=== PATIENT | female | born 1935 | race Caucasian/White ===

== ENCOUNTER → 2023-09-15 10:00 | Outpatient (REF) | payer MEDICARE, SELFPAY ==
[2023-09-15 12:26] LABS: Hematocrit 34.5 % (37.0-47.0); Mean Corp Hgb Conc. 31.9 g/dL (33.0-37.0); Mean Corpuscular Hgb 27.6 pg (27.0-31.0); Mean Corpuscular Volume 86.7 fL (81.0-99.0); Mean Platelet Volume 9.8 fL (7.4-10.4); Platelet Count 357 10^3/uL (130-400); Red Blood Cell Count 3.98 10^6/uL (4.20-5.40); Red Cell Dist. Width 13.8 % (11.5-14.5); White Blood Cell Count 6.4 10^3/uL (4.8-10.8)
[2023-09-15 12:43] LABS: ALT (SGPT) 18 U/L (0-35); AST (SGOT) 24 U/L (14-36); Albumin 3.3 g/dl (3.5-5.0); Alkaline Phosphatase 170 U/L (38-126); Blood Urea Nitrogen 22 mg/dl (7-17); Calcium 9.7 mg/dl (8.4-10.2); Carbon Dioxide 26 mmol/L (22-30); Chloride 102 mmol/L (98-107); Glucose 97 mg/dl (70-99); Potassium 4.6 mmol/L (3.5-5.1); Sodium 136 mmol/L (135-145); Total Bilirubin 0.2 mg/dl (0.2-1.3); Total Protein 6.2 g/dl (6.3-8.2); eGFR > 60.00
== END ==
LOC: OLABPATH 10:00
PROVIDERS: ATTENDING PHYSICIAN Internal Medicine
DX: I63.9 Cerebral infarction, unspecified (principal); I10 Essential (primary) hypertension; I48.0 Paroxysmal atrial fibrillation
CPT/HCPCS: 36415; 80053; 85027

== ENCOUNTER 2024-06-07 08:09 | Inpatient (IN) | payer MEDICARE, SELFPAY ==
[2024-06-05] VITALS (9 sets, daily range): BP systolic 120–177; BP diastolic 59–119; BMI 21.3; BMI 22.9
--- NOTE | 2024-06-05 10:06 | ED.GENMED ---
History of Present Illness
General
Chief Complaint: Visual Problem
Source: patient
Exam Limitations: none
Time Seen by Provider: 06/05/24 10:00
History of Present Illness
History of Present Illness:
See MDM
Past History
Past History
ED Past Medical History: Arrthythmia and HTN
ED Past Surgical History: None
Social History
Tobacco: Non-smoker
Alcohol: None
Phy Exam
Physical Exam
Physical Exam:
See MDM
Course
Orders/Labs/Results
Orders:
Orders
06/05/24 10:02
EKG [Electrocardiogram (*1)] Stat
Reason for Study: Shortness of Breath
EKG- Treatment ONCE
06/05/24 10:05
CR Chest - 2 Views Urgent
Comment:
Reason For Exam: sob, hypoxia
06/05/24 10:10
Complete Blood Count/With Diff Urgent
Comprehensive Metabolic Panel Urgent
NT-proBNP Urgent
Troponin I Urgent
06/05/24 11:01
*Vancomycin 1,000 mg Loading Dose (consider for adults < 50 kg) Vancomycin 1 Gram/200 ml [Vancocin] 1 gram in 200 ml IV NOW
Aztreonam [Azactam] 1,000 mg IV NOW STA
06/05/24 11:15
Blood Culture Q30M
CHARLES Source: Blood/Venous
Specimen Description:
06/05/24 11:45
Blood Culture Q30M
CHARLES Source: Blood/Venous
Specimen Description:
Abnormal Lab Results
06/05/24
10:10
MCHC 30.2 L g/dL
(33.0-37.0)
RDW 15.0 H %
(11.5-14.5)
Absolute Neuts (auto) 7.1 H 10^3/uL
(1.4-6.5)
Absolute Lymphs (auto) 0.8 L 10^3/uL
(1.2-3.4)
Neutrophils % 80.6 H %
(42.2-75.2)
Lymphocytes % 8.6 L %
(20.5-51.1)
Sodium 146 H mmol/L
(135-145)
BUN 19 H mg/dl
(7-17)
Glucose 121 H mg/dl
(70-99)
06/05/24 10:10
06/05/24 10:10
Vital Signs
Initial and Last Documented VS:
Initial Vital Signs
Temp Pulse Resp BP
97.6 F 79 32 156/96
06/05/24 09:53 06/05/24 09:53 06/05/24 09:53 06/05/24 09:53
Last Documented Vital Signs
Temp Pulse Resp BP Pulse Ox
97.6 F 74 28 156/96 83
06/05/24 09:53 06/05/24 10:08 06/05/24 10:08 06/05/24 10:02 06/05/24 10:02
MDM/Problems Addressed
Differential Diagnosis Includes:
HPI and MDM Narrative:
89-year-old female presenting for evaluation of blurry vision. Patient states both eyes are blurry. She does acknowledge a mild cough and shortness of breath. On arrival, patient found to be hypoxic. Patient requiring 6 L nasal cannula on
arrival. When the oxygen was started, patient states he started to feel better. She denies any blackness in her vision. There is no field cut on exam. She denies leg swelling or leg pain. Patient states she is compliant with her Eliquis making
PE less likely. Will obtain basic blood work and chest x-ray
Physical exam
General: Weak and frail
HEENT: protecting airway. Pupils equal reactive. No field cut noted
Neck: supple
CV: No evidence of cyanosis
Resp: No accessory muscle use. Poor air exchange. No appreciable wheezing
Abd: Non-distended
Extremities: No deformities. No leg edema
Neuro: alert
Psych: Normal affect
Skin: Intact
Problems Addressed including Acute and Chronic Conditions affecting care:
1. Hypoxia
Acuity: acute
Prognosis: unstable
Details: Will obtain chest x-ray, troponin and BNP
2. Blurry vision
Acuity: acute
Prognosis: stable
Details: Potentially in the setting of the hypoxia. No visual field cut noted
Updates
Chest x-ray concerning for right middle lobe pneumonia. Given the hypoxia, will start antibiotics and admit. Given the penicillin allergy, will start vancomycin and aztreonam
Differential Diagnosis (but not limited to): Pneumonia, viral syndrome, stroke
Testing considered: CT head but she denies headache
Drug therapy (if applicable): OTC meds, please see d/c instruction regarding Rx drugs
Amount and/or Complexity of Data Reviewed
Clinical info obtained from: Patient
External data reviewed: N/A
Labs I independently reviewed (but not limited to): BNP mildly elevated
Radiology: X-ray independently reviewed: Chest x-ray concerning for right middle lobe pneumonia
Pulse Ox: hypoxic
EKG independently reviewed: Sinus rhythm, right axis, no STEMI
Workers Compensation Claims Adjuster: Sinus rhythm
Critical Care: N/A
Risk of Complication:
Social Determinants of health: Good social support
Discussed with other providers: Hospitalist
Escalation of Care includes Admit/Obs: Given the hypoxia and pneumonia, will admit for antibiotics and oxygen
Occasional wrong word or 'sound a like' substitutions may have occurred due to the inherent limitations of voice recognition software. Read the chart carefully and recognize, using context, where substitutions have occurred.
*Critical Care Note
Total Time (30-74mins, 75-104mins- exclusive of procedures): Not Applicable
ED Attending Note
-
Portions of this chart may have been created with voice recognition software.� Occasional wrong word or��sound alike� substitutions may have occurred due to the inherent limitations of voice recognition software.
Discharge Plan
Departure
Patient Disposition: Admit
Date of Disposition: 06/05/24
Time of Disposition: 11:03
Admit to: Med/Surg
Presentation/result/management discussed w/ accepting MD/DO: Hospitalist
Discharge Problem:
Hypoxia, PNA (pneumonia)
Referrals:
Venancio Grace DO [Family Provider] -
Interventions
Interventions:
*Risk Screen - Suicide Last Done: 06/05/24 10:09
*General Assessment Last Done: 06/05/24 10:09
*Neglect/Abuse Screening Last Done: 06/05/24 10:09
Discharge Date and Time
Print Language: PUERTO RICAN
[2024-06-05 10:28] LABS: % Basophils 0.7 % (0-2); % Eosinophils 2.6 % (0-6); % Immature Granulocytes 0.2 % (0-0.5); % Lymphocytes 8.6 % (20.5-51.1); % Monocytes 7.3 % (1.7-9.3); % Neutrophils 80.6 % (42.2-75.2); Absolute Basophils 0.1 10^3/uL (0-0.2); Absolute Eosinophils 0.2 10^3/uL (0-0.7); Absolute Lymphocytes 0.8 10^3/uL (1.2-3.4); Absolute Monocytes 0.6 10^3/uL (0.1-0.6); Absolute Neutrophils 7.1 10^3/uL (1.4-6.5); Hematocrit 43.4 % (37.0-47.0); Hemoglobin 13.1 g/dL (12.0-16.0); Mean Corp Hgb Conc. 30.2 g/dL (33.0-37.0); Mean Corpuscular Hgb 28.2 pg (27.0-31.0); Mean Corpuscular Volume 93.5 fL (81.0-99.0); Mean Platelet Volume 9.6 fL (7.4-10.4); Nucleated Red Blood Cells % 0 %; Platelet Count 343 10^3/uL (130-400); Red Blood Cell Count 4.64 10^6/uL (4.20-5.40); White Blood Cell Count 8.8 10^3/uL (4.8-10.8)
[2024-06-05 10:35] LABS: ALT (SGPT) 23 U/L (0-35); AST (SGOT) 28 U/L (14-36); Albumin 4.6 g/dl (3.5-5.0); Alkaline Phosphatase 124 U/L (38-126); Blood Urea Nitrogen 19 mg/dl (7-17); Calcium 9.9 mg/dl (8.4-10.2); Carbon Dioxide 27 mmol/L (22-30); Chloride 105 mmol/L (98-107); Estimated Creatinine Clearance 36 ml/min; Glucose 121 mg/dl (70-99); Potassium 4.4 mmol/L (3.5-5.1); Sodium 146 mmol/L (135-145); Total Bilirubin 0.7 mg/dl (0.2-1.3); Total Protein 7.9 g/dl (6.3-8.2); eGFR > 60.00
[2024-06-05 10:47] LABS: NT-proBNP 2240 pg/ml; Troponin I < 0.012 ng/ml
--- NOTE | 2024-06-05 11:45 | CON.NEURO ---
Neuro Assessment/Plan
Assessment
Acute onset of visual change beginning 4 days ago
Most likely secondary to toxic metabolic encephalopathy which in turn was secondary to the patient's newly discovered pneumonia
Plan
Supportive care as the patient is without symptoms currently
Check visual acuity
Continue apixaban
Continue cyanocobalamin
Continue rosuvastatin
There is no indication at this time that the patient requires revision in her use of apixaban
There is no indication at this time that the patient requires additional neuroimaging
Will follow as needed
Consultation
Order
Date of Consultation: 06/05/24
Requesting Provider: Hospitalist
Reason for Consult: Visual change
Subjective/Objective
Subjective Data
Date of Service: June 05, 2024
Right-handed
Patient presented to this hospital's emergency department with shortness of breath. Symptoms started 4 days ago with URI symptoms and simultaneous blurred vision. The patient's shortness of breath worsened prompting her presentation haziness in
vision, recurrent episode similar to her symptoms when she was in need of new glasses. Patient with equal problems in both eyes.
No other associated symptoms. Patient has had complete resolution of visual changes since presentation to this emergency department after medications were initiated.
Objective Data
Vital Signs
Temp Pulse Resp BP Pulse Ox
36.4 C 58 24 154/88 96
06/05/24 09:53 06/05/24 11:30 06/05/24 11:30 06/05/24 11:00 06/05/24 11:30
Lab Results
06/05/24 10:10
06/05/24 10:10
Sodium 146 mmol/L (135-145) H 06/05/24 10:10
Potassium 4.4 mmol/L (3.5-5.1) 06/05/24 10:10
BUN 19 mg/dl (7-17) H 06/05/24 10:10
Glucose 121 mg/dl (70-99) H 06/05/24 10:10
Calcium 9.9 mg/dl (8.4-10.2) 06/05/24 10:10
Hyi-S-Rvuhdpubkhq Pept 2240 pg/ml 06/05/24 10:10
Patient Allergies
Penicillins Allergy (Verified 06/05/24 10:15)
Unknown
sulfamethazine Allergy (Verified 06/05/24 10:15)
Unknown
trimethoprim Allergy (Verified 06/05/24 10:15)
Unknown
Review of Systems
-
History Source: Patient
All other systems: Reviewed and negative
EENT: Decreased Vision; Negative Swallowing Difficulty
Respiratory: Trouble Breathing
Cardiac: Negative Chest Pain
Abdomen/GI: Negative Incontinence of Stool
Genitourinary: Negative Incontinence
Musculoskeletal: Negative Back Pain or Neck Pain
Neuro: Negative Dizzy or Headache
Physical Exam
-
General: No Apparent Distress, Appears Stated Age and Wearing Oxygen
Eyes: OU Absent Papilledema, Round OU, Binger Conjunctivae and No Ptosis
HEENT: Anicteric and Moist Mucous Membranes
Neck: Full Range of Motion
Respiratory: No Dyspnea
Cardiac: No JVD
GI: Non-distended
Skin: Unremarkable
Extremities: No Clubbing, No Cyanosis and No Edema
Psych: Intact Judgement/Insight
Extended Neurological Exam
Mood & Affect: Mood Unremarkable and Affect Unremarkable
Attention Span & Concentration: Awake, Alert, Interactive and No Difficulty with 2 Step Request
Memory: Unremarkable
Tremor: Hand Tremor Absent and Head Tremor Absent
Speech: Quality Unremarkable and Quantity Unremarkable
Cranial Nerve II: Left Eye: Pupillary Reactivity Unremarkable, Pupillary Size Unremarkable and Visual Harmon Intact
Cranial Nerve II: Right Eye: Pupillary Reactivity Unremarkable, Pupillary Size Unremarkable and Visual Harmon Intact
Cranial Nerves III, IV, : Extraocular Movement: Extraocular Movement Full in all Directions
Cranial Nerve VII: Facial Symmetry: Normal Facial Symmetry
Cranial Nerve VIII: Hearing: Unremarkable Hearing to Normal Conversational Volume
Cranial Nerves IX, X: Palate Movement: Palate Elevation Symmetric
Cranial Nerve XI: Shoulder Shrug: Unremarkable
Cranial Nerve XII: Tongue Protusion: Midline
Muscle Strength, Overall: Full Throughout
Muscle Bulk & Tone: Tone Unremarkable and Decreased Bulk (In bilateral hands)
Pronator Drift: No Drift in Upper Extremities
Deep Tendon Reflexes: Unremarkable Throughout
Touch Sensation: Unremarkable
Coordination: Ubnzbb-zyjy-qlxcdu Testing Unremarkable
Babinski Sign: Absent Bilaterally
Data Reviewed
-
Labs: Report Reviewed
Reviewed with: Physician and Patient
Old Records: Summarized
Medications
-
Active Medications
Generic Name Dose Route Start Last Admin
Trade Name Freq PRN Reason Stop Dose Admin
Vancomycin HCl 1 gram in 200 mls @ 200 mls/hr 06/05/24 11:01
Vancocin IV 06/05/24 12:00
NOW STA
Home Medications
�Medication �Instructions �Recorded
acetaminophen 325 mg tablet 975 mg PO TID 06/05/24
(Tylenol)
amlodipine 5 mg tablet (Norvasc) 5 mg PO DAILY 06/05/24
apixaban 2.5 mg tablet (Eliquis) 2.5 mg PO BID 06/05/24
cyanocobalamin (vitamin B-12) 100 100 mcg PO DAILY 06/05/24
mcg tablet
latanoprost 0.005 % eye drops 1 drp BOTH EYES HS 06/05/24
loratadine 10 mg tablet (Loradamed) 10 mg PO DAILYPRN PRN allergies 06/05/24
metoprolol succinate 100 mg 100 mg PO DAILY 06/05/24
tablet,extended release 24 hr
(Toprol XL)
polyethylene glycol 3350 17 gram 17 g PO DAILYPRN PRN mild pain 06/05/24
oral powder packet (Miralax)
rosuvastatin 5 mg tablet (Crestor) 5 mg PO HS 06/05/24
timolol maleate 0.5 % eye drops 1 drp BOTH EYES DAILY 06/05/24
[2024-06-05] MEDS: AZACTAM 1000 MG IV (12:38)
[2024-06-05] MEDS: VANCOCIN 200 IV (12:43)
--- NOTE | 2024-06-05 13:08 | HPS.HSE ---
Family Physician
-
Family Physician: Venancio Grace
Chief Complaint
-
Lightheadedness and Blurry Vision
History of Present Illness
89 y/o female with past medical history of cerebrovascular accident in August 2023 (with RLE and numbness since then, per patient) -- was hospitalized at [facility], hip fracture s/p surgery (August 2023 -- [facility]),
wheelchair-bound (following CVA in 2023), atrial fibrillation/atrial flutter, UTI in January 2024 (hospitalized at [facility]), hypertension, hyperlipidemia, glaucoma, history of blurry vision (with the Metoprolol), osteoarthritis and osteoporosis,
presented with lightheadedness since this morning. Patient said she was feeling lightheaded (near-passing out feeling), and had episodes of lightheadedness with each episode lasting a few minutes. Around that time, she also reported her vision was
getting more blurry; she reported history of glaucoma and having blurry vision with high doses of Metoprolol -- which was reduced in the past to help with the blurry vision. She now says her blurry vision is significantly improved and she can read
and see things fine currently. Patient also reported chest congestion with mucus feeling in her chest which is improving; she had associated shortness of breath which is improving, per patient. She denied any chest pain or fever or any other new
symptoms or complaints.
Medical History
Past Medical History
Past Medical History: Reports Other (As per HPI above)
Past Surgical History: Reports Orthopedic (Hip Fracture surgery in August 2023)
Social History
Tobacco: Former Smoker
Alcohol: None
Drug: None
Family History
Family History: CAD and Other (Arthritis)
Allergies / Home Medications
Allergies reflects when Allergies were last updated in [employer].
Home Medications with original date entered in [facility]
Allergy/Medication List:
Allergies
Allergy/AdvReac Type Severity Reaction Status Date / Time
Penicillins Allergy Unknown Verified 06/05/24 10:15
sulfamethazine Allergy Unknown Verified 06/05/24 10:15
trimethoprim Allergy Unknown Verified 06/05/24 10:15
Home Medications
acetaminophen 325 mg tablet (Tylenol) 975 mg PO TID 06/05/24
amlodipine 5 mg tablet (Norvasc) 5 mg PO DAILY 06/05/24
apixaban 2.5 mg tablet (Eliquis) 2.5 mg PO BID 06/05/24
cyanocobalamin (vitamin B-12) 100 mcg tablet 100 mcg PO DAILY 06/05/24
latanoprost 0.005 % eye drops 1 drp BOTH EYES HS 06/05/24
loratadine 10 mg tablet (Loradamed) 10 mg PO DAILYPRN PRN allergies 06/05/24
metoprolol succinate 100 mg tablet,extended release 24 hr (Toprol XL) 100 mg PO DAILY 06/05/24
polyethylene glycol 3350 17 gram oral powder packet (Miralax) 17 g PO DAILYPRN PRN mild pain 06/05/24
rosuvastatin 5 mg tablet (Crestor) 5 mg PO HS 06/05/24
timolol maleate 0.5 % eye drops 1 drp BOTH EYES DAILY 06/05/24
Review of Systems
-
A 12 point ROS was completed and negative except as noted: Yes
Physical Exam
Vital Signs
Vital Signs
Temp Pulse Resp BP Pulse Ox
97.6 F 58 24 154/88 96
06/05/24 09:53 06/05/24 11:30 06/05/24 11:30 06/05/24 11:00 06/05/24 11:30
Physical Exam
General: No Apparent Distress, Comfortable and Conversant
HEENT: NormoCephalic and Moist mucous membranes
Respiratory: Clear
Cardiac: S1/S2 and Regular Rhythm
GI: Soft, Non Tender and Normal Bowel Sounds
Musculoskeletal: No Cyanosis and No Edema
Skin: Warm and Dry
Neuro: Awake, Alert, AO x 3, Nonfocal/grossly intact (except for bilateral lower extremity weakness (right>left) and RLE numbness: patient stated these neurological findings are chronic since August 2023) and Other (Visual Acuity intact
bilaterally)
Psych: Calm and Intact Judgment/Insight
Laboratory Results
-
06/05/24 10:10
06/05/24 10:10
Laboratory Results
Total Bilirubin 0.7 mg/dl (0.2-1.3) 06/05/24 10:10
AST 28 U/L (14-36) 06/05/24 10:10
ALT 23 U/L (0-35) 06/05/24 10:10
Alkaline Phosphatase 124 U/L (38-126) 06/05/24 10:10
Troponin I < 0.012 ng/ml 06/05/24 10:10
Impression/Plan
-
Assessment/Plan
Near Syncope
Blurry Vision - Significantly Improved
-Possibly due to hypoxia
-Echocardiogram
-EKG noted
-Trend troponins
-Monitor on telemetry monitoring
-Orthostatic Vital Signs
-Discussed case with on-call home health outreach coordinator, Dr. Page, who recommended monitoring the patient's vision for now. no need for urgent intervention or transfer
-Consulted neurology, appreciate their evaluation and recommendations
Concern for Acute Hypoxic Respiratory Failure Secondary to CHF vs. Possible Pneumonia
Recent Chest Congestion and Shortness of Breath
-Received antibiotics in the ER, although no leukocytosis or concern
-ProBNP elevated at 2240
-Lasix IV 40 mg BID -- discussed with nephrology, okay to do the Lasix in setting of patient's mild hypernatremia, as long as we do not fluid restrict patient
-No PO fluid restriction for now
-Check VBG to check for any CO2 retention
-Daily weights, I's and O's
-Cardiology consulted, appreciate their evaluation and recommendations
-Patient stated that she wishes to receive antibiotics and IV fluids this admission if needed
Mild Hypernatremia
-Sodium 146, patient is eating and drinking now
-Since will do Lasix IV 40 mg BID -- discussed with nephrology, okay to do the Lasix in setting of patient's mild hypernatremia, as long as we do not fluid restrict patient
-Monitor BMP to see whether patient needs D5W IV fluids
Cerebrovascular accident in August 2023 (with RLE and numbness since then, per patient) -- was hospitalized at [facility]
Hip fracture s/p surgery (August 2023 -- [facility]), wheelchair-bound (following CVA and hip fracture surgery in 2023)
Atrial fibrillation/atrial flutter
-Continue home Toprol XL
-Continue Eliquis
UTI in January 2024 (hospitalized at [facility])
Penicillin Allergy
Allergy to Sulfamethoxazole-Trimethoprim
Hypertension
-Continue outpatient Amlodipine and Toprol XL
Hyperlipidemia
-Continue outpatient Rosuvastatin
Glaucoma
-Continue outpatient Latanoprost and Timolol
History of blurry vision
-Patient home Metoprolol was reduced in the past to help with this
Osteoarthritis
Osteoporosis
-PT/OT
-Pain management
-Outpatient follow-up with PCP
DVT Prophylaxis: Eliquis
Code Status: DNR
I spoke extensively to patient's nephew, Toni, over the phone today. All questions and concerns were answered to satisfaction.
Total time spent on taking care of the patient today, including speaking with patient's family, neurology, emergency room provider, and ophthalmology, chart review, placing orders, documentation was 80 minutes.
[2024-06-05 15:05] LABS: Venous Blood Gas B.E. 2.5 mmol/L (-4 to +4); Venous Blood Gas HCO3 28.8 mmol/L (22-27); Venous Blood Gas pCO2 51 mmHg (35-48); Venous Blood Gas pH 7.36 (7.32-7.43); Venous Blood Gas pO2 47 mmHg (30-50)
--- NOTE | 2024-06-05 17:09 | CON.CAR ---
Consultation
Consultation Request
Date/Time Consultation Requested: 06/05/2024
Date/Time Consultation Performed: 06/05/2024
Requesting Provider: Dr. Nesbitt
Performing Provider: Dr. Cabrera
Reason for Consultation: CHF
Medical History
-
History of Present Illness:
89-year-old woman with history of CVA, atrial fibrillation/atrial flutter, maintained on Eliquis, hypertension and hypercholesterolemia who presented with lightheadedness patient reported that she felt lightheaded while watching TV and her vision
felt blurry symptoms persisted for hours. She had intermittent symptoms like this throughout the week. No palpitations heart racing. Denied feeling like she was going to faint. No sense of room spinning. No chest pain palpitations or heart
racing patient reports being nonambulatory since her CVA she has right lower extremity weakness. On presentation patient noted to be hypoxemic with oximetry of 83%. Patient reports improvement of her symptoms shortly after treatment in the ER.
Chest x-ray with bibasilar opacification right greater than left suggesting subsegmental atelectasis and/or pneumonia and possible right greater than left small effusions
. Troponin less than 0.012 proBNP 0
ECG sinus rhythm nonspecific ST abnormality
Past medical history
CVA August 2023
A-fib/atrial flutter.
Hypertension
Hypercholesterolemia
Glaucoma
Osteoporosis
Hip fracture August 2023
Past Medical History
Past Medical History: Other
Social History
Tobacco: Non-Smoker
Family History
Family History: Reviewed & Not Pertinent
Allergies / Home Medications
Allergy/AdvReac Type Severity Reaction Status Date / Time
Penicillins Allergy Unknown Verified 06/05/24 10:15
sulfamethazine Allergy Unknown Verified 06/05/24 10:15
trimethoprim Allergy Unknown Verified 06/05/24 10:15
�Medication �Instructions �Recorded �Confirmed �Type
acetaminophen 325 mg tablet 975 mg PO TID 06/05/24 06/05/24 History
(Tylenol)
amlodipine 5 mg tablet (Norvasc) 5 mg PO DAILY 06/05/24 06/05/24 History
apixaban 2.5 mg tablet (Eliquis) 2.5 mg PO BID 06/05/24 06/05/24 History
cyanocobalamin (vitamin B-12) 100 100 mcg PO DAILY 06/05/24 06/05/24 History
mcg tablet
latanoprost 0.005 % eye drops 1 drp BOTH EYES HS 06/05/24 06/05/24 History
loratadine 10 mg tablet (Loradamed) 10 mg PO DAILYPRN PRN allergies 06/05/24 06/05/24 History
metoprolol succinate 100 mg 100 mg PO DAILY 06/05/24 06/05/24 History
tablet,extended release 24 hr
(Toprol XL)
polyethylene glycol 3350 17 gram 17 g PO DAILYPRN PRN mild pain 06/05/24 06/05/24 History
oral powder packet (Miralax)
rosuvastatin 5 mg tablet (Crestor) 5 mg PO HS 06/05/24 06/05/24 History
timolol maleate 0.5 % eye drops 1 drp BOTH EYES DAILY 06/05/24 06/05/24 History
Review of Systems
-
All other systems: Negative unless noted
Physical Exam
Vital Signs
Temp Pulse Resp BP Pulse Ox
97.8 F 68 20 147/73 97
06/05/24 15:50 06/05/24 15:50 06/05/24 15:50 06/05/24 15:50 06/05/24 15:50
Lab Results
06/05/24 10:10
Troponin I < 0.012 ng/ml 06/05/24 10:10
Spq-C-Gwtwgysaoql Pept 2240 pg/ml 06/05/24 10:10
Physical Exam
General: Well Developed
HEENT: Normocephalic
Cardiac: Regular Rhythm and Other (Low pitched systolic murmur greatest at the apex)
GI: Soft, Non Distended, Normal Bowel Sounds, Organomegaly (None detected) and Other
Musculoskeletal: No Clubbing, No Cyanosis and No Edema
Neuro: Awake
Impression / Plan
-
Respiratory insufficiency
-Continue antibiotics as directed by the hospitalist.
-Small effusions reported on chest x-ray proBNP a little over 1999. Possible component of acute left heart failure. Will assess response of diuretics already given. Continue to monitor renal function
-Echocardiogram on 06/07/2024
.
Lightheadedness with associated vision change. May be related to hypoxemia. Responded promptly to treatment in the ER. Patient may have had improvement with O2. No recurrence since being in the hospital. No evidence of hypotension or arrhythmia
since being hospitalized.
-Optimize respiratory status
-Monitor on telemetry
-Echocardiogram 06/07/2024
.
Murmur. Low pitched systolic murmur greatest at the apex. Assess with echo
.
Atrial fibrillation. Prior history
-In sinus rhythm on admission
-CHADSVASC 6 (age greater than 75, CVA, hypertension, female)
-Continue anticoagulation with Eliquis.
Hypertension. Stable continue to monitor on current therapy
Neuro.history of CVA. Residual right-sided weakness. Visual changes reported may be related to hypoxemia.
-Neurology consulted
Data Reviewed
-
EKG: Tracing Personally Visualized and interpreted and Report Reviewed by me
Radiology: Report Reviewed by me
Medical Tests (Nuc Med, Echo etc): Report Reviewed by me
Labs: Labs Reviewed by me
[2024-06-05] MEDS: TYLENOL 975 MG PO ×2 (17:50→21:00)
[2024-06-05] MEDS: MUCINEX 600 MG PO ×2 (17:51→20:26)
[2024-06-05] MEDS: LASIX 40 MG IV (17:51)
[2024-06-05] MEDS: ELIQUIS 2.5 MG PO (20:26)
[2024-06-05 20:56] LABS: Blood Urea Nitrogen 19 mg/dl (7-17); Calcium 9.2 mg/dl (8.4-10.2); Carbon Dioxide 27 mmol/L (22-30); Chloride 106 mmol/L (98-107); Estimated Creatinine Clearance 36 ml/min; Glucose 109 mg/dl (70-99); Potassium 3.9 mmol/L (3.5-5.1); Sodium 142 mmol/L (135-145); eGFR > 60.00
[2024-06-05] MEDS: CRESTOR 5 MG PO (21:00)
[2024-06-05] MEDS: XALATAN OPHTHALMIC SOLUTION 1 DROP BOTH EYES (21:04)
[2024-06-05 21:06] LABS: Troponin I < 0.012 ng/ml
[2024-06-06] VITALS (8 sets, daily range): BP systolic 106–160; BP diastolic 58–107; PULSE 65–76; O2SAT 94–97; BMI 21.9
[2024-06-06 03:29] LABS: Blood Urea Nitrogen 16 mg/dl (7-17); Calcium 9.2 mg/dl (8.4-10.2); Carbon Dioxide 28 mmol/L (22-30); Chloride 106 mmol/L (98-107); Estimated Creatinine Clearance 36 ml/min; Glucose 90 mg/dl (70-99); Potassium 3.9 mmol/L (3.5-5.1); Sodium 144 mmol/L (135-145); eGFR > 60.00
[2024-06-06 03:38] LABS: Troponin I < 0.012 ng/ml
[2024-06-06 04:43] LABS: B.E. 4.5 mmol/L; HCO3 29.2 mmol/L (21-28); PCO2 43 mmHg (32-35); PO2 75 mmHg (83-108); pH 7.44 (7.35-7.45)
[2024-06-06 06:19] LABS: Blood Urea Nitrogen 16 mg/dl (7-17); Calcium 9.1 mg/dl (8.4-10.2); Carbon Dioxide 30 mmol/L (22-30); Chloride 105 mmol/L (98-107); Estimated Creatinine Clearance 36 ml/min; Glucose 92 mg/dl (70-99); Magnesium 1.8 mg/dl (1.6-2.3); Potassium 3.8 mmol/L (3.5-5.1); Sodium 142 mmol/L (135-145); eGFR > 60.00
[2024-06-06 06:54] LABS: % Basophils 0.5 % (0-2); % Eosinophils 4.4 % (0-6); % Immature Granulocytes 0.3 % (0-0.5); % Lymphocytes 11.7 % (20.5-51.1); % Neutrophils 73.1 % (42.2-75.2); Absolute Eosinophils 0.3 10^3/uL (0-0.7); Absolute Lymphocytes 0.7 10^3/uL (1.2-3.4); Absolute Monocytes 0.6 10^3/uL (0.1-0.6); Absolute Neutrophils 4.4 10^3/uL (1.4-6.5); Hematocrit 32.9 % (37.0-47.0); Hemoglobin 10.5 g/dL (12.0-16.0); Mean Corp Hgb Conc. 31.9 g/dL (33.0-37.0); Mean Corpuscular Hgb 29.2 pg (27.0-31.0); Mean Corpuscular Volume 91.6 fL (81.0-99.0); Mean Platelet Volume 9.4 fL (7.4-10.4); Nucleated Red Blood Cells % 0 %; Platelet Count 227 10^3/uL (130-400); Red Blood Cell Count 3.59 10^6/uL (4.20-5.40); Red Cell Dist. Width 14.7 % (11.5-14.5); White Blood Cell Count 6.1 10^3/uL (4.8-10.8)
[2024-06-06 07:05] LABS: O2 Therapy 90%
[2024-06-06 09:05] LABS: Blood Urea Nitrogen 14 mg/dl (7-17); Calcium 9.2 mg/dl (8.4-10.2); Carbon Dioxide 31 mmol/L (22-30); Chloride 104 mmol/L (98-107); Estimated Creatinine Clearance 36 ml/min; Glucose 86 mg/dl (70-99); Potassium 4.1 mmol/L (3.5-5.1); Sodium 144 mmol/L (135-145); eGFR > 60.00
[2024-06-06] MEDS: MUCINEX 600 MG PO ×2 (09:21→20:08)
[2024-06-06] MEDS: LASIX 40 MG IV ×2 (09:21→16:32)
[2024-06-06] MEDS: TYLENOL 975 MG PO ×3 (09:21→22:11)
[2024-06-06] MEDS: VITAMIN B-12 100 MCG PO (09:21)
[2024-06-06] MEDS: NORVASC 5 MG PO (09:21)
[2024-06-06] MEDS: TOPROL XL 100 MG PO (09:21)
[2024-06-06] MEDS: ELIQUIS 2.5 MG PO ×2 (09:21→20:08)
[2024-06-06] MEDS: TIMOPTIC 0.5% OPHTHALMIC SOLUTION 1 DROP BOTH EYES (09:22)
[2024-06-06 09:25] LABS: Troponin I < 0.012 ng/ml
--- NOTE | 2024-06-06 11:04 | CM ---
Patient seen at bedside.
IA completed. KIMBALL form explained & signed.
Patient is a resident at [facility] since September 2023
Spoke with nurse Crowe at [facility]
States wheelchair bound, has had [facility] in the past
Will need scripts ? VN
PLOF: wheelchair
DME: wheelchair, shower chair, grab bars
Denies hh/does not recall snf
PCP: Venancio Grace
PHARMACY: [facility]
PLAN: [facility]
--- NOTE | 2024-06-06 11:48 | W.PN.CD ---
Today's Communication / Plan
-
feels well no recurrent lightheadedness or vision changes. I suspect a lot of these symptoms were related to Hypoxemia on presentation
Continue to optimize resp status.
rosie O2 as tolerated
continue diuretic with close monitoring of renal function
echo 06/06/24
Impression / Plan
-
Respiratory insufficiency
-Continue antibiotics as directed by the hospitalist.
-Small effusions reported on chest x-ray proBNP a little over 1999. Possible component of acute left heart failure. Will assess response of diuretics already given. Continue to monitor renal function
-Echocardiogram on 06/07/2024
.
Lightheadedness with associated vision change. May be related to hypoxemia. Responded promptly to treatment in the ER. Patient may have had improvement with O2. No recurrence since being in the hospital. No evidence of hypotension or arrhythmia
since being hospitalized.
-Optimize respiratory status
-Monitor on telemetry
-Echocardiogram 06/07/2024
.
Murmur. Low pitched systolic murmur greatest at the apex. Assess with echo
.
Atrial fibrillation. Prior history
-In sinus rhythm on admission
-CHADSVASC 6 (age greater than 75, CVA, hypertension, female)
-Continue anticoagulation with Eliquis.
Hypertension. Stable continue to monitor on current therapy
Neuro.history of CVA. Residual right-sided weakness. Visual changes reported may be related to hypoxemia.
-Neurology consulted
Physical Exam
Vital Signs/Labs
Vital Signs
Temp Pulse Resp BP Pulse Ox
97.9 F 62 17 120/77 94
06/06/24 11:00 06/06/24 11:00 06/06/24 11:00 06/06/24 11:00 06/06/24 11:00
06/05/24 06/06/24 06/07/24
06:59 06:59 06:59
Actual Weight 44.271 kg
06/06/24 04:26
06/06/24 08:06
Magnesium Cancelled 06/06/24 06:00
06/05/24
10:10
Cjw-G-Rzhjxgxqjjd Pept 2240
LAB Results
06/05/24 06/05/24 06/05/24
10:10 16:00 20:34
Troponin I < 0.012 Cancelled < 0.012
06/05/24 06/06/24 06/06/24
22:00 02:37 08:06
Troponin I Cancelled < 0.012 < 0.012
Physical Exam
Constitutional: No acute distress
Cardiovascular: Rhythm & rate is regular and Systolic murmur present
Respiratory: Respiratory effort normal
GI: Soft and Normal bowel sounds
Neuro/Psych: Alert
Data Reviewed
-
Date of Service: June 06, 2024
Medical Decision Making: Reviewed Test Results
Echo: Report Reviewed by me
X-Ray/CT/US/MRI/NUC/PET: Report Reviewed by me
Medical Tests (PFT, Pathology etc): Report Reviewed by me
Labs: Labs Reviewed by me
[2024-06-06 11:49] LABS: Urine Albumin Negative (Neg - Trace); Urine Bilirubin Negative (Negative); Urine Character Clear (Clear); Urine Color Yellow; Urine Glucose Negative (Negative); Urine Ketone Negative (Negative); Urine Leukocyte 1+ (Negative); Urine Nitrite Negative (Negative); Urine Occult Blood Negative (Negative); Urine Urobilinogen Negative (Neg - 1+)
[2024-06-06 12:07] LABS: Urine Squamous Cell >30 /LPF (Few)
[2024-06-06 12:08] LABS: Urine White Cell 30-40 /HPF (0-5)
[2024-06-06 12:09] LABS: Urine Red Blood Cell 0-2 /HPF (0-2)
--- NOTE | 2024-06-06 12:10 | W.PN.HOSP.TC ---
Today's Communication/Plan
-
Continue IV diuresis -- symptoms improved significantly since admission
Appreciate pulm eval
Appreciate cardio
Assessment / Plan
Assessment / Plan
Physical Exam
General: Not in Acute Distress
HEENT: Normocephalic and Moist mucous membranes
Respiratory: Clear to Auscultation Bilaterally
Cardiac: S1/S2 and Regular Rhythm
GI: Soft, Non Tender and Normal Bowel Sounds
Musculoskeletal: No Cyanosis and No Edema
Skin: Warm and Dry
Neuro: Awake, Alert, AO x 3, Nonfocal/grossly intact (except for bilateral lower extremity weakness (right>left) and RLE numbness: patient stated these neurological findings are chronic since August 2023) and Other (Visual Acuity intact
bilaterally)
Psych: Calm and Intact Judgment/Insight
Assessment/Plan
89 y/o female with past medical history of cerebrovascular accident in August 2023 (with RLE and numbness since then, per patient) -- was hospitalized at [facility], hip fracture s/p surgery (August 2023 -- [facility]),
wheelchair-bound (following CVA in 2023), atrial fibrillation/atrial flutter, UTI in January 2024 (hospitalized at [place]), hypertension, hyperlipidemia, glaucoma, history of blurry vision (with the Metoprolol), osteoarthritis and osteoporosis,
presented with lightheadedness since 06/05/24 morning. Patient said she was feeling lightheaded (near-passing out feeling), and had episodes of lightheadedness with each episode lasting a few minutes. Around that time, she also reported her vision
was getting more blurry; she reported history of glaucoma and having blurry vision with high doses of Metoprolol -- which was reduced in the past to help with the blurry vision. This admission, she said her blurry vision is significantly improved
and she can read and see things fine at the time of admission. Patient also reported chest congestion with mucus feeling in her chest which is improving; she had associated shortness of breath which is improving, per patient.
Near Syncope - RESOLVED
Blurry Vision - RESOLVED
-Possibly due to hypoxia
-Echocardiogram
-EKG noted
-Troponins negative so far
-Monitor on telemetry monitoring
-Orthostatic Vital Signs negative
-Discussed on 06/05/24 patient's case with on-call electrician assistant, Dr. Page, who recommended monitoring the patient's vision for now. no need for urgent intervention or transfer
-Consulted neurology, appreciate their evaluation and recommendations
Acute Hypoxic Respiratory Failure Secondary to CHF vs. Possible Pneumonia -- patient does not use oxygen at home
Recent Chest Congestion and Shortness of Breath - RESOLVED
-Received antibiotics in the ER, although no leukocytosis or concern for pneumonia
-Patient denies any signs or symptoms of pneumonia currently
-No antibiotics needed at this time
-ProBNP elevated at 2240
-Lasix IV 40 mg BID -- discussed with nephrology, okay to do the Lasix in setting of patient's mild hypernatremia, as long as we do not fluid restrict patient
-No PO fluid restriction for now
-Daily weights, I's and O's
-Cardiology consulted, appreciate their evaluation and recommendations
-Patient stated that she wishes to receive antibiotics and IV fluids this admission if needed
Hypercapnia on Blood Gas Studies
-Consulted pulm, appreciate their evaluation and recommendations
Mild Hypernatremia - RESOLVED
-Sodium 146, patient is eating and drinking now
-Since will do Lasix IV 40 mg BID -- discussed with nephrology, okay to do the Lasix in setting of patient's mild hypernatremia, as long as we do not fluid restrict patient
-Monitor BMP
Cerebrovascular accident in August 2023 (with RLE and numbness since then, per patient) -- was hospitalized at [facility]
Hip fracture s/p surgery (August 2023 -- [facility]), wheelchair-bound (following CVA and hip fracture surgery in 2023)
Atrial fibrillation/atrial flutter
-Continue home Toprol XL
-Continue Eliquis
UTI in January 2024 (hospitalized at [place])
Penicillin Allergy
Allergy to Sulfamethoxazole-Trimethoprim
Hypertension
-Continue outpatient Amlodipine and Toprol XL
Hyperlipidemia
-Continue outpatient Rosuvastatin
Glaucoma
-Continue outpatient Latanoprost and Timolol
History of blurry vision
-Patient home Metoprolol was reduced in the past to help with this
Osteoarthritis
Osteoporosis
-PT/OT
-Pain management
-Outpatient follow-up with PCP
DVT Prophylaxis: Eliquis
Code Status: DNR
Anticipated Discharge: 24 - 48 hours
Subjective/Interval History
-
Date of Service: June 06, 2024
Patient was seen and examined. She reported her symptoms are significantly improved compared to when she came in - she had a very brief episode of lightheadedness and very brief blurry vision when she sat up but overall this is very much improved
per patient, and she denied any fever, cough, chest pain or shortness of breath.
Objective Data
-
Labs:
Laboratory Results
06/06/24 06/06/24 06/06/24
02:37 04:24 04:26
WBC 6.1
Hgb 10.5 L
Hct 32.9 L
Plt Count 227 D
HCO3 29.2 H
Sodium 144 142
Potassium 3.9 3.8
Chloride 106 105
Carbon Dioxide 28 30
BUN 16 16
Creatinine 0.5 L 0.6
Glucose 90 92
Calcium 9.2 9.1
06/06/24 06/06/24
06:00 08:06
WBC
Hgb
Hct
Plt Count
HCO3
Sodium Cancelled 144
Potassium Cancelled 4.1
Chloride Cancelled 104
Carbon Dioxide Cancelled 31 H
BUN Cancelled 14
Creatinine Cancelled 0.6
Glucose Cancelled 86
Calcium Cancelled 9.2
Vital Signs:
Vital Signs
Temp Pulse Resp BP Pulse Ox
97.9 F 62 17 120/77 94
06/06/24 11:00 06/06/24 11:00 06/06/24 11:00 06/06/24 11:00 06/06/24 11:00
I&O
06/05/24 06/06/24 06/07/24
06:59 06:59 06:59
Intake Total 120 / 120
Balance 120 / 120
--- NOTE | 2024-06-06 12:23 | CON.PUL ---
Consultation
Consultation Request
Date/Time Consultation Requested: 06/06/24
Date/Time Consultation Performed: 06/06/24
Performing Provider: Elia
Reason for Consultation: Hypoxemia
Medical History
-
History of Present Illness:
Patient is an 89-year-old female with previous history of CVA, A-fib/a flutter, UTI, hypertension presenting to ER with lightheadedness x 1 day. She had feeling of lightheadedness with near syncope, with associated changes in vision, shortness
of breath. Chest x-ray demonstrating mild cardiomegaly with right greater than left basilar opacification, proBNP greater than 2000.
Denies prior history of lung disease, lifelong non-smoker.
Denies family history of lung disease.
Past Medical History
Past Medical History: Other (see list below)
Social History
Tobacco: Non-smoker
Alcohol: None
Drug: None
Family History
Family History: Reviewed & Not Pertinent
Allergies / Home Medications
Allergies
Allergy/AdvReac Type Severity Reaction Status Date / Time
Penicillins Allergy Unknown Verified 06/05/24 10:15
sulfamethazine Allergy Unknown Verified 06/05/24 10:15
trimethoprim Allergy Unknown Verified 06/05/24 10:15
Home Medications
�Medication �Instructions �Recorded �Confirmed �Last Taken �Type
acetaminophen 325 mg tablet 975 mg PO TID 06/05/24 06/05/24 Unknown History
(Tylenol)
amlodipine 5 mg tablet (Norvasc) 5 mg PO DAILY Blood Pressure 06/05/24 06/05/24 Unknown History
apixaban 2.5 mg tablet (Eliquis) 2.5 mg PO BID Blood Clot 06/05/24 06/05/24 Unknown History
Prevention/Tx
cyanocobalamin (vitamin B-12) 100 100 mcg PO DAILY Smoking Cessation 06/05/24 06/05/24 Unknown History
mcg tablet
latanoprost 0.005 % eye drops 1 drp BOTH EYES HS Eye Condition 06/05/24 06/05/24 Unknown History
loratadine 10 mg tablet (Loradamed) 10 mg PO DAILYPRN PRN allergies 06/05/24 06/05/24 Unknown History
metoprolol succinate 100 mg 100 mg PO DAILY Heart 06/05/24 06/05/24 Unknown History
tablet,extended release 24 hr Disease/Condition
(Toprol XL)
polyethylene glycol 3350 17 gram 17 g PO DAILYPRN PRN mild pain 06/05/24 06/05/24 Unknown History
oral powder packet (Miralax)
rosuvastatin 5 mg tablet (Crestor) 5 mg PO HS High Cholesterol 06/05/24 06/05/24 Unknown History
timolol maleate 0.5 % eye drops 1 drp BOTH EYES DAILY Eye Condition 06/05/24 06/05/24 Unknown History
Review of Systems
-
History Source: Patient
All other systems: Negative unless noted
Vitals / Labs / Diagnostic Testing
Vital Signs
Temp Pulse Resp BP Pulse Ox
97.9 F 62 17 120/77 94
06/06/24 11:00 06/06/24 11:00 06/06/24 11:00 06/06/24 11:00 06/06/24 11:00
Lab Data
06/06/24 04:26
06/06/24 08:06
Laboratory Results
06/06/24
04:24
pH 7.44
pCO2 43 H
pO2 75 L
HCO3 29.2 H
O2 Delivery Level 90%
Diagnostic Testing:
Physical Exam
-
HEENT: Normocephalic, Anicteric and Moist Mucous Membranes
Cardiovascular: S1/S2, Regular Rhythm and Peripheral Edema
Respiratory: Rales and Non-Labored Respirations
GI: Soft, Non Distended and Non Tender
Neurology: Awake, Alert, Oriented and No Motor Deficits
Skin: Warm, Dry and Good Color
General: Comfortable and Other (NAD)
Assessment
-
Patient is an 89-year-old female with previous history of CVA, A-fib/a flutter, UTI, hypertension presenting to ER with lightheadedness x 1 day. She had feeling of lightheadedness with near syncope, with associated changes in vision, shortness
of breath. Chest x-ray demonstrating mild cardiomegaly with right greater than left basilar opacification, proBNP greater than 2000. We are consulted for eval.
Acute hypoxic respiratory failure
Acute heart failure exacerbation
Effusions on the chest x-ray right greater than left
Anemia, hemoglobin 10
Lightheadedness, presyncope
Shortness of breath
Conditions present prior to admission
Hip fracture status post surgery August 2023 @[facility]
Former smoker
CVA status post right-sided weakness, wheelchair-bound
A-fib/A-flutter
UTI
Plan
Hypoxemia noted on arrival, O2 marlene 88%
She had not been placed on O2 when hospitalized at [facility] for her hip repair
Home O2 evaluation eventually
Denies prior history of lung disease, lifelong non-smoker.
Denies family history of lung disease.
Suspect patient has possible PE given recent hip fracture, wheelchair bound status
Can obtain CTA now to r/o
CXR/CT obtained indicating possible CHF as well, effusion noted R>L
proBNP elevated
Diuresis per team
No prior ECHO for review, obtain records from [facility]
Had CVA w/u at that time
Repeat imaging in next 24-48 hours following diuresis
Further w/u pending progress
Discussed with patient and nephew at bedside
We will follow
Diagnostic Data
Chest X-Ray: 06/05/24- Mild cardiomegaly. Bibasilar opacification, right greater than left at least in part suggesting subsegmental atelectasis and/or pneumonia and possible right greater than left small pleural effusions.
CT Scan:
Echo:
PFT's:
Reports and relevant images were personally reviewed.
Total time spent on this consultation __75__ minutes which includes review of history, physical exam, medications, laboratory data, personal review of imaging, extensive review of outpatient records, discussion with care team and respiratory therapy.
[2024-06-06] MEDS: XALATAN OPHTHALMIC SOLUTION 1 DROP BOTH EYES (22:11)
[2024-06-06] MEDS: CRESTOR 5 MG PO (22:12)
[2024-06-07 03:55] VITALS: BP 112/68
[2024-06-07 06:00] VITALS: BMI 21.8
--- NOTE | 2024-06-07 07:27 | W.PN.HOSP.TC ---
Today's Communication/Plan
-
Symptoms improved
Stop diuretics
Wean off oxygen
Assessment / Plan
Assessment / Plan
Physical Exam
General: Not in Acute Distress
HEENT: Normocephalic and Moist mucous membranes
Respiratory: Clear to Auscultation Bilaterally
Cardiac: S1/S2 and Regular Rhythm
GI: Soft, Non Tender and Normal Bowel Sounds
Musculoskeletal: No Cyanosis and No Edema
Skin: Warm and Dry
Neuro: Awake, Alert, AO x 3, Nonfocal/grossly intact (except for bilateral lower extremity weakness (right>left) and RLE numbness: patient stated these neurological findings are chronic since August 2023) and Other (Visual Acuity intact
bilaterally)
Psych: Calm and Intact Judgment/Insight
Assessment/Plan
89 y/o female with past medical history of cerebrovascular accident in August 2023 (with RLE and numbness since then, per patient) -- was hospitalized at [facility], hip fracture s/p surgery (August 2023 -- [facility]),
wheelchair-bound (following CVA in 2023), atrial fibrillation/atrial flutter, UTI in January 2024 (hospitalized at [place]), hypertension, hyperlipidemia, glaucoma, history of blurry vision (with the Metoprolol), osteoarthritis and osteoporosis,
presented with lightheadedness since 06/05/24 morning. Patient said she was feeling lightheaded (near-passing out feeling), and had episodes of lightheadedness with each episode lasting a few minutes. Around that time, she also reported her vision
was getting more blurry; she reported history of glaucoma and having blurry vision with high doses of Metoprolol -- which was reduced in the past to help with the blurry vision. This admission, she said her blurry vision is significantly improved
and she can read and see things fine at the time of admission. Patient also reported chest congestion with mucus feeling in her chest which is improving; she had associated shortness of breath which is improving, per patient.
Near Syncope - RESOLVED
Blurry Vision - RESOLVED
-Possibly due to hypoxia
-Echocardiogram
-EKG noted
-Troponins negative so far
-Monitor on telemetry monitoring
-Orthostatic Vital Signs negative
-Discussed on 06/05/24 patient's case with on-call reinforcing iron worker helper, Dr. Page, who recommended monitoring the patient's vision for now. no need for urgent intervention or transfer
-Consulted neurology, appreciate their evaluation and recommendations
Acute Hypoxic Respiratory Failure Secondary to CHF vs. Possible Pneumonia -- patient does not use oxygen at home
Recent Chest Congestion and Shortness of Breath - RESOLVED
-Received antibiotics in the ER, although no leukocytosis or concern for pneumonia
-Patient denies any signs or symptoms of pneumonia currently
-No antibiotics needed at this time
-ProBNP elevated at 2240
-Stop diuretics as per cardiology (previously: Lasix IV 40 mg BID -- discussed with nephrology, okay to do the Lasix in setting of patient's mild hypernatremia, as long as we do not fluid restrict patient)
-Daily weights, I's and O's
-Cardiology consulted, appreciate their evaluation and recommendations
-Patient stated that she wishes to receive antibiotics and IV fluids this admission if needed
-CT Chest negative for PE, and lower extremity ultrasound is negative for DVT
Hypercapnia on Blood Gas Studies
-Consulted pulm, appreciate their evaluation and recommendations
Mild Hypernatremia - RESOLVED
-Sodium 146, patient is eating and drinking now
-Since will do Lasix IV 40 mg BID -- discussed with nephrology, okay to do the Lasix in setting of patient's mild hypernatremia, as long as we do not fluid restrict patient
-Monitor BMP
Cerebrovascular accident in August 2023 (with RLE and numbness since then, per patient) -- was hospitalized at [facility]
Hip fracture s/p surgery (August 2023 -- [facility]), wheelchair-bound (following CVA and hip fracture surgery in 2023)
Atrial fibrillation/atrial flutter
-Continue home Toprol XL
-Continue Eliquis
UTI in January 2024 (hospitalized at [place])
Penicillin Allergy
Allergy to Sulfamethoxazole-Trimethoprim
Hypertension
-Continue outpatient Amlodipine and Toprol XL
Hyperlipidemia
-Continue outpatient Rosuvastatin
Glaucoma
-Continue outpatient Latanoprost and Timolol
History of blurry vision
-Patient home Metoprolol was reduced in the past to help with this
Osteoarthritis
Osteoporosis
-PT/OT
-Pain management
-Outpatient follow-up with PCP
DVT Prophylaxis: Eliquis
Code Status: DNR
Anticipated Discharge: 24 - 48 hours
Subjective/Interval History
-
Date of Service: June 07, 2024
Patient was seen and examined. She reported her blurry vision is a lot less, denied any new symptoms or complaints.
Objective Data
-
Labs:
Laboratory Results
06/07/24
06:00
WBC Pending
Hgb Pending
Hct Pending
Plt Count Pending
Sodium Pending
Potassium Pending
Chloride Pending
Carbon Dioxide Pending
BUN Pending
Creatinine Pending
Glucose Pending
Calcium Pending
Vital Signs:
Vital Signs
Temp Pulse Resp BP Pulse Ox
97.0 F 66 16 112/68 96
06/07/24 03:55 06/07/24 03:55 06/07/24 03:55 06/07/24 03:55 06/07/24 03:55
I&O
06/06/24 06/07/24 06/08/24
06:59 06:59 06:59
Intake Total 120 / 120 960 / 960
Balance 120 / 120 960 / 960
--- NOTE | 2024-06-07 07:46 | W.PN.CD ---
Today's Communication / Plan
-
Stop diuretics
Echo pending
Pending echo results we will sign off please call with questions/concerns
Impression / Plan
-
Respiratory insufficiency likely 2/2 pneumonia
-Continue antibiotics as directed by the hospitalist.
-Small effusions reported on chest x-ray proBNP a little over 1999. Possible component of acute left heart failure. Breathing improved will stop diuretics today
-Echocardiogram on 06/07/2024
.
Lightheadedness with associated vision change. May be related to hypoxemia. Responded promptly to treatment in the ER. Patient may have had improvement with O2. No recurrence since being in the hospital. No evidence of hypotension or arrhythmia
since being hospitalized.
-Optimize respiratory status
-Monitor on telemetry
-Echocardiogram 06/07/2024
.
Murmur. Low pitched systolic murmur greatest at the apex. Assess with echo
.
Atrial fibrillation. Prior history
-In sinus rhythm on admission
-CHADSVASC 6 (age greater than 75, CVA, hypertension, female)
-Continue anticoagulation with Eliquis.
Hypertension. Stable continue to monitor on current therapy
Neuro.history of CVA. Residual right-sided weakness. Visual changes reported may be related to hypoxemia.
-Neurology consulted
Physical Exam
Vital Signs/Labs
Vital Signs
Temp Pulse Resp BP Pulse Ox
97.0 F 66 16 112/68 96
06/07/24 03:55 06/07/24 03:55 06/07/24 03:55 06/07/24 03:55 06/07/24 03:55
06/06/24 06/07/24 06/08/24
06:59 06:59 06:59
Actual Weight 97 lb 9.6 oz 97 lb 1 oz
Magnesium Cancelled 06/06/24 06:00
06/05/24
10:10
Hae-W-Jwldoyppvur Pept 2240
LAB Results
06/05/24 06/05/24 06/05/24
10:10 16:00 20:34
Troponin I < 0.012 Cancelled < 0.012
06/05/24 06/06/24 06/06/24
22:00 02:37 08:06
Troponin I Cancelled < 0.012 < 0.012
06/06/24
14:22
Troponin I Cancelled
Physical Exam
Constitutional: No acute distress
EENT: Anicteric
Cardiovascular: Rhythm & rate is regular and Pedal edema is absent
Respiratory: Respiratory effort normal and Lungs clear to auscul.
GI: Soft
Neuro/Psych: AO x 3
Data Reviewed
-
Date of Service: June 07, 2024
EKG: Tracing Personally Visualized and interpreted (sr)
Echo: Ordered by me
Labs: Labs Reviewed by me
[2024-06-07 07:51] VITALS: BP 129/74
[2024-06-07] MEDS: TYLENOL 975 MG PO ×3 (09:03→21:26)
[2024-06-07] MEDS: MUCINEX 600 MG PO ×2 (09:03→21:26)
[2024-06-07] MEDS: VITAMIN B-12 100 MCG PO (09:03)
[2024-06-07] MEDS: NORVASC 5 MG PO (09:03)
[2024-06-07] MEDS: LASIX 40 MG IV ×2 (09:03→16:43)
[2024-06-07] MEDS: ELIQUIS 2.5 MG PO ×2 (09:03→21:27)
[2024-06-07] MEDS: TIMOPTIC 0.5% OPHTHALMIC SOLUTION 1 DROP BOTH EYES (09:05)
[2024-06-07] MEDS: TOPROL XL 100 MG PO (09:08)
[2024-06-07 09:20] LABS: % Basophils 0.5 % (0-2); % Eosinophils 3.3 % (0-6); % Immature Granulocytes 0.4 % (0-0.5); % Lymphocytes 9.3 % (20.5-51.1); % Monocytes 8.7 % (1.7-9.3); % Neutrophils 77.8 % (42.2-75.2); Absolute Eosinophils 0.2 10^3/uL (0-0.7); Absolute Lymphocytes 0.7 10^3/uL (1.2-3.4); Absolute Monocytes 0.6 10^3/uL (0.1-0.6); Absolute Neutrophils 5.7 10^3/uL (1.4-6.5); Hematocrit 40.7 % (37.0-47.0); Hemoglobin 12.7 g/dL (12.0-16.0); Mean Corp Hgb Conc. 31.2 g/dL (33.0-37.0); Mean Corpuscular Hgb 28.7 pg (27.0-31.0); Mean Corpuscular Volume 91.9 fL (81.0-99.0); Mean Platelet Volume 9.9 fL (7.4-10.4); Nucleated Red Blood Cells % 0 %; Platelet Count 307 10^3/uL (130-400); Red Blood Cell Count 4.43 10^6/uL (4.20-5.40); Red Cell Dist. Width 14.5 % (11.5-14.5); White Blood Cell Count 7.3 10^3/uL (4.8-10.8)
[2024-06-07 09:35] LABS: Blood Urea Nitrogen 20 mg/dl (7-17); Calcium 9.4 mg/dl (8.4-10.2); Carbon Dioxide 33 mmol/L (22-30); Chloride 97 mmol/L (98-107); Estimated Creatinine Clearance 36 ml/min; Glucose 89 mg/dl (70-99); Potassium 3.8 mmol/L (3.5-5.1); Sodium 142 mmol/L (135-145); eGFR > 60.00
--- NOTE | 2024-06-07 10:00 | W.PN.PUL.V3 ---
Today's Communication / Plan
-
wean oxygen.
Diuresis as tolerated.
CT chest and lower extremity ultrasound noted.
Echocardiogram noted
Assessment
-
Patient is an 89-year-old female with previous history of CVA, A-fib/a flutter, UTI, hypertension presenting to ER with lightheadedness x 1 day. She had feeling of lightheadedness with near syncope, with associated changes in vision, shortness
of breath. Chest x-ray demonstrating mild cardiomegaly with right greater than left basilar opacification, proBNP greater than 2000. We are consulted for eval.
Acute hypoxic respiratory failure
Acute heart failure exacerbation
Effusions on the chest x-ray right greater than left
Anemia, hemoglobin 10
Lightheadedness, presyncope
Shortness of breath
Conditions present prior to admission:
Hip fracture status post surgery August 2023 @[facility]
Former smoker
CVA status post right-sided weakness, wheelchair-bound
A-fib/A-flutter
UTI
Plan
Respiratory status relatively stable.
Supplemental oxygen-attempt to wean.
Home oxygen supplementation evaluation prior to discharge
She had not been placed on O2 when hospitalized at [facility] for her hip repair
Denies prior history of lung disease, lifelong non-smoker.
Denies family history of lung disease.
CT angiogram 06/07/24-no evidence for pulmonary embolism, small bilateral pleural effusions, bibasilar airspace disease-subsegmental atelectasis or pneumonia, diffuse mosaic pattern, likely reflective of small vessel was small airway disease,
moderate hiatal hernia, mild coronary artery calcifications.
Lower extremity ultrasound 06/07/24-negative for bilateral lower extremity
Note:proBNP elevated
Diuresis as tolerated.
Monitor weight, intake, output, renal function, lower extremity edema.
Cardiology following-correspondence reviewed-stopped diuretics
Echocardiogram 06/07/24-EF 65-70%, severe biatrial enlargement, PA systolic 45-50.
DVT prophylaxis-Eliquis
Repeat imaging in next 24-48 hours following diuresis
Diagnostic Data
Chest X-Ray: 06/05/24- Mild cardiomegaly. Bibasilar opacification, right greater than left at least in part suggesting subsegmental atelectasis and/or pneumonia and possible right greater than left small pleural effusions.
Reports and relevant images were personally reviewed.
Subjective Data
-
Date of Service:
Date of Service: June 07, 2024
Chief Complaint: Pulmonary Follow Up and Dyspnea Follow Up
Subjective:
no complaints of worsening shortness of breath, no chest pain or abdominal pain
Review of Systems
General: Other ( per HPI)
Objective Data
Data Reviewed
Vital Signs / I&O:
Vital Signs
Temp Pulse Resp BP Pulse Ox
97.4 F 64 18 129/74 97
06/07/24 07:51 06/07/24 07:51 06/07/24 07:51 06/07/24 07:51 06/07/24 07:51
Intake and Output
06/06/24 06/07/24 06/08/24
06:59 06:59 06:59
Intake Total 120 / 120 960 / 960
Balance 120 / 120 960 / 960
SaO2: 97
Nasal Cannula flow liters per minute: 3
Physical Exam
General: Respiratory Distress (n) and Comfortable
HEENT: Normocephalic, Anicteric and Moist Mucous Membranes
Cardiovascular: Regular Rhythm
Respiratory: Wheeze (n), Crackles, Rhonchi (n), Non-Labored Respirations, Accessory Resp Muscle Use (n) and Stridor (n)
GI: Soft, Non Distended and Non Tender
Neurology: Awake, Alert and No Motor Deficits
Skin: Warm, Good Color, Cyanosis (n), Jaundice (n) and Rash (n)
Labs/Micro/Reports
Lab Data
06/07/24 07:53
06/07/24 07:53
Microbiology
06/05/24 20:33 Nose MRSA Screen - Final
Staph aureus MRSA
06/05/24 12:19 Blood/Venous Blood Culture - Preliminary
No Growth in 24 hours- Final report to follow
06/05/24 12:19 Blood/Venous Blood Culture - Preliminary
No Growth in 24 hours- Final report to follow
[2024-06-07 11:21] VITALS: BP 135/69
--- NOTE | 2024-06-07 12:23 | CM ---
auto fleet manager reviewed patient's chart and met with patient and patient has switched to inpatient, IMM completed and placed on chart. [facility] but is able to transfer to /c independently. Patient is
currently requiring 3 liters of oxygen and will need home oxygen evaluation at discharge as patient did not require oxygen prior to admission.
Plan; Patient to return to [facility] when stable, need to see if patient is going to require oxygen at discharge.
[2024-06-07 15:17] VITALS: BP 131/82
[2024-06-07] MEDS: FLUSH (NSS) 2 FLUSH IV (16:45)
[2024-06-07 19:27] VITALS: BP 129/76
[2024-06-07] MEDS: CRESTOR 5 MG PO (21:26)
[2024-06-07] MEDS: XALATAN OPHTHALMIC SOLUTION 1 DROP BOTH EYES (22:33)
[2024-06-07 23:08] VITALS: BP 128/80
[2024-06-08 03:48] VITALS: BP 127/64
[2024-06-08 06:00] VITALS: BMI 21.8
[2024-06-08 07:01] VITALS: BP 123/86
[2024-06-08] MEDS: TOPROL XL 100 MG PO (08:07)
[2024-06-08] MEDS: MUCINEX 600 MG PO (08:07)
[2024-06-08] MEDS: TYLENOL 975 MG PO ×2 (08:07→15:21)
[2024-06-08] MEDS: ELIQUIS 2.5 MG PO (08:08)
[2024-06-08] MEDS: VITAMIN B-12 100 MCG PO (08:08)
[2024-06-08] MEDS: NORVASC 5 MG PO (08:08)
[2024-06-08] MEDS: TIMOPTIC 0.5% OPHTHALMIC SOLUTION 1 DROP BOTH EYES (08:09)
--- NOTE | 2024-06-08 08:23 | PN.CDI ---
CDI
- -
CDI:
Physician Documentation Request
Admit Date: 06/07/24 08:09
Dear Doctor Laz,
Please review the following and provide your response in the progress notes.
Clinical Indicators:
Pt admitted with acute hypoxic respiratory failure secondary to CHF vs. possible pneumonia.
Past medical history list Atrial fibrillation on Eliquis.
If possible, please provide further specificity regarding atrial fibrillation, such as:
Paroxysmal atrial fibrillation - terminates spontaneously or with intervention within 7 days of onset
Persistent atrial fibrillation - episodes of continuous AF that last more than 7 days and do not self-terminate
Permanent atrial fibrillation - when a decision has been made to accept the presence of AF and there is no further attempt to restore or maintain sinus rhythm
Other - please specify
Unable to further specify
Use of terms such as suspected, likely, concern for, or probable (associated with a specific diagnosis that is being evaluated, monitored, or treated as if it exists) are acceptable and can be coded in the inpatient setting, when documented at the
time of discharge.
Thank you,
Jennifer Butts RN, BSN
CDI Specialist
Available via [place] [employer]
Please use your independent medical judgment in providing your response.
[2024-06-08 08:50] LABS: % Basophils 0.5 % (0-2); % Eosinophils 3.7 % (0-6); % Immature Granulocytes 0.3 % (0-0.5); % Lymphocytes 9.5 % (20.5-51.1); % Monocytes 11.6 % (1.7-9.3); % Neutrophils 74.4 % (42.2-75.2); Absolute Eosinophils 0.3 10^3/uL (0-0.7); Absolute Lymphocytes 0.7 10^3/uL (1.2-3.4); Absolute Monocytes 0.9 10^3/uL (0.1-0.6); Absolute Neutrophils 5.6 10^3/uL (1.4-6.5); Hematocrit 38.7 % (37.0-47.0); Hemoglobin 11.9 g/dL (12.0-16.0); Mean Corp Hgb Conc. 30.7 g/dL (33.0-37.0); Mean Corpuscular Hgb 28.2 pg (27.0-31.0); Mean Corpuscular Volume 91.7 fL (81.0-99.0); Mean Platelet Volume 9.6 fL (7.4-10.4); Nucleated Red Blood Cells % 0 %; Platelet Count 276 10^3/uL (130-400); Red Blood Cell Count 4.22 10^6/uL (4.20-5.40); Red Cell Dist. Width 14.5 % (11.5-14.5); White Blood Cell Count 7.5 10^3/uL (4.8-10.8)
[2024-06-08 09:01] LABS: Blood Urea Nitrogen 23 mg/dl (7-17); Calcium 9.5 mg/dl (8.4-10.2); Carbon Dioxide 34 mmol/L (22-30); Chloride 94 mmol/L (98-107); Estimated Creatinine Clearance 27 ml/min; Glucose 90 mg/dl (70-99); Potassium 3.9 mmol/L (3.5-5.1); Sodium 139 mmol/L (135-145); eGFR > 60.00
--- NOTE | 2024-06-08 09:05 | W.PN.CD ---
Today's Communication / Plan
-
No new recommendations OK to discharge
Please call with questions/concerns.
Impression / Plan
-
Respiratory insufficiency likely 2/2 pneumonia
-Continue antibiotics as directed by the hospitalist.
-Small effusions reported on chest x-ray proBNP a little over 1999. Possible component of acute left heart failure. Breathing improved will stop diuretics today
-Echocardiogram on 06/07/2024
.
Lightheadedness with associated vision change. May be related to hypoxemia. Responded promptly to treatment in the ER. Patient may have had improvement with O2. No recurrence since being in the hospital. No evidence of hypotension or arrhythmia
since being hospitalized.
-Optimize respiratory status
-Monitor on telemetry
-Echocardiogram 06/07/2024
.
Murmur. Low pitched systolic murmur greatest at the apex. Assess with echo
.
Atrial fibrillation. Prior history
-In sinus rhythm on admission
-CHADSVASC 6 (age greater than 75, CVA, hypertension, female)
-Continue anticoagulation with Eliquis.
Hypertension. Stable continue to monitor on current therapy
Neuro.history of CVA. Residual right-sided weakness. Visual changes reported may be related to hypoxemia.
-Neurology consulted
Subjective: Feeling OK no new complaints
Echo: CONCLUSIONS
Normal biventricular size and systolic function without regional wall motion
abnormality.
Mild concentric left ventricular hypertrophy.
Severe biatrial enlargement.
Mild mitral regurgitation.
Moderate eccentric tricuspid regurgitation.
Estimated PASP 45-50 mmHg and estimated RA 3 mmHg.
No prior study available for comparison.
Physical Exam
Vital Signs/Labs
Vital Signs
Temp Pulse Resp BP Pulse Ox
97.6 F 62 16 123/86 99
06/08/24 07:01 06/08/24 07:01 06/08/24 07:01 06/08/24 08:07 06/08/24 07:01
06/07/24 06/08/24 06/09/24
06:59 06:59 06:59
Actual Weight 97 lb 1 oz 97 lb 1 oz
06/08/24 07:36
06/08/24 07:36
Magnesium 2.0 mg/dl (1.6-2.3) 06/07/24 07:53
06/05/24
10:10
Ori-Q-Hxitsyeuaew Pept 2240
LAB Results
06/05/24 06/05/24 06/05/24
10:10 16:00 20:34
Troponin I < 0.012 Cancelled < 0.012
06/05/24 06/06/24 06/06/24
22:00 02:37 08:06
Troponin I Cancelled < 0.012 < 0.012
06/06/24
14:22
Troponin I Cancelled
Physical Exam
Constitutional: No acute distress and Comfortable
EENT: Anicteric
Cardiovascular: Rhythm & rate is regular and Pedal edema is absent
Respiratory: Respiratory effort normal and Lungs clear to auscul.
GI: Soft
Neuro/Psych: Alert and Oriented
Data Reviewed
-
Date of Service: June 08, 2024
Medical Decision Making: Reviewed Test Results
EKG: Tracing Personally Visualized and interpreted (sr)
Labs: Labs Reviewed by me
[2024-06-08 09:14] VITALS: O2SAT 96
--- NOTE | 2024-06-08 09:15 | RESPNOTE ---
Patient states that she is unable to walk at baseline and has been wheelchair bound for months. Patient's spo2 at rest is 96%. Patient able to sit edge of bed with some assistance; lowest spo2 obtained during sit up at 92%. No o2 requirements needed
during exchange. notified.
--- NOTE | 2024-06-08 09:26 | W.PN.HOSP.TC ---
Addendum entered and electronically signed by Sanchez Nesibtt MD 06/11/24 10:25:
Concern for Diastolic Heart Failure
Pneumonia is still a likely, suspected, probable diagnosis
Original Note:
Today's Communication/Plan
-
Discharge today
Assessment / Plan
Assessment / Plan
Physical Exam
General: Not in Acute Distress
HEENT: Normocephalic and Moist mucous membranes
Respiratory: Clear to Auscultation Bilaterally
Cardiac: S1/S2 and Regular Rhythm
GI: Soft, Non Tender and Normal Bowel Sounds
Musculoskeletal: No Cyanosis and No Edema
Skin: Warm and Dry
Neuro: Awake, Alert, AO x 3, Nonfocal/grossly intact (except for bilateral lower extremity weakness (right>left) and RLE numbness: patient stated these neurological findings are chronic since August 2023) and Other (Visual Acuity intact
bilaterally)
Psych: Calm and Intact Judgment/Insight
Assessment/Plan
89 y/o female with past medical history of cerebrovascular accident in August 2023 (with RLE and numbness since then, per patient) -- was hospitalized at [facility], hip fracture s/p surgery (August 2023 -- [facility]),
wheelchair-bound (following CVA in 2023), atrial fibrillation/atrial flutter, UTI in January 2024 (hospitalized at [place]), hypertension, hyperlipidemia, glaucoma, history of blurry vision (with the Metoprolol), osteoarthritis and osteoporosis,
presented with lightheadedness since 06/05/24 morning. Patient said she was feeling lightheaded (near-passing out feeling), and had episodes of lightheadedness with each episode lasting a few minutes. Around that time, she also reported her vision
was getting more blurry; she reported history of glaucoma and having blurry vision with high doses of Metoprolol -- which was reduced in the past to help with the blurry vision. This admission, she said her blurry vision is significantly improved
and she can read and see things fine at the time of admission. Patient also reported chest congestion with mucus feeling in her chest which is improving; she had associated shortness of breath which is improving, per patient.
Near Syncope - RESOLVED
Blurry Vision - RESOLVED
-Possibly due to hypoxia
-Echocardiogram noted
-EKG noted
-Troponins negative so far
-Monitor on telemetry monitoring
-Orthostatic Vital Signs negative
-Discussed on 06/05/24 patient's case with on-call women's basketball coach, Dr. Page, who recommended monitoring the patient's vision for now. no need for urgent intervention or transfer
-Consulted neurology, appreciate their evaluation and recommendations
Acute Hypoxic Respiratory Failure Secondary to CHF vs. Possible Pneumonia -- patient does not use oxygen at home
Recent Chest Congestion and Shortness of Breath - RESOLVED
MRSA positive
-No fever, WBC count
-Received antibiotics in the ER, although no leukocytosis or concern for pneumonia
-Patient denies any signs or symptoms of pneumonia currently
-Continue Cefdinir 300 mg daily (renally-dosed) and Doxycycline 100 mg PO BID for another 4 days -- discussed this with clinical pharmacist Minnie Rey and this regimen is okay to do, appreciate Minnie's help
-ProBNP elevated at 2240
-Stop diuretics as per cardiology (previously: Lasix IV 40 mg BID -- discussed with nephrology, okay to do the Lasix in setting of patient's mild hypernatremia, as long as we do not fluid restrict patient)
-Daily weights, I's and O's
-Cardiology consulted, appreciate their evaluation and recommendations
-Patient stated that she wishes to receive antibiotics and IV fluids this admission if needed
-CT Chest negative for PE, and lower extremity ultrasound is negative for DVT
-Patient does not need home oxygen -- she was saturating in the 90s both on lying down and sitting up
Hypercapnia on Blood Gas Studies
-Consulted pulm, appreciate their evaluation and recommendations
Mild Hypernatremia - RESOLVED
-Sodium 146, patient is eating and drinking now
-Since will do Lasix IV 40 mg BID -- discussed with nephrology, okay to do the Lasix in setting of patient's mild hypernatremia, as long as we do not fluid restrict patient
-Recheck BMP soon outpatient
Cerebrovascular accident in August 2023 (with RLE and numbness since then, per patient) -- was hospitalized at [facility]
Hip fracture s/p surgery (August 2023 -- [facility]), wheelchair-bound (following CVA and hip fracture surgery in 2023)
Atrial fibrillation/atrial flutter - unable to further specify
-Continue home Toprol XL
-Continue Eliquis
UTI in January 2024 (hospitalized at [place])
Penicillin Allergy
Allergy to Sulfamethoxazole-Trimethoprim
Hypertension
-Continue outpatient Amlodipine and Toprol XL
Hyperlipidemia
-Continue outpatient Rosuvastatin
Glaucoma
-Continue outpatient Latanoprost and Timolol
History of blurry vision
-Patient home Metoprolol was reduced in the past to help with this
Osteoarthritis
Osteoporosis
-PT/OT
-Pain management
-Outpatient follow-up with PCP
DVT Prophylaxis: Eliquis
Code Status: DNR
I called patient's nephew, Toni, today. I answered all of his questions and concerns to satisfaction.
More than 30 minutes spent in discharge including
Final examination of the patient
Summarizing hospital stay
Instructions for continuing care to all relevant caregivers
Preparation of discharge records, prescriptions, and referral forms
Total time spent (in minutes): 38
Anticipated Discharge: Today
Subjective/Interval History
-
Date of Service: June 08, 2024
Patient was seen and examined. She reported feeling the same as yesterday, she denied any lightheadedness or blurry vision.
Objective Data
-
Labs:
Laboratory Results
06/08/24
07:36
WBC 7.5
Hgb 11.9 L
Hct 38.7
Plt Count 276
Sodium 139
Potassium 3.9
Chloride 94 L
Carbon Dioxide 34 H
BUN 23 H
Creatinine 0.8
Glucose 90
Calcium 9.5
Vital Signs:
Vital Signs
Temp Pulse Resp BP Pulse Ox
97.6 F 62 16 123/86 99
06/08/24 07:01 06/08/24 07:01 06/08/24 07:01 06/08/24 08:07 06/08/24 07:01
I&O
06/07/24 06/08/24 06/09/24
06:59 06:59 06:59
Intake Total 960 / 960 900 / 900
Balance 960 / 960 900 / 900
--- NOTE | 2024-06-08 10:15 | W.PN.PUL.V3 ---
Today's Communication / Plan
-
antibiotics-finite course
Wean oxygen.
Gentle diuresis.
Outpatient radiographic follow-up
Assessment
-
Patient is an 89-year-old female with previous history of CVA, A-fib/a flutter, UTI, hypertension presenting to ER with lightheadedness x 1 day. She had feeling of lightheadedness with near syncope, with associated changes in vision, shortness
of breath. Chest x-ray demonstrating mild cardiomegaly with right greater than left basilar opacification, proBNP greater than 2000. We are consulted for eval.
Acute hypoxic respiratory failure
Acute heart failure exacerbation
Effusions on the chest x-ray right greater than left
Anemia, hemoglobin 10
Lightheadedness, presyncope
Shortness of breath
Conditions present prior to admission:
Hip fracture status post surgery August 2023 @[facility]
Former smoker
CVA status post right-sided weakness, wheelchair-bound
A-fib/A-flutter
UTI
Plan
Respiratory status continues to be stable
Supplemental oxygen-attempt to wean--On 1 L
She had not been placed on O2 when hospitalized at [facility] for her hip repair..
Mucolytic's.
Nebulizers if needed-currently not bronchospastic
Chest x-ray 06/08/24-stable elevation right hemidiaphragm, bibasilar opacifications, right basilar pneumonia cannot be ruled out
Denies prior history of lung disease, lifelong non-smoker.
Denies family history of lung disease.
CT angiogram 06/07/24-no evidence for pulmonary embolism, small bilateral pleural effusions, bibasilar airspace disease-subsegmental atelectasis or pneumonia, diffuse mosaic pattern, likely reflective of small vessel was small airway disease,
moderate hiatal hernia, mild coronary artery calcifications..
Lower extremity ultrasound 06/07/24-negative for bilateral lower extremity.
Cultures reviewed..
On the produce sputum.
Urine culture no growth.
MRSA screen positive.
Blood cultures negative
Empiric antibiotics-Omnicef and azithromycin-finish finite course
Note:proBNP elevated
Diuresis as tolerated.
Monitor weight, intake, output, renal function, lower extremity edema.
Cardiology following-correspondence reviewed-stopped diuretics-signed off 07/05/24
Echocardiogram 06/07/24-EF 65-70%, severe biatrial enlargement, PA systolic 45-50.
DVT prophylaxis-Eliquis
Repeat imaging in next 24-48 hours following diuresis
Diagnostic Data
Chest X-Ray: 06/05/24- Mild cardiomegaly. Bibasilar opacification, right greater than left at least in part suggesting subsegmental atelectasis and/or pneumonia and possible right greater than left small pleural effusions.
Reports and relevant images were personally reviewed.
Subjective Data
-
Date of Service:
Date of Service: June 08, 2024
Chief Complaint: Pulmonary Follow Up and Dyspnea Follow Up
Subjective:
No complaints of worsening shortness of breath, chest pain or abdominal pain
Review of Systems
General: Other ( per HPI)
Objective Data
Data Reviewed
Vital Signs / I&O:
Vital Signs
Temp Pulse Resp BP Pulse Ox
97.6 F 62 16 123/86 99
06/08/24 07:01 06/08/24 07:01 06/08/24 07:01 06/08/24 08:07 06/08/24 07:01
Intake and Output
06/07/24 06/08/24 06/09/24
06:59 06:59 06:59
Intake Total 960 / 960 900 / 900
Balance 960 / 960 900 / 900
SaO2: 99
Nasal Cannula flow liters per minute: 3
Physical Exam
General: Respiratory Distress (n) and Comfortable
HEENT: Normocephalic, Anicteric and Moist Mucous Membranes
Cardiovascular: Regular Rhythm
Respiratory: Wheeze (n), Crackles, Rhonchi (n), Non-Labored Respirations, Accessory Resp Muscle Use (n) and Stridor (n)
GI: Soft, Non Distended and Non Tender
Neurology: Awake, Alert and No Motor Deficits
Skin: Warm, Good Color, Cyanosis (n), Jaundice (n) and Rash (n)
Labs/Micro/Reports
Lab Data
06/08/24 07:36
06/08/24 07:36
Microbiology
06/05/24 12:19 Blood/Venous Blood Culture - Preliminary
No Growth in 48 hours- Final report to follow
06/05/24 12:19 Blood/Venous Blood Culture - Preliminary
No Growth in 48 hours- Final report to follow
06/06/24 11:35 Urine Urine Culture - Final
No Significant Growth
06/05/24 20:33 Nose MRSA Screen - Final
Staph aureus MRSA
--- NOTE | 2024-06-08 10:30 | CM ---
Chart reviewed and per respiratory, patient has no oxygen requirements at this time, caser shoe parts will follow for updated progress notes for physical therapy. Patient wants to return to [facility], not a skilled facility. sem manager
spoke with Oneida pepe at [facility] and patient is close to baseline, w/c level at facility, and she is agreeable to [facility] visiting nurses. sem manager will send a referral to [facility] through [facility].
Plan; Will follow with patient progress, plan is to return to [facility] when stable with [facility] care.
[facility]
Report Oneida [phone]

[facility]
[2024-06-08] MEDS: ZITHROMAX 500 MG PO (10:56)
[2024-06-08] MEDS: OMNICEF 300 MG PO (10:56)
[2024-06-08 11:05] VITALS: BP 109/61
--- NOTE | 2024-06-08 14:54 | W.DCSUMMARY ---
Discharge Summary
Discharge Data
Date of Admission: 06/05/24
Date of Discharge: 06/08/24
Total time spent discharging patient (in min): 38
-
Pending Results: No
Hospital Course
89 y/o female with past medical history of cerebrovascular accident in August 2023 (with RLE and numbness since then, per patient) -- was hospitalized at [facility], hip fracture status post surgery (August 2023 -- [facility]), wheelchair-bound (following CVA in 2023), atrial fibrillation/atrial flutter, urinary tract infection in January 2024 (hospitalized at [place]), hypertension, hyperlipidemia, glaucoma, history of blurry vision (with the Metoprolol),
osteoarthritis and osteoporosis, presented with lightheadedness. Around that time, she also reported her vision was getting more blurry; she reported history of glaucoma and having blurry vision with high doses of Metoprolol (which was reduced in
the past to help with the blurry vision). After she presented to the emergency room, she reported her blurry vision was significantly improved and she could read and see things fine. Patient also reported chest congestion with mucus feeling in her
chest which she noted as improving; she had associated shortness of breath which was also improving, per patient. She denied any chest pain or fever or any other new symptoms or complaints.
Patient was noted to have Pencillin and Trimethoprim Sulfa allergies, and was therefore given Vancomycin and Aztreonam. Patient's white blood cell count was normal, and she did not have any fever. Patient was started on intravenous Lasix for concern
for heart failure. Cardiology, neurology and pulmonary were consulted. Neurology mentioned that patient's short-lived vision change was most likely secondary to toxic metabolic encephalopathy/hypoxia which was secondary to the patient's newly
discovered pneumonia, hypoxia was also thought to be from heart failure. They recommended against neuroimaging as it was not indicated. I also discussed patient's case with on-call tack maker who recommended monitor patient for now. Pulmonary
mentioned that given patient's wheelchair-bound status, pulmonary embolism was possible, and therefore CT Chest and lower extremity ultrasound were ordered: CT Chest was negative for PE, and lower extremity ultrasound was negative for DVT. Patient
had an echocardiogram, which showed, as per format proofreader's report:
'CONCLUSIONS
Normal biventricular size and systolic function without regional wall motion
abnormality.
Mild concentric left ventricular hypertrophy.
Severe biatrial enlargement.
Mild mitral regurgitation.
Moderate eccentric tricuspid regurgitation.
Estimated PASP 45-50 mmHg and estimated RA 3 mmHg.
No prior study available for comparison.'
Patient had good oxygen saturations on room into the 90s, on the day of discharge. She was stable for discharge with oral antibiotics.
Discharge Plan
-
Patient Disposition: Home with Home Care
Discharge Diagnosis/Procedures: Near Syncope - RESOLVED
Blurry Vision - RESOLVED
Acute Hypoxic Respiratory Failure Secondary to CHF vs. Possible Pneumonia -- patient does not use oxygen at home
Recent Chest Congestion and Shortness of Breath - RESOLVED
MRSA positive
Mild Hypernatremia - RESOLVED
Cerebrovascular accident in August 2023 (with RLE and numbness since then, per patient) -- was hospitalized at [facility]
Hip fracture s/p surgery (August 2023 -- [facility]), wheelchair-bound (following CVA and hip fracture surgery in 2023)
Atrial fibrillation/atrial flutter
UTI in January 2024 (hospitalized at [place])
Penicillin Allergy
Allergy to Sulfamethoxazole-Trimethoprim
Hypertension
Hyperlipidemia
Glaucoma
History of blurry vision
Osteoarthritis
Osteoporosis
Condition: Good
Diet: As tolerated and 2 Gram Sodium
Activity: With assistance
Driving Restrictions: No driving
Referrals:
Venancio Grace DO [Family Provider] - in less than 1 week
Lisandra Rodrigez DO [Active] - in two to three weeks (Hospital Follow-Up, repeat chest x-ray)
Bryce Mcnally MD [Active] - in two to four weeks (Hospital Follow-Up, coronary artery calcifications, heart failure)
Additional Discharge Medication Instructions: Cefdinir, Doxycycline, Guaifenesin are new medications.
Prescriptions:
New
guaifenesin 600 mg Tablet Extended Release 12hr
600 mg PO Q12 Qty: 14 0RF
cefdinir 300 mg Capsule
300 mg PO DAILY 4 Days Qty: 4 0RF
doxycycline monohydrate 100 mg tablet
100 mg PO BID 4 Days Qty: 8 0RF
Continued
metoprolol succinate [Toprol XL] 100 mg Tablet Extended Release 24 Hr
100 mg PO DAILY
latanoprost 0.005 % Drops
1 drp BOTH EYES HS
acetaminophen [Tylenol] 325 mg Tablet
975 mg PO TID
cyanocobalamin (vitamin B-12) 100 mcg Tablet
100 mcg PO DAILY
polyethylene glycol 3350 [Miralax] 17 gram Powder In Packet
17 g PO DAILYPRN PRN (Reason: mild pain)
amlodipine [Norvasc] 5 mg Tablet
5 mg PO DAILY
timolol maleate 0.5 % Drops
1 drp BOTH EYES DAILY
loratadine [Loradamed] 10 mg Tablet
10 mg PO DAILYPRN PRN (Reason: allergies)
rosuvastatin [Crestor] 5 mg Tablet
5 mg PO HS
Eliquis 2.5 mg Tablet
2.5 mg PO BID
Discharge Orders:
Discharge Patient (As Directed); Ordered 06/08/24
Ordered By: Sanchez Nesbitt
Discharge Date and Time
Discharge Date/Time: 06/08/24 18:39
Print Language: DANISH
[2024-06-08 14:56] VITALS: BP 115/70; PULSE 71; O2SAT 93
[2024-06-08 15:09] VITALS: BP 101/74
[2024-06-08] MEDS: VIBRAMYCIN 100 MG PO (15:21)
--- NOTE | 2024-06-09 07:36 | PN.CDI ---
CDI
- -
CDI:
Physician Documentation Request
Admit Date: 06/07/24 08:09
Dear Doctor Laz,
Please review the following and provide your response in the progress notes.
Clinical Indicators:
Pt admitted with acute respiratory failure secondary to CHF vs. possible pneumonia.
06/06 Cardiology: 'Small effusions reported on chest x-ray proBNP a little over 1999. Possible component of acute left heart failure. Will assess response of diuretics already given.'
06/07 Echo: ' Left Ventricle
Normal left ventricular size and systolic function. Mild concentric left
ventricular hypertrophy. No regional wall motion abnormalities are seen. LV
ejection fraction is 65-70% by visual assessment. Stage I diastolic dysfunction
suggestive of abnormal relaxation.'
06/08 Cardiology: 'Possible component of acute left heart failure. Breathing improved will stop diuretics today.'
06/08 Progress Note: 'Acute Hypoxic Respiratory Failure Secondary to CHF vs. Possible Pneumonia...Received antibiotics in the ER, although no leukocytosis or concern for pneumonia
-Patient denies any signs or symptoms of pneumonia currently...ProBNP elevated at 2240
-Stop diuretics as per cardiology (previously: Lasix IV 40 mg BID'
Please provide further specificity regarding the most likely type of CHF you are evaluating, treating or monitoring.
Diastolic Heart Failure
Systolic Heart Failure
Combined Systolic/Diastolic Heart Failure
Other
Use of terms such as suspected, likely, concern for, or probable (associated with a specific diagnosis that is being evaluated, monitored, or treated as if it exists) are acceptable and can be coded in the inpatient setting, when documented at the
time of discharge.
Thank you,
Jennifer Butts RN, BSN
CDI Specialist
Available via [place] [employer]
Please use your independent medical judgment in providing your response.
--- NOTE | 2024-06-09 08:31 | PN.CDI ---
CDI
- -
CDI:
Physician Documentation Request
Admit Date: 06/07/24 08:09
Dear Doctor Laz,
Please review the following and provide your response in the progress notes.
Clinical Indicators:
The diagnosis of possible pneumonia was documented.
Pt admitted with Blurry vision and Acute Hypoxic Respiratory Failure Secondary to CHF vs. Possible Pneumonia
06/08 Progress note: '-Received antibiotics in the ER, although no leukocytosis or concern for pneumonia
-Patient denies any signs or symptoms of pneumonia currently.Continue Cefdinir 300 mg daily (renally-dosed) and Doxycycline 100 mg PO BID for another 4 days
Please clarify the following:
Pneumonia was present on admission and is now resolved.
Pneumonia was ruled out
Pneumonia is still a likely, suspected, probable diagnosis
Other
Use of terms such as suspected, likely, concern for, or probable (associated with a specific diagnosis that is being evaluated, monitored, or treated as if it exists) are acceptable and can be coded in the inpatient setting, when documented at the
time of discharge.
Thank you,
Jennifer Butts RN, BSN
CDI Specialist
Available via [place] [employer]
Please use your independent medical judgment in providing your response.
== END 2024-06-08 18:39 | disposition home health service (06) | DRG 193 ==
LOC: 4 WEST ACU 08:09
PROVIDERS: ADMITTING PHYSICIAN Hospitalist; CONSULT PHYSICIAN Internal Medicine; CONSULT PHYSICIAN Internal Medicine Cardiovascular Disease; CONSULT PHYSICIAN Psychiatry & Neurology Neurology; EMERGENCY PHYSICIAN Student in an Organized Health Care Education/Training Program; FAMILY PHYSICIAN Internal Medicine
DX: J18.9 Pneumonia, unspecified organism (principal); G92.8 Other toxic encephalopathy; J96.01 Acute respiratory failure with hypoxia; I50.31 Acute diastolic (congestive) heart failure; E87.0 Hyperosmolality and hypernatremia; I48.92 Unspecified atrial flutter; I69.351 Hemiplegia and hemiparesis following cerebral infarction affecting right dominant side; I11.0 Hypertensive heart disease with heart failure; H53.8 Other visual disturbances; E78.00 Pure hypercholesterolemia, unspecified; H40.9 Unspecified glaucoma; D64.9 Anemia, unspecified; I48.91 Unspecified atrial fibrillation; M19.90 Unspecified osteoarthritis, unspecified site; M81.0 Age-related osteoporosis without current pathological fracture; Z66 Do not resuscitate; Z87.891 Personal history of nicotine dependence; Z79.01 Long term (current) use of anticoagulants; Z88.0 Allergy status to penicillin; Z88.1 Allergy status to other antibiotic agents; Z88.3 Allergy status to other anti-infective agents; Z87.440 Personal history of urinary (tract) infections; Z99.3 Dependence on wheelchair
CPT/HCPCS: 36600; 71046; 71275; 80048; 80053; 81003; 81015; 82805; 83735; 83880; 84484; 85025; 87040; 87070; 87086; 87147; 93005; 93306; 93970; 96374; 96375; 97110; 97162; 97166; 99285; Q9967

== ENCOUNTER 2024-08-02 13:00 | Inpatient (IN) | payer MEDICARE, SELFPAY ==
[2024-08-02] VITALS (9 sets, daily range): BP systolic 119–145; BP diastolic 74–96; BMI 22.9; BMI 23.1
[2024-08-02 10:54] LABS: % Basophils 0.8 % (0-2); % Eosinophils 0.6 % (0-6); % Immature Granulocytes 0.5 % (0-0.5); % Lymphocytes 6.8 % (20.5-51.1); % Monocytes 6.4 % (1.7-9.3); % Neutrophils 84.9 % (42.2-75.2); Absolute Basophils 0.1 10^3/uL (0-0.2); Absolute Eosinophils 0.1 10^3/uL (0-0.7); Absolute Immature Granulocytes 0.1 10^3/uL (0-0.05); Absolute Lymphocytes 0.7 10^3/uL (1.2-3.4); Absolute Monocytes 0.7 10^3/uL (0.1-0.6); Absolute Neutrophils 8.8 10^3/uL (1.4-6.5); Hematocrit 38.3 % (37.0-47.0); Hemoglobin 11.3 g/dL (12.0-16.0); Mean Corp Hgb Conc. 29.5 g/dL (33.0-37.0); Mean Corpuscular Hgb 27.4 pg (27.0-31.0); Mean Corpuscular Volume 92.7 fL (81.0-99.0); Mean Platelet Volume 9.1 fL (7.4-10.4); Nucleated Red Blood Cells % 0.2 %; Platelet Count 469 10^3/uL (130-400); Red Blood Cell Count 4.13 10^6/uL (4.20-5.40); Red Cell Dist. Width 14.8 % (11.5-14.5); White Blood Cell Count 10.4 10^3/uL (4.8-10.8)
--- NOTE | 2024-08-02 10:56 | ED.GENMED ---
History of Present Illness
General
Chief Complaint: Breathing Problem
Source: patient and records
Time Seen by Provider: 08/02/24 10:46
History of Present Illness
History of Present Illness:
89-year-old female sent for shortness of breath and low oxygen levels. Started yesterday. Normally not on supplemental oxygen. Was placed on 3 L. O2 sat requirements have increased in the last 24 hours. Denies chest pain cough fever or other
complaints. Recent admission for hypoxia possible pneumonia versus CHF.
Past History
Past History
ED Past Medical History: Arrthythmia, CVA and HTN
ED Past Surgical History: None
Social History
Tobacco: Non-smoker
Alcohol: None
Review of Systems
Review of Systems
All Other Systems: Not applicable
Constitutional: Denies fever
Cardiac: Denies chest pain or syncope
ABD/GI: Denies abdominal pain
Phy Exam
Physical Exam
Physical Exam:
GENERAL: Alert. Elderly and frail. Nontoxic. However fully alert and able to speak with mild tachypnea with speaking
EYE: Orbits normal.
NECK: Supple, no significant adenopathy.
ENT: Pharynx without erythema
CARDIAC: Regular rate and rhythm without any obvious murmurs.
LUNGS: Mild tachypnea with dry rales two thirds the way up bilaterally
ABDOMEN: Soft, without focal tenderness or distention
NEUROLOGICAL: Alert and oriented , grossly non-focal
SKIN: Warm and dry, no rash or lesion, no discoloration, skin intact.
MUSCULOSKELETAL: No edema,no deformity.Good color
PSYCH: Normal and appropriate interaction.
Scores
Heart Failure Risk
Heart Failure Risk Score: Yes
History of Stroke or TIA: No
History of intubation for respiratory distress: No
Heart rate on ED arrival >/= 110: Yes
SaO2 <90% on arrival on room air: Yes
HR >/=110 during 3min walk test (or too ill to perform test): Yes
ECG has acute ischemic changes: No
Urea >/=12mmol/L (BUN 33.6mg/dL): No
Serum CO2>/=35mmol/L: No
Troponin I or T elevated to OR Level (0.4mg/dL): No
NT-proBNP >/=5,000ng/L (5,000pg/ml): Yes
HF Risk Score: 4
Admission Status: HIGH RISK 26.1% Consider SNF treatment or admission to hospital
Course
Orders/Labs/Results
Orders:
Orders
08/02/24
NT-proBNP Urgent
Comment: ADD ON
Troponin I Urgent
08/02/24 10:43
CMP [Comprehensive Metabolic Panel] Urgent
COVID-19 Antigen Urgent
Source: Nasal Swab
Complete Blood Count/With Diff Urgent
Influenza A+B Rapid Molecular Urgent
CHARLES Source: Nasal Swab
Specimen Description:
08/02/24 10:55
Add On- LAB Urgent
Tests Added?: probnp
EKG [Electrocardiogram (*1)] Urgent
Reason for Study: Shortness of Breath
CXR Port [CR Chest Portable - 1 View] Urgent
Comment:
Reason For Exam: Short of breath/hypoxia
Reason Study Needs to be Portable: Patient Unstable
08/02/24 10:56
EKG- Treatment ONCE
08/02/24 12:02
Furosemide [Lasix] 40 mg IV ONCE ONE
08/02/24 12:22
Admit/Transfer Patient As Directed
Co-Sign Provider:
Level of Care: Inpatient admission
Assign to:: Telemetry
Physician / Group: Gary
Diagnosis: Heart Failure
Reason for Telemetry: Acute Heart Failure
Date to Stop Telemetry: 08/05/24
Time to Stop Telemetry: 11:00
Reason for Hospitalization: IV diuretics
Expected length of stay greater than two midnights?: Yes
ELOS- Estimated Length of Stay in days: 3
I certify the patient meets the requirements for IP care: Yes
PRN Pain Medication Management As Directed
May give lesser potent ordered pain med per pt: Yes
preference::
Protocol:: Medication orders for pain may be administered in a
manner that supports deferring to patient preference
when the pt is:
- Requesting an ordered lesser potent pain medication.
Least to most potent pain medications are defined
as: acetaminophen < NSAID < tramadol < opioids
(morphine, oxycodone, hydromorphone).
- Requesting a lesser dose of the same medication IF
ORDERED.
- Requesting a less intrusive route of administration
if both routes are prescribed by the provider (PO <
IV).
08/02/24 12:25
Code Status As Directed
Resuscitation Status: Do not resuscitate
Reached after discussion with pt or family/Healthcare POA: Yes
DNR Bracelet Application ONCE
08/05/24 11:00
DC Protocol for Telemetry ONCE
Abnormal Lab Results
08/02/24
10:43
RBC 4.13 L 10^6/uL
(4.20-5.40)
Hgb 11.3 L g/dL
(12.0-16.0)
MCHC 29.5 L g/dL
(33.0-37.0)
RDW 14.8 H %
(11.5-14.5)
Plt Count 469 H 10^3/uL
(130-400)
Abs Immat Gran (auto) 0.1 H 10^3/uL
(0-0.05)
Absolute Neuts (auto) 8.8 H 10^3/uL
(1.4-6.5)
Absolute Lymphs (auto) 0.7 L 10^3/uL
(1.2-3.4)
Absolute Monos (auto) 0.7 H 10^3/uL
(0.1-0.6)
Neutrophils % 84.9 H %
(42.2-75.2)
Lymphocytes % 6.8 L %
(20.5-51.1)
BUN 24 H mg/dl
(7-17)
Glucose 142 H mg/dl
(70-99)
Alkaline Phosphatase 142 H U/L
(38-126)
08/02/24 10:43
08/02/24 10:43
Vital Signs
Initial and Last Documented VS:
Initial Vital Signs
Temp Pulse Resp BP Pulse Ox
97.9 F 71 32 132/81 93
08/02/24 10:30 08/02/24 10:30 08/02/24 10:30 08/02/24 10:30 08/02/24 10:30
Last Documented Vital Signs
Temp Pulse Resp BP Pulse Ox
97.9 F 74 33 140/91 91
08/02/24 10:30 08/02/24 14:01 08/02/24 14:01 08/02/24 14:01 08/02/24 14:01
MDM/Problems Addressed
Differential Diagnosis Includes:
Patient presents hypoxic requiring significant oxygen demands. Crackles generally throughout the lung. Primary respiratory versus CHF. Recent admission sounds fairly similar. Workup in progress. Differential would include cardiac etiology
versus infectious.
*Radiology
Radiology exam reviewed: preliminary read by ED provider (CHF) and radiology read reviewed
*Pulse Oximetry
Patient hypoxic: yes
*EKG
Interpreted by ED Provider?: Yes
Interpretation: abnormal
Comparison EKG: changes noted
Heart Rate: 70
Rate: normal
Rhythm: sinus
[place]: normal axis
Interval: normal interval
QRS Pattern: normal QRS
Ischemia: non-specific ST changes
*Shirrer Interpretation
Rate: normal
Interpretation: normal
Heart Rate: 72
Rhythm: sinus
*Critical Care Note
Total Time (30-74mins, 75-104mins- exclusive of procedures): Not Applicable
Data Reviewed
Review of Other/Old Records Reveals: Labs, Records, Radiology Studies, Testing and Discharge Summary
Update Note
Update Note:
More suspicious of CHF. Admission for further care.
ED Attending Note
-
Portions of this chart may have been created with voice recognition software.� Occasional wrong word or��sound alike� substitutions may have occurred due to the inherent limitations of voice recognition software.
Discharge Plan
Departure
Patient Disposition: Admit
Date of Disposition: 08/02/24
Time of Disposition: 12:03
Presentation/result/management discussed w/ accepting MD/DO: Hospitalist
Discharge Problem:
Respiratory distress/CHF
Interventions
Interventions:
*Risk Screen - Suicide Last Done: 08/02/24 10:41
*General Assessment Last Done: 08/02/24 10:39
*Neglect/Abuse Screening Last Done: 08/02/24 10:39
ED- Fall Risk Assessment Last Done: 08/02/24 10:41
*ED COVID-19 Vaccine History Last Done: 08/02/24 10:38
ED- Cardiac Assessment Last Done: 08/02/24 10:41
ED- Pulmonary Assessment Last Done: 08/02/24 10:41
[2024-08-02 11:09] LABS: COVID-19 Antigen Negative (Negative)
[2024-08-02 11:29] LABS: ALT (SGPT) 10 U/L (0-35); AST (SGOT) 19 U/L (14-36); Alkaline Phosphatase 142 U/L (38-126); Blood Urea Nitrogen 24 mg/dl (7-17); Calcium 9.6 mg/dl (8.4-10.2); Carbon Dioxide 26 mmol/L (22-30); Chloride 103 mmol/L (98-107); Estimated Creatinine Clearance 36 ml/min; Glucose 142 mg/dl (70-99); Potassium 4.3 mmol/L (3.5-5.1); Sodium 141 mmol/L (135-145); Total Bilirubin 0.5 mg/dl (0.2-1.3); Total Protein 7.6 g/dl (6.3-8.2); eGFR > 60.00
[2024-08-02 11:45] LABS: NT-proBNP 6930 pg/ml; Troponin I < 0.012 ng/ml
[2024-08-02] MEDS: LASIX 40 MG IV (12:12)
--- NOTE | 2024-08-02 12:28 | HPS.HSE ---
Family Physician
-
Family Physician: Venancio Grace
Chief Complaint
-
Shortness of Breath
History of Present Illness
Patient is an 89-year-old female past medical history of CVA with residual right-sided weakness, paroxysmal atrial fibrillation/flutter and hypertension who presents with shortness of breath and hypoxia. Patient was noted to be significant hypoxic
at her assisted living facility today. Patient reports increasing shortness of breath about the last 2 to 3 days. This has been associated with cough which describes is mostly dry. She denies any lower extremity edema. She does not weigh herself
on a regular basis. Review of records indicate patient has gained about 5 pounds since her last admission in June 2024. She denies fever, sweats or chills.
Medical History
Past Medical History
Past Medical History: Reports Other
Additional Past Medical History:
CVA with Residual Right Hemiparesis (Aug 2023)
Paroxysmal Atrial Fibrillation/Flutter
Essential Hypertension
Hyperlipidemia
Glaucoma
Osteoarthritis
Osteoporosis
Past Surgical History: Reports Other
Additional Past Surgical History:
Hip Fracture Repair (Aug 2023)
Social History
Tobacco: Former Smoker
Living: Assisted Living
Family History
Family History: Other (Father: Cardiac Disease)
Allergies / Home Medications
Allergies reflects when Allergies were last updated in [facility].
Home Medications with original date entered in [facility]
Allergy/Medication List:
Allergies
Allergy/AdvReac Type Severity Reaction Status Date / Time
Penicillins Allergy Unknown Verified 08/02/24 11:07
sulfamethazine Allergy Unknown Verified 08/02/24 11:07
trimethoprim Allergy Unknown Verified 08/02/24 11:07
Home Medications
acetaminophen 325 mg tablet (Tylenol) 975 mg PO TID Pain 06/05/24
amlodipine 5 mg tablet (Norvasc) 5 mg PO DAILY Blood Pressure 06/05/24
apixaban 2.5 mg tablet (Eliquis) 2.5 mg PO BID Blood Clot Prevention/Tx 06/05/24
cyanocobalamin (vitamin B-12) 100 mcg tablet 100 mcg PO DAILY Smoking Cessation 06/05/24
latanoprost 0.005 % eye drops 1 drp BOTH EYES HS Eye Condition 06/05/24
loratadine 10 mg tablet (Loradamed) 10 mg PO DAILYPRN PRN allergies 06/05/24
metoprolol succinate 100 mg tablet,extended release 24 hr (Toprol XL) 100 mg PO DAILY Heart Disease/Condition 06/05/24
polyethylene glycol 3350 17 gram oral powder packet (Miralax) 17 g PO DAILYPRN PRN mild pain 06/05/24
rosuvastatin 5 mg tablet (Crestor) 5 mg PO HS High Cholesterol 06/05/24
timolol maleate 0.5 % eye drops 1 drp BOTH EYES DAILY Eye Condition 06/05/24
guaifenesin 600 mg tablet, extended release 12 hr 600 mg PO [id number] PRN cough 08/02/24
lidocaine 4 % topical patch 1 patch topical DAILY right knee 08/02/24
loperamide 2 mg tablet 2 mg PO DAILYPRN PRN diarrhea 08/02/24
Review of Systems
-
A 12 point ROS was completed and negative except as noted: Yes
Constitutional: Denies Fever or Chills
Respiratory: Reports Trouble Breathing; Denies Cough
Cardiac: Denies Chest Pain or Palpitations
Physical Exam
Vital Signs
Vital Signs
Temp Pulse Resp BP Pulse Ox
97.9 F 72 30 137/74 95
08/02/24 10:30 08/02/24 12:12 08/02/24 11:30 08/02/24 12:12 08/02/24 11:30
Physical Exam
General: Comfortable and Conversant
HEENT: Anicteric, Moist mucous membranes and Oxygen (Nasal Canula )
Respiratory: Rales (Diffuse) and Non Labored Respirations
Cardiac: S1/S2, Regular Rhythm and Murmur (3/6 Systolic Murmur heart best at right lower sternal border)
GI: Soft and Non Tender
Rectal: Deferred by Provider
Musculoskeletal: No Clubbing, No Cyanosis and No Edema
Skin: Warm and Dry
Neuro: Awake, Alert, Oriented and Nonfocal/grossly intact
Psych: Calm
Laboratory Results
-
08/02/24 10:43
08/02/24 10:43
Laboratory Results
Total Bilirubin 0.5 mg/dl (0.2-1.3) 08/02/24 10:43
AST 19 U/L (14-36) 08/02/24 10:43
ALT 10 U/L (0-35) 08/02/24 10:43
Alkaline Phosphatase 142 U/L (38-126) H 08/02/24 10:43
Troponin I < 0.012 ng/ml 08/02/24 Unknown
Data Reviewed
-
Diagnostic Radiology: Image Personally Visualized and interpreted (CXR )
Lab Data: Labs Reviewed by me
Impression/Plan
-
Acute Hypoxic Respiratory Failure secondary to Acute Heart Failure
-Continue supplemental
-Titer oxygen as able to keep pulse ox between 88-90%
Acute Diastolic Heart Failure
-Echo Jun 2024: Normal biventricular size and systolic function without regional wall motion abnormality. Mild concentric left ventricular hypertrophy. Stage I diastolic dysfunction. Mild mitral regurgitation.
-Consult Cardiology
-Continue Lasix 40mg IV Daily
-Monitor Is&Os and Daily Weights
CVA with Residual Right Hemiparesis (Aug 2023)
-Patient is wheelchair bound and requires two person lift for transfer
Paroxysmal Atrial Fibrillation/Flutter
-Continue Eliquis for anticoagulation
-Continue Metoprolol for rate/rhythm control
Essential Hypertension
-Continue amlodipine and metoprolol with hold parameters
Hyperlipidemia
-Continue Crestor
Glaucoma
-Continue latanoprost and timolol drops
DVT proph: Eliquis
Code Status: DNR
--- NOTE | 2024-08-02 12:57 | W.PN.UPDATE ---
Update Note
Progress Note Update
This is an addendum to the H&P written by Elke Ingram on 08/02/2024.� Patient seen and examined independently with PA.
89-year-old female past medical history of atrial fibrillation/flutter on Eliquis, hypertension, osteoarthritis, osteoporosis, glaucoma, CVA in 2023, presenting with hypoxemia and shortness of breath.� On 6 L currently.
COVID influenza negative.� Chest x-ray shows mild pulm edema.� Cardiac BNP of 7000.� Recent echo shows mild concentric LVH, severe biatrial enlargement, moderate eccentric tricuspid regurgitation.�
Present consistent with acute hypoxemic respiratory failure secondary to CHF exacerbation.� IV Lasix.� Cardiology consulted.
--- NOTE | 2024-08-02 14:15 | CON.CAR ---
Consultation
Consultation Request
Date/Time Consultation Requested: 08/02/24 1p
Date/Time Consultation Performed: 08/02/24 2p
Requesting Provider: Elke Garcia PA-C
Performing Provider: KEELEY Munroe for Dr. Mcnally
Reason for Consultation: sob
Medical History
-
Chief Complaint: sob
History of Present Illness:
Miss Richardson is an 89 yo female with HFpEF, CVA (RLE weakness wheelchair bound), Afib/Aflutter on Eliquis, HTN and HLD, who presents to the ER with c/o SOB for several days. She admits to a nonproductive cough as well. CXR with mild CHF, small
b/l pleural effusions and proBNP 6930. She is admitted to the hospitalist service and we are consulted for acute HFpEF. She was admitted at last month for acute HFpEF and was not sent home on diuretics.
Past Medical History
Past Medical History: Other (as above)
Past Surgical History: Orthopedic (hip fx 08/2023)
Social History
Tobacco: Former Smoker (quit in 1965)
Alcohol: None
Personal: Single
Living: Jail ([facility] in [place])
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
Family History
Family History: Reviewed & Not Pertinent
Allergies / Home Medications
Allergy/AdvReac Type Severity Reaction Status Date / Time
Penicillins Allergy Unknown Verified 08/02/24 11:07
sulfamethazine Allergy Unknown Verified 08/02/24 11:07
trimethoprim Allergy Unknown Verified 08/02/24 11:07
�Medication �Instructions �Recorded �Confirmed �Type
acetaminophen 325 mg tablet 975 mg PO TID Pain 06/05/24 08/02/24 History
(Tylenol)
amlodipine 5 mg tablet (Norvasc) 5 mg PO DAILY Blood Pressure 06/05/24 08/02/24 History
apixaban 2.5 mg tablet (Eliquis) 2.5 mg PO BID Blood Clot 06/05/24 08/02/24 History
Prevention/Tx
cyanocobalamin (vitamin B-12) 100 100 mcg PO DAILY Smoking Cessation 06/05/24 08/02/24 History
mcg tablet
latanoprost 0.005 % eye drops 1 drp BOTH EYES HS Eye Condition 06/05/24 08/02/24 History
loratadine 10 mg tablet (Loradamed) 10 mg PO DAILYPRN PRN allergies 06/05/24 08/02/24 History
metoprolol succinate 100 mg 100 mg PO DAILY Heart 06/05/24 08/02/24 History
tablet,extended release 24 hr Disease/Condition
(Toprol XL)
polyethylene glycol 3350 17 gram 17 g PO DAILYPRN PRN mild pain 06/05/24 08/02/24 History
oral powder packet (Miralax)
rosuvastatin 5 mg tablet (Crestor) 5 mg PO HS High Cholesterol 06/05/24 08/02/24 History
timolol maleate 0.5 % eye drops 1 drp BOTH EYES DAILY Eye Condition 06/05/24 08/02/24 History
guaifenesin 600 mg tablet, 600 mg PO [id number] PRN cough 08/02/24 08/02/24 History
extended release 12 hr
lidocaine 4 % topical patch 1 patch topical DAILY right knee 08/02/24 08/02/24 History
loperamide 2 mg tablet 2 mg PO DAILYPRN PRN diarrhea 08/02/24 08/02/24 History
Review of Systems
-
All other systems: Negative unless noted
Constitutional: No Symptoms
Physical Exam
Vital Signs
Temp Pulse Resp BP Pulse Ox
97.9 F 74 33 140/91 91
08/02/24 10:30 08/02/24 14:01 08/02/24 14:01 08/02/24 14:01 08/02/24 14:01
Lab Results
08/02/24 10:43
08/02/24 10:43
Troponin I < 0.012 ng/ml 08/02/24 Unknown
Hvc-D-Mqtsnlcpyjw Pept 6930 pg/ml 08/02/24 Unknown
Physical Exam
General: No Apparent Distress and Other (elderly, frail)
HEENT: Normocephalic and Anicteric
Respiratory: Crackles (bibasilar) and Other (mild respiratory distress after talking, wearing NC oxygen)
Cardiac: S1/S2 and Regular Rhythm
Breast: Deferred by me
GI: Soft, Non Tender, Non Distended and Normal Bowel Sounds
Rectal: Deferred by Provider
Musculoskeletal: No Clubbing, No Cyanosis and No Edema
Skin: Warm and Dry
Neuro: AO x 3
Hematologic/Lymphatic: No Lymphadenopathy
Psych: Calm
Impression / Plan
-
HFpEF - acute on chronic.
- agree with diuresis.
- daily weights, I&Os, fluid/sodium restrictions.
- monitor BP and renal labs.
- echo 06/07/24 with EF 65-70%, mild MR, mod TR.
Afib/Aflutter - stable in NSR.
- OAC with Eliquis 2.5mg BID.
HTN - stable on Toprol, Amlodipine.
- continue.
HLD - stable on Crestor, continue.
CVA - stable.
- residual RLE weakness, wheelchair bound.
Data Reviewed
-
EKG: Tracing Personally Visualized and interpreted (NSR 70 bpm.)
Radiology: Report Reviewed by me (CXR: mild CHF, small b/l pleural effusions)
Medical Tests (Nuc Med, Echo etc): Report Reviewed by me (echo 06/07/24: normal biventricular size/function, no RWMA, EF 65-70%, mild cLVH, severe biatrial enlargement, mild MR, moderate TR, PASP 45-50mmHg.)
Labs: Labs Reviewed by me
Old Records: Reviewed
--- NOTE | 2024-08-02 16:30 | PTCARENOTE ---
Addendum entered by Lorin Heart RN 08/02/24 19:12:
Received patient from ED (brought by EMS from [facility]). Patient here with CHF Exacerbation, received IV Lasix. AAOX2-3, pleasant and cooperative. CHINIK. Prior CVA, with R-Sided Weakness. Presently on 6L Humidified NC, Crackles in R
Base/Diminished throughout. Tachypneic effort, however patient reports feeling much better. Purewick placed for accurate outputs, patient incontinent at baseline. Oriented to unit, call jacinto and remote.
Original Note:
Received patient from ED. Patient here with CHF Exacerbation, received IV Lasix. AAOX2-3, pleasant and cooperative. CHINIK. Prior CVA, with R-Sided Weakness. Presently on 6L Humidified NC, Crackles in R Base/Diminished throughout. Tachypneic effort,
however patient reports feeling much better. Purewick placed for accurate outputs, patient incontinent at baseline. Oriented to unit, call jacinto and remote.
[2024-08-02] MEDS: TYLENOL 975 MG PO ×2 (17:49→21:12)
[2024-08-02] MEDS: ELIQUIS 2.5 MG PO (20:12)
[2024-08-02] MEDS: XALATAN OPHTHALMIC SOLUTION 1 DROP BOTH EYES (21:12)
[2024-08-02] MEDS: CRESTOR 5 MG PO (21:12)
[2024-08-03 03:30] VITALS: BP 123/69
[2024-08-03 06:00] VITALS: BMI 23.0
--- NOTE | 2024-08-03 07:49 | W.PN.HOSP.TC ---
Today's Communication/Plan
-
Continue IV diuresis
Assessment / Plan
Assessment / Plan
Physical Exam
General: Comfortable and Conversant
HEENT: Anicteric, Moist mucous membranes and Oxygen (Nasal Canula )
Respiratory: Rales (Diffuse) and Non Labored Respirations
Cardiac: S1/S2, Regular Rhythm and Murmur (3/6 Systolic Murmur heart best at right lower sternal border)
GI: Soft and Non Tender. Positive bowel sounds.
Musculoskeletal: No Cyanosis and No Edema
Skin: Warm and Dry
Neuro: Awake, Alert, Oriented and Nonfocal/grossly intact
Psych: Calm
Assessment/Plan
89-year-old female past medical history of atrial fibrillation/flutter on Eliquis, hypertension, osteoarthritis, osteoporosis, glaucoma, CVA in 2023, presenting with hypoxemia and shortness of breath. On 6 L currently. COVID influenza negative.
Chest x-ray shows mild pulm edema. Cardiac BNP of 7000. Recent echo shows mild concentric LVH, severe biatrial enlargement, moderate eccentric tricuspid regurgitation. Present consistent with acute hypoxemic respiratory failure secondary to CHF
exacerbation. IV Lasix. Cardiology consulted at the time of admission.
Acute Hypoxic Respiratory Failure secondary to Acute Heart Failure
-Continue supplemental
-Titer oxygen as able to keep pulse ox between 88-90%
Acute Diastolic Heart Failure
-Echo Jun 2024: Normal biventricular size and systolic function without regional wall motion abnormality. Mild concentric left ventricular hypertrophy. Stage I diastolic dysfunction. Mild mitral regurgitation.
-Consult Cardiology
-Continue Lasix 40mg IV Daily
-Monitor Is&Os and Daily Weights
-Farxiga cost being evaluated
CVA with Residual Right Hemiparesis (Aug 2023)
-Patient is wheelchair bound and requires two person lift for transfer
Paroxysmal Atrial Fibrillation/Flutter
-Continue Eliquis for anticoagulation
-Continue Metoprolol for rate/rhythm control
Essential Hypertension
-Continue amlodipine and metoprolol with hold parameters
Hyperlipidemia
-Continue Crestor
Glaucoma
-Continue latanoprost and timolol drops
DVT proph: Eliquis
Code Status: DNR
Anticipated Discharge: 24 - 48 hours
Subjective/Interval History
-
Date of Service: August 03, 2024
Patient was seen and examined. She reported she is feeling '100% better.'
Objective Data
-
Labs:
Laboratory Results
08/03/24
07:48
WBC Pending
Hgb Pending
Hct Pending
Plt Count Pending
Sodium Pending
Potassium Pending
Chloride Pending
Carbon Dioxide Pending
BUN Pending
Creatinine Pending
Glucose Pending
Calcium Pending
Vital Signs:
Vital Signs
Temp Pulse Resp BP Pulse Ox
97.4 F 73 16 123/69 95
08/03/24 03:30 08/03/24 03:30 08/03/24 03:30 08/03/24 03:30 08/03/24 03:30
I&O
08/02/24 08/03/24 08/04/24
06:59 06:59 06:59
Intake Total 240 / 240
Output Total 100 / 100
Balance 140 / 140
--- NOTE | 2024-08-03 07:55 | W.PN.CD ---
Today's Communication / Plan
-
still on 4-5 liters. feels better
continue diuresis and monitor renal function
wean O2 as tolerated
Check cost for Derrick ( case management consulted)
Impression / Plan
-
HFpEF - acute on chronic.
- agree with diuresis.
- daily weights, I&Os, fluid/sodium restrictions.
- monitor BP and renal labs.
- echo 06/07/24 with EF 65-70%, mild MR, mod TR.
Afib/Aflutter - stable in NSR.
- OAC with Eliquis 2.5mg BID.
HTN - stable
HLD - stable on Crestor, continue.
CVA - stable.
- residual RLE weakness, wheelchair bound.
ECHO 06/07/24
Normal biventricular size and systolic function without regional wall motion
abnormality.
Mild concentric left ventricular hypertrophy.
Severe biatrial enlargement.
Mild mitral regurgitation.
Moderate eccentric tricuspid regurgitation.
Estimated PASP 45-50 mmHg and estimated RA 3 mmHg.
Physical Exam
Vital Signs/Labs
Vital Signs
Temp Pulse Resp BP Pulse Ox
97.4 F 73 16 123/69 95
08/03/24 03:30 08/03/24 03:30 08/03/24 03:30 08/03/24 03:30 08/03/24 03:30
08/02/24 08/03/24 08/04/24
06:59 06:59 06:59
Actual Weight 46.522 kg
08/02/24
Unknown
Xsf-F-Egobryzmrih Pept 6930
LAB Results
08/02/24
Unknown
Troponin I < 0.012
Physical Exam
Constitutional: No acute distress
Cardiovascular: Rhythm & rate is regular
Respiratory: Other (decreaed at bases rarecrackles. No wheeze)
GI: Soft
Neuro/Psych: Alert
Data Reviewed
-
Date of Service: August 03, 2024
[2024-08-03 07:57] VITALS: BP 140/83
[2024-08-03 08:56] LABS: Blood Urea Nitrogen 23 mg/dl (7-17); Calcium 9.2 mg/dl (8.4-10.2); Carbon Dioxide 26 mmol/L (22-30); Chloride 104 mmol/L (98-107); Estimated Creatinine Clearance 36 ml/min; Glucose 95 mg/dl (70-99); Magnesium 2.1 mg/dl (1.6-2.3); Potassium 4.6 mmol/L (3.5-5.1); Sodium 144 mmol/L (135-145); eGFR > 60.00
[2024-08-03 09:11] LABS: Hematocrit 40.3 % (37.0-47.0); Hemoglobin 12.5 g/dL (12.0-16.0); Mean Corpuscular Hgb 27.6 pg (27.0-31.0); Mean Platelet Volume 9.9 fL (7.4-10.4); Platelet Count 340 10^3/uL (130-400); Red Blood Cell Count 4.53 10^6/uL (4.20-5.40); Red Cell Dist. Width 14.8 % (11.5-14.5); White Blood Cell Count 7.2 10^3/uL (4.8-10.8)
[2024-08-03] MEDS: LIDOCAINE 4% PATCH 1 PATCH TOPICAL (09:26)
[2024-08-03] MEDS: TYLENOL 975 MG PO ×3 (09:27→21:01)
[2024-08-03] MEDS: ELIQUIS 2.5 MG PO ×2 (09:27→20:05)
[2024-08-03] MEDS: TOPROL XL 100 MG PO (09:27)
[2024-08-03] MEDS: NORVASC 5 MG PO (09:27)
[2024-08-03] MEDS: LASIX 40 MG IV (09:27)
[2024-08-03] MEDS: TIMOPTIC 0.5% OPHTHALMIC SOLUTION 1 DROP BOTH EYES (09:28)
[2024-08-03 11:35] VITALS: BP 124/61
--- NOTE | 2024-08-03 14:46 | CM ---
Addendum entered by Vero Bravo 08/03/24 16:03:
CM received call from [facility], cost for Farxiga (generic $115, brand $125). Pharmacist reports patients prescription plan is documented as [facility], BIN# [id number], PCN: [id number], group# [id number].
Original Note:
CM reviewed chart, received consult for cost of Farxiga, 10 mg. Phone call to patients pharmacy, need script sent over in order to confirm cost, TT to Hospitalist. Attempted to call [facility], informed patient no longer active, call to [facility], informed patient is not active, call to [facility] as that is prescription plan per ambulatory orders, informed patient is not active. VM left for patients pharmacy to confirm prescription plan. CM spoke with patients nurse at [facility] ,
Amrita. Per nurse, patient is an assist of two, full care, patient does do chair exercises and has worked with [facility] in past. Patient PCP Venancio Grace, pharmacy [facility]. Patient currently on O2. CM will continue to follow for all discharge
planning needs.
Plan; return to [facility] when stable, watch for O2 needs, awaiting call from pharmacy for cost of Farxiga.
[2024-08-03 15:39] VITALS: BP 120/69
[2024-08-03 19:26] VITALS: BP 108/66
[2024-08-03] MEDS: CRESTOR 5 MG PO (21:01)
[2024-08-03] MEDS: XALATAN OPHTHALMIC SOLUTION 1 DROP BOTH EYES (21:01)
[2024-08-03 23:41] VITALS: BP 99/63
[2024-08-04] VITALS (8 sets, daily range): BP systolic 96–157; BP diastolic 59–88; PULSE 73; O2SAT 92; BMI 22.0
[2024-08-04] MEDS: LIDOCAINE 4% PATCH 1 PATCH TOPICAL (07:48)
[2024-08-04] MEDS: NORVASC 5 MG PO (07:48)
[2024-08-04] MEDS: TOPROL XL 100 MG PO (07:48)
[2024-08-04] MEDS: TYLENOL 975 MG PO ×3 (07:48→20:50)
[2024-08-04] MEDS: LASIX 40 MG IV ×2 (07:49→15:23)
[2024-08-04] MEDS: TIMOPTIC 0.5% OPHTHALMIC SOLUTION 1 DROP BOTH EYES (07:49)
[2024-08-04] MEDS: ELIQUIS 2.5 MG PO ×2 (07:49→20:50)
[2024-08-04 08:22] LABS: Blood Urea Nitrogen 24 mg/dl (7-17); Calcium 8.9 mg/dl (8.4-10.2); Carbon Dioxide 32 mmol/L (22-30); Chloride 101 mmol/L (98-107); Estimated Creatinine Clearance 36 ml/min; Glucose 98 mg/dl (70-99); Potassium 4.1 mmol/L (3.5-5.1); Sodium 141 mmol/L (135-145); eGFR > 60.00
--- NOTE | 2024-08-04 09:31 | W.PN.CD ---
Today's Communication / Plan
-
Increase Lasix to 40 mg IV twice daily
Impression / Plan
-
HFpEF - acute on chronic.
- agree with diuresis. Increase Lasix to 40 mg IV twice daily
- daily weights, I&Os, fluid/sodium restrictions.
- monitor BP and renal labs.
- echo 06/07/24 with EF 65-70%, mild MR, mod TR.
Afib/Aflutter - stable in NSR.
- OAC with Eliquis 2.5mg BID.
HTN - stable
HLD - stable on Crestor, continue.
CVA - stable.
- residual RLE weakness, wheelchair bound.
ECHO 06/07/24
Normal biventricular size and systolic function without regional wall motion
abnormality.
Mild concentric left ventricular hypertrophy.
Severe biatrial enlargement.
Mild mitral regurgitation.
Moderate eccentric tricuspid regurgitation.
Estimated PASP 45-50 mmHg and estimated RA 3 mmHg.
Subjective: Breathing slightly improved but still requiring supplemental oxygen (not at home). No lower extremity edema. Telemetry notable for sinus rhythm with intermittent sinus bradycardia. No arrhythmias.
Physical Exam
Vital Signs/Labs
Vital Signs
Temp Pulse Resp BP Pulse Ox
98.3 F 62 22 157/88 95
08/04/24 07:20 08/04/24 07:48 08/04/24 07:20 08/04/24 07:48 08/04/24 07:20
08/03/24 08/04/24 08/05/24
06:59 06:59 06:59
Actual Weight 46.522 kg 44.5 kg
08/03/24 07:48
08/04/24 07:32
Magnesium 2.0 mg/dl (1.6-2.3) 08/04/24 07:32
08/02/24
Unknown
Kkt-B-Yxfzcwuidae Pept 6930
LAB Results
08/02/24
Unknown
Troponin I < 0.012
Physical Exam
Constitutional: No acute distress and Comfortable
Cardiovascular: Rhythm & rate is regular, Pedal edema is absent, S1S2 is normal and Murmur/rub/gallop absent
Respiratory: Respiratory effort normal (Decreased breath sounds at the bases with crackles in the midlung bower)
Neuro/Psych: AO x 3
Data Reviewed
-
Date of Service: August 04, 2024
Medical Decision Making: Reviewed Test Results, Independent Historian Assessment, Test Interpretation and Review of Case with other Provider
EKG: Tracing Personally Visualized and interpreted
Echo: Report Reviewed by me
X-Ray/CT/US/MRI/NUC/PET: Image Personally Visualized and interpreted
Labs: Labs Reviewed by me
[2024-08-04] MEDS: FARXIGA 10 MG PO (10:40)
--- NOTE | 2024-08-04 11:07 | PN.CDI ---
CDI
- -
CDI:
Physician Documentation Request
Admit Date: 08/02/24 13:00
Dear Doctor Laz,
Please review the following and provide your response in the progress notes.
Clinical Indicators:
- 08/02 Cardiology indicates acute on chronic HFpEF
- 'She was admitted at last month for acute HFpEF and was not sent home on diuretics'
- 08/03 PN 'Acute Diastolic Heart Failure'
Please clarify which of the following accurately represents the acuity of the HFpEF.
Acute HFpEF
Acute on chronic HFpEF
Other (please specify)
Use of terms such as suspected, likely, concern for, or probable (associated with a specific diagnosis that is being evaluated, monitored, or treated as if it exists) are acceptable and can be coded in the inpatient setting, when documented at the
time of discharge.
Thank you,
Chacho Becker RN
CDI Specialist
Please use your independent medical judgment in providing your response.
--- NOTE | 2024-08-04 13:48 | CM ---
Patient seen bedside, discussed cost of Farxiga, asking CM to update Toni walton. CM placed call to Toni, discussed cost of Farxiga, Toni reports if necessary, patient will be able to afford. Toni reports patient will need transport back to facility.
Patient remains on O2, awaiting PT recommendations. CM will continue to follow for all discharge planning needs.
Plan; return to [facility] likely, wean O2, watch for PT evals.
--- NOTE | 2024-08-04 15:21 | W.PN.HOSP.TC ---
Today's Communication/Plan
-
Continue IV diuresis which was increased to twice daily today
Assessment / Plan
Assessment / Plan
Physical Exam
General: Comfortable and Conversant
HEENT: Anicteric, Moist mucous membranes and Oxygen (Nasal Canula )
Respiratory: Rales (Diffuse) and Non Labored Respirations
Cardiac: S1/S2, Regular Rhythm and Murmur (3/6 Systolic Murmur heart best at right lower sternal border)
GI: Soft and Non Tender. Positive bowel sounds.
Musculoskeletal: No Cyanosis and No Edema
Skin: Warm and Dry
Neuro: Awake, Alert, Oriented and Nonfocal/grossly intact
Psych: Calm
Assessment/Plan
89-year-old female past medical history of atrial fibrillation/flutter on Eliquis, hypertension, osteoarthritis, osteoporosis, glaucoma, CVA in 2023, presenting with hypoxemia and shortness of breath. On 6 L currently. COVID influenza negative.
Chest x-ray shows mild pulm edema. Cardiac BNP of 7000. Recent echo shows mild concentric LVH, severe biatrial enlargement, moderate eccentric tricuspid regurgitation. Present consistent with acute hypoxemic respiratory failure secondary to CHF
exacerbation. IV Lasix. Cardiology consulted at the time of admission.
Acute Hypoxic Respiratory Failure secondary to Acute on Chronic Heart Failure with Preserved Ejection Fraction
-Continue supplemental oxygen
-Titer oxygen as able to keep pulse ox between 88-90%
Acute on Chronic Heart Failure with Preserved Ejection Fraction
-Echo Jun 2024: Normal biventricular size and systolic function without regional wall motion abnormality. Mild concentric left ventricular hypertrophy. Stage I diastolic dysfunction. Mild mitral regurgitation.
-Consult Cardiology
-Initially on Lasix 40mg IV Daily -- now increased to Lasix 40 mg IV BID
-Monitor Is&Os and Daily Weights
-PO fluid and sodium restricted diet
-Farxiga cost being evaluated
CVA with Residual Right Hemiparesis (Aug 2023)
-Patient is wheelchair bound and requires two person lift for transfer
Paroxysmal Atrial Fibrillation/Flutter
-Continue Eliquis for anticoagulation
-Continue Metoprolol for rate/rhythm control
Essential Hypertension
-Continue amlodipine and metoprolol with hold parameters
Hyperlipidemia
-Continue Crestor
Glaucoma
-Continue latanoprost and timolol drops
DVT Prophylaxis: Eliquis
Code Status: DNR
Anticipated Discharge: > 48 hours
Subjective/Interval History
-
Date of Service: August 04, 2024
Patient was seen and examined. She denied any chest pain or shortness of breath.
Objective Data
-
Labs:
Laboratory Results
08/04/24
07:32
Sodium 141
Potassium 4.1
Chloride 101
Carbon Dioxide 32 H
BUN 24 H
Creatinine 0.6
Glucose 98
Calcium 8.9
Vital Signs:
Vital Signs
Temp Pulse Resp BP Pulse Ox
97.5 F 70 22 118/74 96
08/04/24 11:00 08/04/24 11:00 08/04/24 11:00 08/04/24 11:00 08/04/24 11:00
I&O
08/03/24 08/04/24 08/05/24
06:59 06:59 06:59
Intake Total 240 / 240 720 / 720
Output Total 100 / 100 650 / 650
Balance 140 / 140 70 / 70
[2024-08-04] MEDS: CRESTOR 5 MG PO (20:50)
[2024-08-04] MEDS: XALATAN OPHTHALMIC SOLUTION 1 DROP BOTH EYES (20:51)
[2024-08-05 03:41] VITALS: BP 119/79
[2024-08-05 06:00] VITALS: BMI 20.7
[2024-08-05 07:30] VITALS: BP 121/77
[2024-08-05] MEDS: LIDOCAINE 4% PATCH 1 PATCH TOPICAL (07:49)
[2024-08-05] MEDS: LASIX 40 MG IV (07:50)
[2024-08-05] MEDS: FARXIGA 10 MG PO (07:50)
[2024-08-05] MEDS: ELIQUIS 2.5 MG PO ×2 (07:50→19:47)
[2024-08-05] MEDS: TYLENOL 975 MG PO ×3 (07:50→19:46)
[2024-08-05] MEDS: NORVASC 5 MG PO (07:50)
[2024-08-05] MEDS: TIMOPTIC 0.5% OPHTHALMIC SOLUTION 1 DROP BOTH EYES (07:51)
[2024-08-05] MEDS: TOPROL XL PO (07:51)
[2024-08-05 08:31] LABS: Blood Urea Nitrogen 19 mg/dl (7-17); Calcium 8.5 mg/dl (8.4-10.2); Carbon Dioxide 37 mmol/L (22-30); Chloride 97 mmol/L (98-107); Estimated Creatinine Clearance 36 ml/min; Glucose 97 mg/dl (70-99); Magnesium 1.9 mg/dl (1.6-2.3); Potassium 3.8 mmol/L (3.5-5.1); Sodium 141 mmol/L (135-145); eGFR > 60.00
--- NOTE | 2024-08-05 08:34 | W.PN.CD ---
Today's Communication / Plan
-
transition to lasix 20mg PO daily
cont farxiga 10mg daily
BMP in one week
please call us back with additional questions
Impression / Plan
-
HFpEF - acute on chronic. Improved s/p IV lasix
- echo 06/07/24 with EF 65-70%, mild MR, mod TR.
-transition to lasix 20mg PO daily
-cont farxiga 10mg daily
Paroxymal Afib/Aflutter - stable in NSR.
- OAC with Eliquis 2.5mg BID. and Toprol XL
HTN - stable
HLD - stable on Crestor, continue.
CVA - stable.
- residual RLE weakness, wheelchair bound.
ECHO 06/07/24
Normal biventricular size and systolic function without regional wall motion
abnormality.
Mild concentric left ventricular hypertrophy.
Severe biatrial enlargement.
Mild mitral regurgitation.
Moderate eccentric tricuspid regurgitation.
Estimated PASP 45-50 mmHg and estimated RA 3 mmHg.
Subjective: Breathing slightly improved but still requiring supplemental oxygen (not at home). No lower extremity edema. Telemetry notable for sinus rhythm with intermittent sinus bradycardia. No arrhythmias.
Physical Exam
Vital Signs/Labs
Vital Signs
Temp Pulse Resp BP Pulse Ox
98.5 F 58 20 121/77 96
08/05/24 07:30 08/05/24 07:51 08/05/24 07:30 08/05/24 07:50 08/05/24 07:30
08/04/24 08/05/24 08/06/24
06:59 06:59 06:59
Actual Weight 44.5 kg 41.957 kg
08/03/24 07:48
08/05/24 07:14
Magnesium 1.9 mg/dl (1.6-2.3) 01/30/25 07:14
08/02/24
Unknown
Slv-C-Zswsugnlbvt Pept 6930
LAB Results
08/02/24
Unknown
Troponin I < 0.012
Physical Exam
Constitutional: No acute distress and Comfortable
EENT: Moist mucous membranes
Cardiovascular: Rhythm & rate is regular, Pedal edema is absent, JVD pressure is normal and Systolic murmur present
Respiratory: Respiratory effort normal and Lungs clear to auscul.
Neuro/Psych: AO x 3
Data Reviewed
-
Date of Service: August 05, 2024
EKG: Other (Tele: SR 70s)
Labs: Labs Reviewed by me
--- NOTE | 2024-08-05 10:42 | W.PN.HOSP.TC ---
Today's Communication/Plan
-
Discharge today
Assessment / Plan
Assessment / Plan
Physical Exam
General: Comfortable and Conversant
HEENT: Anicteric, Moist mucous membranes and Oxygen (Nasal Canula )
Respiratory: CTAB
Cardiac: S1/S2, Regular Rhythm and Murmur (3/6 Systolic Murmur heart best at right lower sternal border)
GI: Soft and Non Tender. Positive bowel sounds.
Musculoskeletal: No Cyanosis and No Edema
Skin: Warm and Dry
Neuro: Awake, Alert, Oriented and Nonfocal/grossly intact
Psych: Calm
Assessment/Plan
89-year-old female past medical history of atrial fibrillation/flutter on Eliquis, hypertension, osteoarthritis, osteoporosis, glaucoma, CVA in 2023, presenting with hypoxemia and shortness of breath. On 6 L currently. COVID influenza negative.
Chest x-ray shows mild pulm edema. Cardiac BNP of 7000. Recent echo shows mild concentric LVH, severe biatrial enlargement, moderate eccentric tricuspid regurgitation. Present consistent with acute hypoxemic respiratory failure secondary to CHF
exacerbation. IV Lasix started. Cardiology consulted at the time of admission.
Acute Hypoxic Respiratory Failure secondary to Acute on Chronic Heart Failure with Preserved Ejection Fraction
-Continue supplemental oxygen
-Titer oxygen as able to keep pulse ox between 88-90%
Acute on Chronic Heart Failure with Preserved Ejection Fraction
-Echo Jun 2024: Normal biventricular size and systolic function without regional wall motion abnormality. Mild concentric left ventricular hypertrophy. Stage I diastolic dysfunction. Mild mitral regurgitation.
-Consult Cardiology
-Initially on Lasix 40mg IV Daily -- then increased to Lasix 40 mg IV BID -- now on Lasix 20mg PO daily
-Monitor Is&Os and Daily Weights
-PO fluid and sodium restricted diet
-Farxiga 10 mg daily
-BMP within 1 week
CVA with Residual Right Hemiparesis (Aug 2023)
-Patient is wheelchair bound and requires two person lift for transfer
Paroxysmal Atrial Fibrillation/Flutter
-Continue Eliquis for anticoagulation
-Continue Metoprolol Succinate for rate/rhythm control
Essential Hypertension
-Continue amlodipine and metoprolol with hold parameters
Hyperlipidemia
-Continue Crestor
Glaucoma
-Continue latanoprost and timolol drops
DVT Prophylaxis: Eliquis
Code Status: DNR
Patient is in need of oxygen at 2 liters/minute via nasal cannula continuously due to pulse oximetry of 86% to 88% on room air at rest. Oxygen will help to improve hypoxemia. Oxygen is needed to improve symptoms.
More than 30 minutes spent in discharge including
Final examination of the patient
Summarizing hospital stay
Instructions for continuing care to all relevant caregivers
Preparation of discharge records, prescriptions, and referral forms
Total time spent (in minutes): 40
Anticipated Discharge: Today
Subjective/Interval History
-
Date of Service: August 05, 2024
Patient was seen and examined. She denied any chest pain or shortness of breath.
Objective Data
-
Labs:
Laboratory Results
08/05/24
07:14
Sodium 141
Potassium 3.8
Chloride 97 L
Carbon Dioxide 37 H
BUN 19 H
Creatinine 0.6
Glucose 97
Calcium 8.5
Vital Signs:
Vital Signs
Temp Pulse Resp BP Pulse Ox
98.5 F 58 20 121/77 96
08/05/24 07:30 08/05/24 07:51 08/05/24 07:30 08/05/24 07:50 08/05/24 08:00
I&O
08/04/24 08/05/24 08/06/24
06:59 06:59 06:59
Intake Total 720 / 720 1200 / 1200
Output Total 650 / 650
Balance 70 / 70 1200 / 1200
[2024-08-05 11:28] VITALS: BP 120/69
[2024-08-05 12:25] VITALS: O2SAT 86; O2SAT 95
--- NOTE | 2024-08-05 12:27 | RESPNOTE ---
Pt order home O2 assessment and is wheelchair bound.
Testing done sitting in bed. RA 86% resting in bed and placed on 2L 95%.
Dr. Nesbitt notified of results.
--- NOTE | 2024-08-05 12:28 | CM ---
Addendum entered by Vero Bravo 08/05/24 14:41:
Additional calls placed to [facility] [place] to discuss patient discharge/new O2 needs, voicemail left.
Original Note:
CM reviewed chart, patient qualifies for home O2. Multiple phone calls to [facility] to discuss discharge planning as patient is medically stable for discharge. CM will need to review with nurse at [facility] prior to discharge regarding new O2
requirements. Will fax clinicals to [facility] [phone].
Plan; return to [facility], will need home O2, will need ambulance transport.
[facility]
Report [phone]
[2024-08-05 15:00] VITALS: BP 135/87
[2024-08-05] MEDS: CRESTOR 5 MG PO (19:46)
[2024-08-05] MEDS: XALATAN OPHTHALMIC SOLUTION 1 DROP BOTH EYES (19:47)
[2024-08-05 23:18] VITALS: BP 139/80
[2024-08-06 05:49] VITALS: BMI 20.7
[2024-08-06 07:00] VITALS: BP 122/81
--- NOTE | 2024-08-06 07:27 | W.PN.HOSP.TC ---
Today's Communication/Plan
-
Discharge today
Assessment / Plan
Assessment / Plan
Physical Exam
General: Comfortable and Conversant
HEENT: Anicteric, Moist mucous membranes and Oxygen (Nasal Canula )
Respiratory: CTAB
Cardiac: S1/S2, Regular Rhythm and Murmur (3/6 Systolic Murmur heart best at right lower sternal border)
GI: Soft and Non Tender. Positive bowel sounds.
Musculoskeletal: No Cyanosis and No Edema
Skin: Warm and Dry
Neuro: Awake, Alert, Oriented and Nonfocal/grossly intact
Psych: Calm
Assessment/Plan
89-year-old female past medical history of atrial fibrillation/flutter on Eliquis, hypertension, osteoarthritis, osteoporosis, glaucoma, CVA in 2023, presenting with hypoxemia and shortness of breath. On 6 L currently. COVID influenza negative.
Chest x-ray shows mild pulm edema. Cardiac BNP of 7000. Recent echo shows mild concentric LVH, severe biatrial enlargement, moderate eccentric tricuspid regurgitation. Present consistent with acute hypoxemic respiratory failure secondary to CHF
exacerbation. IV Lasix started. Cardiology consulted at the time of admission.
Acute Hypoxic Respiratory Failure secondary to Acute on Chronic Heart Failure with Preserved Ejection Fraction
-Continue supplemental oxygen
-Titer oxygen as able to keep pulse ox between 88-90%
Acute on Chronic Heart Failure with Preserved Ejection Fraction
-Echo Jun 2024: Normal biventricular size and systolic function without regional wall motion abnormality. Mild concentric left ventricular hypertrophy. Stage I diastolic dysfunction. Mild mitral regurgitation.
-Consult Cardiology
-Initially on Lasix 40mg IV Daily -- then increased to Lasix 40 mg IV BID -- now on Lasix 20mg PO daily
-Monitor Is&Os and Daily Weights
-PO fluid and sodium restricted diet
-Farxiga 10 mg daily
-BMP within 1 week
CVA with Residual Right Hemiparesis (Aug 2023)
-Patient is wheelchair bound and requires two person lift for transfer
Paroxysmal Atrial Fibrillation/Flutter
-Continue Eliquis for anticoagulation
-Continue Metoprolol Succinate for rate/rhythm control
Essential Hypertension
-Continue amlodipine and metoprolol with hold parameters
Hyperlipidemia
-Continue Crestor
Glaucoma
-Continue latanoprost and timolol drops
DVT Prophylaxis: Eliquis
Code Status: DNR
Patient is in need of oxygen at 2 liters/minute via nasal cannula continuously due to pulse oximetry of 86% to 88% on room air at rest. Oxygen will help to improve hypoxemia. Oxygen is needed to improve symptoms.
More than 30 minutes spent in discharge including
Final examination of the patient
Summarizing hospital stay
Instructions for continuing care to all relevant caregivers
Preparation of discharge records, prescriptions, and referral forms
Total time spent (in minutes): 35
Anticipated Discharge: Today
Subjective/Interval History
-
Date of Service: August 06, 2024
Patient was seen and examined. She denied any chest pain, shortness of breath or any other complaints.
Objective Data
-
Labs:
Laboratory Results
08/06/24
06:00
Sodium Pending
Potassium Pending
Chloride Pending
Carbon Dioxide Pending
BUN Pending
Creatinine Pending
Glucose Pending
Calcium Pending
Vital Signs:
Vital Signs
Temp Pulse Resp BP Pulse Ox
97.7 F 60 20 139/80 94
08/05/24 23:18 08/05/24 23:18 08/05/24 23:18 08/05/24 23:18 08/05/24 23:18
I&O
08/05/24 08/06/24 08/07/24
06:59 06:59 06:59
Intake Total 1200 / 1200 900 / 900
Balance 1200 / 1200 900 / 900
[2024-08-06 08:34] LABS: Blood Urea Nitrogen 18 mg/dl (7-17); Calcium 9.5 mg/dl (8.4-10.2); Carbon Dioxide 36 mmol/L (22-30); Chloride 95 mmol/L (98-107); Estimated Creatinine Clearance 36 ml/min; Glucose 93 mg/dl (70-99); Magnesium 2.1 mg/dl (1.6-2.3); Potassium 3.6 mmol/L (3.5-5.1); Sodium 137 mmol/L (135-145); eGFR > 60.00
[2024-08-06] MEDS: LIDOCAINE 4% PATCH 1 PATCH TOPICAL (08:41)
[2024-08-06] MEDS: LASIX 20 MG PO (08:41)
[2024-08-06] MEDS: TYLENOL 975 MG PO (08:41)
[2024-08-06] MEDS: TOPROL XL 100 MG PO (08:42)
[2024-08-06] MEDS: TIMOPTIC 0.5% OPHTHALMIC SOLUTION 1 DROP BOTH EYES (08:42)
[2024-08-06] MEDS: NORVASC 5 MG PO (08:42)
[2024-08-06] MEDS: FARXIGA 10 MG PO (08:42)
[2024-08-06] MEDS: ELIQUIS 2.5 MG PO (08:42)
--- NOTE | 2024-08-06 09:22 | CM ---
Addendum entered by Vero Bravo 08/06/24 12:19:
Patient seen, discussed return to [facility], 3:30 ambulance transport. [facility] updated on d/c.
Original Note:
CM reviewed chart, left another voicemail for [facility] at [place] regarding patient discharge and review clinicals. Clinicals faxed to [facility] for home O2, will deliver bedside. Phone call to patients Toni walton, to discuss
discharge planning. IMM verbally reviewed, agreeable to discharge, placed in chart. Patient will require ambulance transport. CM will continue to follow for all discharge planning needs.
Plan; return to [facility], ambulance transport, home [facility]
Report [phone]
[2024-08-06 15:00] VITALS: BP 115/63
--- NOTE | 2024-08-06 16:07 | PTCARENOTE ---
Attempting to contact [facility] to give report on patient x2. X2 messages left, no return call as of now.
--- NOTE | 2024-08-09 11:08 | W.HF.CON ---
Heart Failure
- LV Function
Left ventricular function study result: LV Ejection fraction >/= 50% (ECHO 06/07/24)
Ejection Fraction Percentage: 65-70
- ARNI
Patient already on ARNI: No
Heart Failure ARNI Not Indicated: LV Ejection Fraction >/= 40%
- ACEI/ARB
Patient already on ACEI/ARB: No
Heart Failure ACEI/ARB Not Indicated: LV Ejection Fraction > 40%
- Beta Cydney
Patient already on Evidence Based Beta Cydney: Yes
- Mineralocorticord Receptor Antagonist
Patient already on MRA: No
Heart Failure MRA Not Indicated: LV Ejection Fraction > 40%
- SGLT-2 Inhibitor
Patient already on SGLT-2 Inhibitor: Yes
- Afib Anticoagulation
Patient already on Anticoagulation for Afib: Yes
- NYHA CHF Classification
NYHA CHF Classification Level: Class III - Symptoms w/ min exertion, interferes w/ nml daily activity
- ACC/AHA Stage
ACC/AHA Stage: Stage C: Symptomatic Heart Failure
== END 2024-08-06 15:59 | disposition home or self-care (01) | DRG 291 ==
LOC: 4 WEST ACU 13:00
PROVIDERS: Physician Assistant Medical; ADMITTING PHYSICIAN Hospitalist; ATTENDING PHYSICIAN Hospitalist; CONSULT PHYSICIAN Internal Medicine Cardiovascular Disease; EMERGENCY PHYSICIAN Emergency Medicine; FAMILY PHYSICIAN Internal Medicine
DX: I11.0 Hypertensive heart disease with heart failure (principal); I50.33 Acute on chronic diastolic (congestive) heart failure; J96.01 Acute respiratory failure with hypoxia; I69.351 Hemiplegia and hemiparesis following cerebral infarction affecting right dominant side; I48.92 Unspecified atrial flutter; I48.0 Paroxysmal atrial fibrillation; Z11.52 Encounter for screening for COVID-19; H40.9 Unspecified glaucoma; E78.00 Pure hypercholesterolemia, unspecified; M19.90 Unspecified osteoarthritis, unspecified site; M81.0 Age-related osteoporosis without current pathological fracture; Z87.891 Personal history of nicotine dependence; Z82.49 Family history of ischemic heart disease and other diseases of the circulatory system; Z88.0 Allergy status to penicillin; Z88.3 Allergy status to other anti-infective agents; Z79.01 Long term (current) use of anticoagulants; Z99.3 Dependence on wheelchair; Z66 Do not resuscitate; Z79.899 Other long term (current) drug therapy
CPT/HCPCS: 71045; 80048; 80053; 83735; 83880; 84484; 85025; 85027; 87502; 87811; 93005; 94761; 96374; 97162; 97166; 99285

== ENCOUNTER → 2024-08-11 09:54 | Outpatient (REF) | payer MEDICARE, SELFPAY ==
[2024-08-11 10:21] LABS: Hematocrit 32.5 % (37.0-47.0); Hemoglobin 9.6 g/dL (12.0-16.0); Mean Corp Hgb Conc. 29.5 g/dL (33.0-37.0); Mean Corpuscular Hgb 26.9 pg (27.0-31.0); Mean Platelet Volume 9.9 fL (7.4-10.4); Platelet Count 344 10^3/uL (130-400); Red Blood Cell Count 3.57 10^6/uL (4.20-5.40); Red Cell Dist. Width 14.4 % (11.5-14.5); White Blood Cell Count 6.5 10^3/uL (4.8-10.8)
[2024-08-11 12:14] LABS: Blood Urea Nitrogen 23 mg/dl (7-17); Calcium 8.9 mg/dl (8.4-10.2); Carbon Dioxide 32 mmol/L (22-30); Chloride 97 mmol/L (98-107); Glucose 97 mg/dl (70-99); Magnesium 2.2 mg/dl (1.6-2.3); Potassium 3.6 mmol/L (3.5-5.1); Sodium 136 mmol/L (135-145); eGFR > 60.00
== END ==
LOC: OLABPATH 09:54
PROVIDERS: ATTENDING PHYSICIAN Internal Medicine
DX: D64.9 Anemia, unspecified (principal); E78.5 Hyperlipidemia, unspecified; E61.2 Magnesium deficiency
CPT/HCPCS: 36415; 80048; 83735; 85027

== ENCOUNTER 2024-08-17 19:16 | Inpatient (IN) | payer MEDICARE, SELFPAY ==
[2024-08-17] VITALS (9 sets, daily range): BP systolic 83–139; BP diastolic 68–77; BMI 23.2; BMI 19.7
--- NOTE | 2024-08-17 13:43 | ED.GENMED ---
History of Present Illness
General
Chief Complaint: Breathing Problem
Source: patient
Exam Limitations: none
Time Seen by Provider: 08/17/24 13:42
Nursing documentation reviewed up to this point in time: agreed with
History of Present Illness
History of Present Illness:
89-year-old female with history of CVA with residual right-sided hemiparesis, paroxysmal A-fib on Eliquis, HTN, HLD presents from [facility] via EMS for shortness of breath and long term staff unable to get her pulse ox above the high
80s on 2 L nasal cannula.
Admitted - for acute on chronic heart failure with preserved ejection fraction. Discharge instructions were supplemental oxygen, titrate oxygen as able to keep pulse ox between 80 and 90%. As well as Lasix 20 mg p.o. daily and Farxiga
10 mg daily
Past History
Past History
ED Past Medical History: Arrthythmia, CHF, CVA, HTN and Other (R hemiparesis post CVA)
ED Past Surgical History: Orthopedic (R hip ORIF)
Social History
Tobacco: Non-smoker
Alcohol: None
Review of Systems
Review of Systems
Allergies reviewed?: Yes
All Other Systems: ROS reviewed and negative except as documented in HPI and ROS
Constitutional: Denies fever, fatigue or chills
Respiratory: Denies cough or trouble breathing
Cardiac: Denies chest pain
ABD/GI: Reports no symptoms
: Reports incontinence; Denies dysuria or difficulty voiding
Musculoskeletal: Reports no symptoms; Denies edema
Skin: Reports no symptoms
Neurological: Reports dizzy (chronic intermittent dizziness) and other (R hemiparesis, cannot move R leg, wheelchair bound); Denies headache or weakness
Phy Exam
Physical Exam
Physical Exam:
GENERAL: No acute distress. A&Ox3.
CONSTITUTIONAL: Afebrile.
EYES: clear, conjunctivae normal
ENMT: moist mucus membranes, Pharynx nl
RESPIRATORY: Regular respirations, nonlabored, lungs with mild crackles bilateral bases. Pulse ox 88% on 2L NC, increased to 4L and now 96%
CARDIOVASCULAR: Regular rate and rhythm, no murmurs, no rubs.
GI: Soft, nontender, normal BS
MUSCULOSKELETAL: Unable to move right leg. Well perfused.
SKIN: Warm, dry, pink
PSYCH: Very pleasant, normal mood and affect. Well kept, interactive and appropriate
NEUROLOGIC: Awake, alert and oriented. Righ hemiparesis. Speech clear
Scores
Heart Failure Risk
Heart Failure Risk Score: Yes
History of Stroke or TIA: No
History of intubation for respiratory distress: No
Heart rate on ED arrival >/= 110: No
SaO2 <90% on arrival on room air: Yes
HR >/=110 during 3min walk test (or too ill to perform test): Yes
ECG has acute ischemic changes: No
Urea >/=12mmol/L (BUN 33.6mg/dL): No
Serum CO2>/=35mmol/L: No
Troponin I or T elevated to MO Level (0.4mg/dL): No
NT-proBNP >/=5,000ng/L (5,000pg/ml): No
HF Risk Score: 3
Admission Status: HIGH RISK 15.9% Consider SNF treatment or admission to hospital
Course
Orders/Labs/Results
Orders:
Orders
08/17/24 13:51
CR Chest - 2 Views Urgent
Comment:
Reason For Exam: SOB, hypoxia
08/17/24 13:55
COVID-19 Antigen Urgent
Source: Nasal Swab
Complete Blood Count/With Diff Urgent
Comprehensive Metabolic Panel Urgent
NT-proBNP Urgent
Troponin I Urgent
Influenza A+B Rapid Molecular Urgent
CHARLES Source: Nasal Swab
Specimen Description:
08/17/24 14:00
Electrocardiogram (*1) Urgent
Reason for Study: Shortness of Breath
EKG- Treatment ONCE
08/17/24 15:39
Furosemide [Lasix] 40 mg IV NOW STA
08/17/24 18:56
Admit/Transfer Patient As Directed
Co-Sign Provider:
Level of Care: Inpatient admission
Assign to:: Telemetry
Physician / Group: cristiana
Diagnosis: acute on chronic hypoxic respiratory failure
Reason for Telemetry: Subacute Heart Failure
Date to Stop Telemetry: 08/19/24
Time to Stop Telemetry: 11:00
Reason for Hospitalization: CHF exacerbation
Expected length of stay greater than two midnights?: Yes
ELOS- Estimated Length of Stay in days: 3
I certify the patient meets the requirements for IP care: Yes
PRN Pain Medication Management As Directed
May give lesser potent ordered pain med per pt: Yes
preference::
Protocol:: Medication orders for pain may be administered in a
manner that supports deferring to patient preference
when the pt is:
- Requesting an ordered lesser potent pain medication.
Least to most potent pain medications are defined
as: acetaminophen < NSAID < tramadol < opioids
(morphine, oxycodone, hydromorphone).
- Requesting a lesser dose of the same medication IF
ORDERED.
- Requesting a less intrusive route of administration
if both routes are prescribed by the provider (PO <
IV).
08/17/24 18:59
Code Status As Directed
Resuscitation Status: Do not resuscitate
Reached after discussion with pt or family/Healthcare POA: Yes
DNR Bracelet Application ONCE
08/17/24 19:03
CARDIOLOGY CONSULT Routine
Consulting Provider: Raghav Cleveland
Was physician already notified: Yes
08/19/24 11:00
DC Protocol for Telemetry ONCE
Abnormal Lab Results
08/17/24
13:55
RBC 3.98 L 10^6/uL
(4.20-5.40)
Hgb 10.7 L g/dL
(12.0-16.0)
Hct 34.9 L %
(37.0-47.0)
MCH 26.9 L pg
(27.0-31.0)
MCHC 30.7 L g/dL
(33.0-37.0)
Absolute Lymphs (auto) 0.6 L 10^3/uL
(1.2-3.4)
Absolute Monos (auto) 0.7 H 10^3/uL
(0.1-0.6)
Neutrophils % 77.2 H %
(42.2-75.2)
Lymphocytes % 8.8 L %
(20.5-51.1)
Monocytes % 10.6 H %
(1.7-9.3)
BUN 21 H mg/dl
(7-17)
Creatinine 0.5 L mg/dL
(0.6-1.0)
Glucose 175 H mg/dl
(70-99)
Alkaline Phosphatase 155 H U/L
(38-126)
08/17/24 13:55
08/17/24 13:55
Vital Signs
Initial and Last Documented VS:
Initial Vital Signs
Temp Pulse Resp BP Pulse Ox
98.2 F 80 18 97/68 97
08/17/24 13:35 08/17/24 13:35 08/17/24 13:35 08/17/24 13:35 08/17/24 13:35
Last Documented Vital Signs
Temp Pulse Resp BP Pulse Ox
98.2 F 69 20 110/71 95
08/17/24 13:35 08/17/24 18:45 08/17/24 18:45 08/17/24 18:00 08/17/24 18:45
MDM/Problems Addressed
Differential Diagnosis Includes:
chronic CHF, acute CHF
MDM/Problems Addressed:
89-year-old female with history of CVA with residual right-sided hemiparesis, paroxysmal A-fib on Eliquis, HTN, HLD presents from [facility] via EMS for shortness of breath and long term staff unable to get her pulse ox above the high
80s on 2 L nasal cannula.
She was being seen by P/T and reportedly c/o feeling dizzy, pt states she has chronic intermittent dizziness and this is nothing new.
Admitted - for acute on chronic heart failure with preserved ejection fraction. Discharge instructions were supplemental oxygen (new), titrate oxygen as able to keep pulse ox between 88% and 90%. As well as Lasix 20 mg p.o. daily and
Farxiga 10 mg daily
Afebrile, NAD
Pulse ox 88% on 2 L nasal cannula on arrival, placed on 4 L nasal cannula and pulse ox increased to 96%.
Patient is having no respiratory labor, appears to be slightly winded with conversation
Records reviewed:
Echo Jun 2024: Normal biventricular size and systolic function without regional wall motion abnormality. Mild concentric left ventricular hypertrophy. Stage I diastolic dysfunction. Mild mitral regurgitation.
Wt 08/04: 44.5 kg, 08/05: 42 kg, today 47.7 kg
Pt is DNR
3:30 PM:
CBC with no clinically significant abnormality
CMP with no clinically significant abnormality
COVID-negative
BNP 4040 down from 6930 on 08/02/2024
Troponin within normal limits
6:00 PM:
Chest x-ray radiology report read: IMPRESSION:
Cardiomegaly with mild pulmonary edema, moderate right pleural effusion and small-moderate left pleural effusion
Plan: IV Lasix, admit: Acute on chronic respiratory failure, pleural effusion.
Hospitalist notified of admission
*Critical Care Note
Total Time (30-74mins, 75-104mins- exclusive of procedures): Not Applicable
ED Attending Note
-
Portions of this chart may have been created with voice recognition software.� Occasional wrong word or��sound alike� substitutions may have occurred due to the inherent limitations of voice recognition software.
Discharge Plan
Departure
Patient Disposition: Admit
Date of Disposition: 08/17/24
Time of Disposition: 17:58
Admit to: Telemetry
Presentation/result/management discussed w/ accepting MD/DO: Hospitalist
Condition: Fair
Covid-19: Negative COVID-19
Discharge Problem:
Acute on chronic congestive heart failure, Acute on chronic hypoxic respiratory failure, Bilateral pleural effusion
Interventions
Interventions:
*Risk Screen - Suicide Last Done: 08/17/24 13:35
*General Assessment Last Done: 08/17/24 13:35
*ED COVID-19 Vaccine History Last Done: 08/17/24 13:35
ED- Cardiac Assessment Last Done: 08/17/24 15:00
ED- Pulmonary Assessment Last Done: 08/17/24 15:00
[2024-08-17 14:14] LABS: % Basophils 0.3 % (0-2); % Eosinophils 2.7 % (0-6); % Immature Granulocytes 0.4 % (0-0.5); % Lymphocytes 8.8 % (20.5-51.1); % Monocytes 10.6 % (1.7-9.3); % Neutrophils 77.2 % (42.2-75.2); Absolute Eosinophils 0.2 10^3/uL (0-0.7); Absolute Lymphocytes 0.6 10^3/uL (1.2-3.4); Absolute Monocytes 0.7 10^3/uL (0.1-0.6); Absolute Neutrophils 5.2 10^3/uL (1.4-6.5); Hematocrit 34.9 % (37.0-47.0); Hemoglobin 10.7 g/dL (12.0-16.0); Mean Corp Hgb Conc. 30.7 g/dL (33.0-37.0); Mean Corpuscular Hgb 26.9 pg (27.0-31.0); Mean Corpuscular Volume 87.7 fL (81.0-99.0); Mean Platelet Volume 9.4 fL (7.4-10.4); Nucleated Red Blood Cells % 0 %; Platelet Count 353 10^3/uL (130-400); Red Blood Cell Count 3.98 10^6/uL (4.20-5.40); Red Cell Dist. Width 14.4 % (11.5-14.5); White Blood Cell Count 6.7 10^3/uL (4.8-10.8)
[2024-08-17 14:26] LABS: ALT (SGPT) 14 U/L (0-35); AST (SGOT) 30 U/L (14-36); Albumin 3.9 g/dl (3.5-5.0); Alkaline Phosphatase 155 U/L (38-126); Blood Urea Nitrogen 21 mg/dl (7-17); Calcium 8.8 mg/dl (8.4-10.2); Carbon Dioxide 25 mmol/L (22-30); Chloride 99 mmol/L (98-107); Estimated Creatinine Clearance 41 ml/min; Glucose 175 mg/dl (70-99); Potassium 3.6 mmol/L (3.5-5.1); Sodium 136 mmol/L (135-145); Total Bilirubin 0.9 mg/dl (0.2-1.3); eGFR > 60.00
[2024-08-17 14:30] LABS: COVID-19 Antigen Negative (Negative)
[2024-08-17 15:08] LABS: NT-proBNP 4040 pg/ml; Troponin I < 0.012 ng/ml
[2024-08-17] MEDS: LASIX 40 MG IV (17:05)
--- NOTE | 2024-08-17 18:42 | HPS.HSE ---
Family Physician
-
Family Physician: Venancio Grace
Chief Complaint
-
hypoxia
History of Present Illness
89-year-old female with history of CVA with residual right-sided hemiparesis, paroxysmal A-fib on Eliquis, HTN, HLD presents from [facility] via EMS for shortness of breath and prison staff unable to get her pulse ox above the high
80s on 2 L nasal cannula. Patient denied any short of breath. She denies any weight gain. Patient denied any congestion, cough patient denied any headache, dizzy. Patient denied fever, chills. Patient denied any abdominal pain, nausea, vomiting
diarrhea. Patient denied dysuria hematuria
She has noted to have weight gain since the last discharge. Patient received a dose of Lasix in the ER admitting for further management.
Medical History
Past Medical History
Past Medical History: Reports Other
Additional Past Medical History:
CVA with Residual Right Hemiparesis (Aug 2023)
Paroxysmal Atrial Fibrillation/Flutter
Essential Hypertension
Hyperlipidemia
Glaucoma
Osteoarthritis
Osteoporosis
Past Surgical History: Reports Other
Additional Past Surgical History:
Hip Fracture Repair (Aug 2023)
Social History
Tobacco: Former Smoker
Alcohol: None
Drug: None
Personal: Single
Living: Senior Care
Family History
Family History: Not pertinent
Allergies / Home Medications
Allergies reflects when Allergies were last updated in [employer].
Home Medications with original date entered in [employer]
Allergy/Medication List:
Allergies
Allergy/AdvReac Type Severity Reaction Status Date / Time
Penicillins Allergy Unknown Verified 08/02/24 11:07
sulfamethazine Allergy Unknown Verified 08/02/24 11:07
trimethoprim Allergy Unknown Verified 08/02/24 11:07
Home Medications
acetaminophen 325 mg tablet (Tylenol) 975 mg PO TID Pain 06/05/24
amlodipine 5 mg tablet (Norvasc) 5 mg PO DAILY Blood Pressure 06/05/24
apixaban 2.5 mg tablet (Eliquis) 2.5 mg PO BID Blood Clot Prevention/Tx 06/05/24
cyanocobalamin (vitamin B-12) 100 mcg tablet 100 mcg PO DAILY Smoking Cessation 06/05/24
latanoprost 0.005 % eye drops 1 drp BOTH EYES HS Eye Condition 06/05/24
loratadine 10 mg tablet (Loradamed) 10 mg PO DAILYPRN PRN allergies 06/05/24
metoprolol succinate 100 mg tablet,extended release 24 hr (Toprol XL) 100 mg PO DAILY Heart Disease/Condition 06/05/24
polyethylene glycol 3350 17 gram oral powder packet (Miralax) 17 g PO DAILYPRN PRN mild pain 06/05/24
rosuvastatin 5 mg tablet (Crestor) 5 mg PO HS High Cholesterol 06/05/24
timolol maleate 0.5 % eye drops 1 drp BOTH EYES DAILY Eye Condition 06/05/24
guaifenesin 600 mg tablet, extended release 12 hr 600 mg PO [id number] PRN cough 08/02/24
lidocaine 4 % topical patch 1 patch topical DAILY right knee 08/02/24
dapagliflozin propanediol 10 mg tablet (Farxiga) 10 mg PO DAILY #30 tabs 08/03/24
furosemide 20 mg tablet 20 mg PO DAILY #30 tabs 08/05/24
Review of Systems
-
Constitutional: Reports No Symptoms
EENT: Reports No Symptoms
Respiratory: Reports No Symptoms
Cardiac: Reports No Symptoms
Abdomen/GI: Reports No Symptoms
: Reports No Symptoms
Musculoskeletal: Reports No Symptoms
Skin: Reports No Symptoms
Neurological: Reports No Symptoms
Endocrine: Reports No Symptoms
Hematologic/Lymphatic: Reports No Symptoms
Psych: Reports No Symptoms
Physical Exam
Vital Signs
Vital Signs
Temp Pulse Resp BP Pulse Ox
98.2 F 66 19 107/68 88
08/17/24 13:35 08/17/24 17:00 08/17/24 17:00 08/17/24 17:00 08/17/24 17:00
Physical Exam
General: Well Developed, Well Nourished and No Apparent Distress
HEENT: NormoCephalic, Moist mucous membranes and Atraumatic
Respiratory: Crackles
Cardiac: S1/S2 and Regular Rhythm; No Murmur or Rub
GI: Soft, Non Tender, Non Distended and Normal Bowel Sounds; No Organomegaly
Rectal: Deferred by Provider
Musculoskeletal: No Clubbing, No Cyanosis and No Edema
Skin: No Rash
Neuro: AO x 3 and Nonfocal/grossly intact
Psych: Calm
Laboratory Results
-
08/17/24 13:55
08/17/24 13:55
Laboratory Results
Total Bilirubin 0.9 mg/dl (0.2-1.3) 08/17/24 13:55
AST 30 U/L (14-36) 08/17/24 13:55
ALT 14 U/L (0-35) 08/17/24 13:55
Alkaline Phosphatase 155 U/L (38-126) H 08/17/24 13:55
Troponin I < 0.012 ng/ml 08/17/24 13:55
Data Reviewed
-
Diagnostic Radiology: Report Reviewed by me
Lab Data: Labs Reviewed by me
Impression/Plan
-
# Acute on chronic hypoxic respiratory failure likely secondary to CHF/pleural effusion
-Patient uses 2 L at baseline, increased to 4 L
-Continue supplemental oxygen to keep sat greater than 95, wean as tolerated
-BNP 4040
-COVID-negative, influenza AMB negative
-Chest x-ray with impression of Cardiomegaly with mild pulmonary edema, moderate right pleural effusion and small-moderate left pleural effusion
-Echo Jun 2024: Normal biventricular size and systolic function without regional wall motion abnormality. Mild concentric left ventricular hypertrophy. Stage I diastolic dysfunction. Mild mitral regurgitation.
-IV Lasix continued
-Strict KIMBERLY
-Daily weight, fluid restriction
-Cardiology consult
# Anemia of chronic disease
-Hemoglobin stable at 10.7
-No active bleeding
To continue to monitor
#CVA with Residual Right Hemiparesis (Aug 2023)
#Paroxysmal Atrial Fibrillation/Flutter
-EKG in A-fib, heart rate controlled
-Metoprolol continued
-Continue Eliquis for anticoagulation
#Essential Hypertension
-Norvasc continued
#Hyperlipidemia
-Continue Crestor
#Glaucoma
-Continue latanoprost and timolol drops
DVT Prophylaxis: Eliquis
Code Status: DNR
--- NOTE | 2024-08-17 19:05 | W.PN.UPDATE ---
Update Note
Progress Note Update
This is an addendum to the H&P written by Aster Wang in 08/17/2024.� Patient seen and examined independently with BLOW DOWN OPERATOR.
89-year-old female past medical history of paroxysmal atrial fibrillation/flutter on Eliquis, chronic HFpEF, hypertension, hyperlipidemia, glucoma, CVA with residual right hemiparesis, presenting with hypoxemia from retirement and 6 pounds weight
gain.
Cardiac BNP of 4000 from 6000 previously.� Chest x-ray shows cardiomegaly with mild pulm edema, moderate right pleural effusion small moderate left pleural effusion.
Presentation consistent with acute CHF exacerbation.� 40 IV Lasix daily.� Cardiology consulted.
--- NOTE | 2024-08-17 21:40 | PTCARENOTE ---
Pt received from ED at 2130. Pt pleasant, AAOX3, VSS, and pulled over into room bed from stretcher. Pt on 4L O2. Pt does not complain of any pain at this time. Pt receptive to room and call jacinto. Pt bed in lowest position and call jacinto within reach.
Pt educated on importance of call jacinto usage, pt relays understanding and cooperation. Will continue with current plan of care.
[2024-08-17] MEDS: ELIQUIS 2.5 MG PO (22:58)
[2024-08-17] MEDS: TYLENOL 975 MG PO (22:58)
[2024-08-17] MEDS: CRESTOR 5 MG PO (22:58)
[2024-08-17] MEDS: XALATAN OPHTHALMIC SOLUTION 1 DROP BOTH EYES (22:59)
[2024-08-18] VITALS (9 sets, daily range): BP systolic 99–124; BP diastolic 65–76; PULSE 72–102; O2SAT 93; BMI 20.2
[2024-08-18] MEDS: TOPROL XL 100 MG PO (07:56)
[2024-08-18] MEDS: VITAMIN B-12 100 MCG PO (07:56)
[2024-08-18] MEDS: TYLENOL 975 MG PO ×3 (07:56→22:27)
[2024-08-18] MEDS: FARXIGA 10 MG PO (07:57)
[2024-08-18] MEDS: ELIQUIS 2.5 MG PO ×2 (07:57→22:27)
[2024-08-18] MEDS: NORVASC 5 MG PO (07:57)
[2024-08-18] MEDS: LASIX 40 MG IV (07:57)
[2024-08-18] MEDS: TIMOPTIC 0.5% OPHTHALMIC SOLUTION 1 DROP BOTH EYES (07:59)
[2024-08-18] MEDS: LIDOCAINE 4% PATCH 1 PATCH TOPICAL (07:59)
[2024-08-18 09:04] LABS: Hematocrit 32.4 % (37.0-47.0); Hemoglobin 9.9 g/dL (12.0-16.0); Mean Corp Hgb Conc. 30.6 g/dL (33.0-37.0); Mean Corpuscular Volume 88.3 fL (81.0-99.0); Mean Platelet Volume 9.5 fL (7.4-10.4); Platelet Count 324 10^3/uL (130-400); Red Blood Cell Count 3.67 10^6/uL (4.20-5.40); Red Cell Dist. Width 14.4 % (11.5-14.5); White Blood Cell Count 5.9 10^3/uL (4.8-10.8)
--- NOTE | 2024-08-18 09:40 | W.PN.HOSP.TC ---
Today's Communication/Plan
-
IV Lasix
Assessment / Plan
Assessment / Plan
Physical exam:
General: Well Developed, Well Nourished and No Apparent Distress
HEENT: Normocephalic, Atraumatic and Moist Mucous Membranes
Respiratory: Clear to Auscultation; Negative Wheezes, Rales or Rhonchi
Cardiac: Regular Rhythm and S1/S2
GI: Soft, Nontender and Nondistended
Musculoskeletal: No Clubbing, No Cyanosis and No Edema
Neuro: Awake, Alert and Oriented
Psych: Calm
A/P:
# Acute on chronic hypoxic respiratory failure likely secondary to CHF/pleural effusion
-Patient uses 2 L at baseline, increased to 4 L
-Continue supplemental oxygen to keep sat greater than 95, wean as tolerated
-BNP 4040
-COVID-negative, influenza AMB negative
-Chest x-ray with impression of Cardiomegaly with mild pulmonary edema, moderate right pleural effusion and small-moderate left pleural effusion
-Echo Jun 2024: Normal biventricular size and systolic function without regional wall motion abnormality. Mild concentric left ventricular hypertrophy. Stage I diastolic dysfunction. Mild mitral regurgitation.
-IV Lasix 40 mg IV daily continued
-Strict KIMBERLY
-Daily weight, fluid restriction
-Cardiology consult appreciated
-Change amlodipine to Aldactone 25 mg p.o. daily
# Anemia of chronic disease
-Hemoglobin stable at 10.7--> today is 9.9
-No active bleeding
To continue to monitor
#CVA with Residual Right Hemiparesis (Aug 2023)
# Permanent Atrial Fibrillation/Flutter
-EKG in A-fib, heart rate controlled
-Metoprolol Succinate 100 mg p.o. daily continued
-Continue Eliquis 2.5 mg p.o. twice daily for anticoagulation
#Essential Hypertension
-Norvasc continued
#Hyperlipidemia
-Continue Crestor
#Glaucoma
-Continue latanoprost and timolol drops
DVT Prophylaxis: Eliquis
Code Status: DNR
Total time spent on today's encounter was 52 minutes which included time spent in counseling the patient/family regarding diagnosis and treatment plan as listed above, goals of care, and symptom management. Case was discussed with nursing staff,
specialists, and care coordinators/case management. All labs and imaging personally reviewed by me. Remainder the time spent in detailed review of previous records, lab data, imaging, and other medical provider documentation.
Anticipated Discharge: > 48 hours
Subjective/Interval History
-
Date of Service: August 18, 2024
Patient feels better overall. Less shortness of breath. No chest pain.
Objective Data
-
Labs:
Laboratory Results
08/18/24
07:57
WBC 5.9
Hgb 9.9 L
Hct 32.4 L
Plt Count 324
Sodium Pending
Potassium Pending
Chloride Pending
Carbon Dioxide Pending
BUN Pending
Creatinine Pending
Glucose Pending
Calcium Pending
Vital Signs:
Vital Signs
Temp Pulse Resp BP Pulse Ox
97.5 F 71 20 121/75 96
08/18/24 03:12 08/18/24 07:56 08/18/24 03:12 08/18/24 07:57 08/18/24 03:12
I&O
08/17/24 08/18/24 08/19/24
06:59 06:59 06:59
Intake Total 0 / 0
Output Total 1150 / 1150
Balance -1150 / -1150
[2024-08-18 09:44] LABS: Blood Urea Nitrogen 15 mg/dl (7-17); Calcium 8.7 mg/dl (8.4-10.2); Carbon Dioxide 31 mmol/L (22-30); Chloride 96 mmol/L (98-107); Estimated Creatinine Clearance 41 ml/min; Glucose 88 mg/dl (70-99); HDL Cholesterol 48 mg/dl; LDL Cholesterol, Calculated 52 mg/dl; Sodium 138 mmol/L (135-145); Total Cholesterol 121 mg/dl (50-199); Triglyceride 109 mg/dl (10-149); Very Low Density Lipoprotein 21 mg/dl (0-30); eGFR > 60.00
--- NOTE | 2024-08-18 09:52 | CON.CAR ---
Addendum entered and electronically signed by Kota Rodriguez MD 08/18/24 13:26:
I saw and examined the patient.
The MRI CT TECH's note was reviewed and I agree with the note.
Comment: 89-year-old with HFpEF, prior CVA, permanent atrial fibs/flutter on Eliquis, hypertension recurrent hospitalizations recently for CHF [facility]. She tells me she is not getting weighed daily. She does not
have any symptoms right now and is feeling fine without complaint. On exam, she has bibasilar rales, irregularly irregular rate and rhythm with a 2 out of 6 holosystolic murmur at the left lower sternal border. EKG showed atrial fibrillation with
right axis deviation. Chest x-ray image on my review showed right pleural effusion that was moderate and interstitial edema. Overall, she is in acute heart failure with preserved EF exacerbation. Continue IV Lasix with intensive monitoring. For
now we will use a single dose, this may need to be increased tomorrow. Will transition her amlodipine to Aldactone to allow for more diuresis and help with her hypokalemia. Upon discharge, it will be very important that she get weight daily.
Otherwise she is rate controlled and will continue on her anticoagulation for her permanent atrial fibrillation.
Will follow.
Original Note:
Consultation
Consultation Request
Date/Time Consultation Requested: 08/17/241902
Date/Time Consultation Performed: 08/18/24 0953
Requesting Provider: Aster Wang
Performing Provider: Annamarie MINA for Dr. Rodriguez
Reason for Consultation: CHF
Medical History
-
Chief Complaint: hypoxia
History of Present Illness:
89 y/o female with HFpEF, hx CVA, Afib/flutter on Eliquis, anemia, HTN, and HLD who presents from [place] for hypoxia. There has also been weight gain and reports of SOB. Patient denies SOB though. Of note, she was hospitalized in 05/2024 with CHF vs PNA
and treated with abx and diuretics, but not sent home on diuretics. She was admitted last month with CHF and was sent home on lasix and farxiga, and is on O2 by SD at [place]. She is admitted for diuresis. She is in no distress at the time of my
assessment.
Past Medical History
Past Medical History: Arrhythmias, CHF, HTN, Hypercholesterolemia and Other (as above)
Social History
Living: [place]
Family History
Family History: Reviewed & Not Pertinent
Allergies / Home Medications
Allergy/AdvReac Type Severity Reaction Status Date / Time
Penicillins Allergy Unknown Verified 08/02/24 11:07
sulfamethazine Allergy Unknown Verified 08/02/24 11:07
trimethoprim Allergy Unknown Verified 08/02/24 11:07
�Medication �Instructions �Recorded �Confirmed �Type
acetaminophen 325 mg tablet 975 mg PO TID Pain 06/05/24 08/17/24 History
(Tylenol)
amlodipine 5 mg tablet (Norvasc) 5 mg PO DAILY Blood Pressure 06/05/24 08/17/24 History
apixaban 2.5 mg tablet (Eliquis) 2.5 mg PO BID Blood Clot 06/05/24 08/17/24 History
Prevention/Tx
cyanocobalamin (vitamin B-12) 100 100 mcg PO DAILY Smoking Cessation 06/05/24 08/17/24 History
mcg tablet
latanoprost 0.005 % eye drops 1 drp BOTH EYES HS Eye Condition 06/05/24 08/17/24 History
loratadine 10 mg tablet (Loradamed) 10 mg PO DAILYPRN PRN allergies 06/05/24 08/17/24 History
metoprolol succinate 100 mg 100 mg PO DAILY Heart 06/05/24 08/17/24 History
tablet,extended release 24 hr Disease/Condition
(Toprol XL)
polyethylene glycol 3350 17 gram 17 g PO DAILYPRN PRN mild pain 06/05/24 08/17/24 History
oral powder packet (Miralax)
rosuvastatin 5 mg tablet (Crestor) 5 mg PO HS High Cholesterol 06/05/24 08/17/24 History
timolol maleate 0.5 % eye drops 1 drp BOTH EYES DAILY Eye Condition 06/05/24 08/17/24 History
guaifenesin 600 mg tablet, 600 mg PO [id number] PRN cough 08/02/24 08/17/24 History
extended release 12 hr
lidocaine 4 % topical patch 1 patch topical DAILY right knee 08/02/24 08/17/24 History
dapagliflozin propanediol 10 mg 10 mg PO DAILY #30 tabs 08/03/24 08/17/24 Rx
tablet (Farxiga)
furosemide 20 mg tablet 20 mg PO DAILY #30 tabs 08/05/24 08/17/24 Rx
Review of Systems
-
History Source: Patient and Other (and chart)
Constitutional: Weight Gain
Respiratory: Trouble Breathing
Physical Exam
Vital Signs
Temp Pulse Resp BP Pulse Ox
98.0 F 71 16 121/75 94
08/18/24 07:00 08/18/24 07:56 08/18/24 07:00 08/18/24 07:57 08/18/24 07:00
Lab Results
08/18/24 07:57
08/18/24 07:57
Troponin I < 0.012 ng/ml 08/17/24 13:55
Dru-L-Fpiefprdznd Pept 4040 pg/ml 08/17/24 13:55
Physical Exam
General: Well Developed and No Apparent Distress
HEENT: Normocephalic and Anicteric
Respiratory: Other (diminished to bases, on O2 by [place])
Cardiac: Regular Rhythm and Murmur (diastolic, II/)
Musculoskeletal: No Edema
Skin: Warm and Dry
Neuro: Awake and Alert
Psych: Calm
Impression / Plan
-
Tnnoj-vp-flspqgb HFpEF:
-Echo 06/07/24: EF 65-70%, mild LVH, stage I DD, severe biatrial enlargement, mild mitral regurgitation, moderate eccentric tricuspid regurgitation. PASP 45-50 mmHg.
-agree with IV diuresis, which requires intensive monitoring
-hypokalemia noted and needs to be replaced- ordered replacement
-continue Farxiga
-of note, weight 41.7 kg at d/c last admit- currently 43.8
Afib/flutter, paroxysmal:
-was in rate-controlled Afib on arrival, but now in SR
-continue metoprolol and follow telemetry
-continue Eliquis for OAC
HTN:
-on CCB and metoprolol
-monitor with diuresis
hx CVA:
-on Eliquis, statin
Data Reviewed
-
EKG: Tracing Personally Visualized and interpreted (AFIB 70 BPM)
Radiology: Report Reviewed by me (CXR: Cardiomegaly with mild pulmonary edema, moderate right pleural effusion and small-moderate left pleural effusion)
Medical Tests (Nuc Med, Echo etc): Report Reviewed by me (echo as noted)
Labs: Labs Reviewed by me
[2024-08-18 09:56] LABS: TSH Reflex To Free T4 1.83 uIU/ml (0.47-4.68)
[2024-08-18] MEDS: KCL 40 MEQ PO (10:11)
[2024-08-18] MEDS: ALDACTONE 25 MG PO (13:09)
--- NOTE | 2024-08-18 13:32 | CM ---
Addendum entered by Parul Barron 08/19/24 10:20:
PT recommends home health for PT when she returns to [facility]
Original Note:
custodial manager reviewed patient's chart and met with patient and patient lives with at [facility] [address], patient required assist of 1-2 with transfers, to w/c at [facility], patient is on oxygen at 2 liters.
PCP: Venancio Grace
Pharmacy: [facility].
[facility]
Report [phone]

Plan; Back to [facility] when stable, patient is currently on 4 liters of oxygen, on 2 at baseline,
[2024-08-18] MEDS: XALATAN OPHTHALMIC SOLUTION 1 DROP BOTH EYES (22:27)
[2024-08-18] MEDS: CRESTOR 5 MG PO (22:29)
[2024-08-19 03:20] VITALS: BP 103/68
[2024-08-19 06:00] VITALS: BMI 19.4
[2024-08-19 07:30] VITALS: BP 132/74
[2024-08-19 08:15] LABS: Hematocrit 31.9 % (37.0-47.0); Hemoglobin 9.7 g/dL (12.0-16.0); Mean Corp Hgb Conc. 30.4 g/dL (33.0-37.0); Mean Corpuscular Hgb 26.8 pg (27.0-31.0); Mean Corpuscular Volume 88.1 fL (81.0-99.0); Mean Platelet Volume 9.5 fL (7.4-10.4); Platelet Count 313 10^3/uL (130-400); Red Blood Cell Count 3.62 10^6/uL (4.20-5.40); Red Cell Dist. Width 14.4 % (11.5-14.5); White Blood Cell Count 4.5 10^3/uL (4.8-10.8)
[2024-08-19 08:33] LABS: Blood Urea Nitrogen 16 mg/dl (7-17); Calcium 8.6 mg/dl (8.4-10.2); Carbon Dioxide 30 mmol/L (22-30); Chloride 100 mmol/L (98-107); Estimated Creatinine Clearance 41 ml/min; Glucose 91 mg/dl (70-99); Potassium 3.6 mmol/L (3.5-5.1); Sodium 138 mmol/L (135-145); eGFR > 60.00
--- NOTE | 2024-08-19 08:55 | W.PN.CD ---
Today's Communication / Plan
-
weight 41.8kg similar to prior dischharge weight. Patient still on 4 liters
i/o -1100
rosie O2 as tolerated
monitor weights, cr and K with diuresis and Spironolacone
will also need monitoring of labs post discharge
Impression / Plan
-
Suflr-ni-czczzyq HFpEF:
-Echo 06/07/24: EF 65-70%, mild LVH, stage I DD, severe biatrial enlargement, mild mitral regurgitation, moderate eccentric tricuspid regurgitation. PASP 45-50 mmHg.
-agree with IV diuresis, which requires intensive monitoring
-monitor potasssium with diuresis and additon of Spironolactine
-continue Farxiga
-of note, weight 41.7 kg at d/c last admit- currently 41.8
Afib/flutter, paroxysmal:
-was in rate-controlled Afib on arrival, but now in SR
-continue metoprolol and follow telemetry
-continue Eliquis for OAC
HTN:
-on CCB and metoprolol
-monitor with diuresis
hx CVA:
-on Eliquis, statin
Physical Exam
Vital Signs/Labs
Vital Signs
Temp Pulse Resp BP Pulse Ox
97.7 F 80 22 132/74 98
08/19/24 07:30 08/19/24 07:30 08/19/24 07:30 08/19/24 07:30 08/19/24 07:30
08/18/24 08/19/24 08/20/24
06:59 06:59 06:59
Actual Weight 43.817 kg 41.986 kg
08/19/24 07:00
08/19/24 07:00
Magnesium 2.0 mg/dl (1.6-2.3) 08/19/24 07:00
Triglycerides 109 mg/dl (10-149) 08/18/24 07:57
LDL Cholesterol, Calc 52 mg/dl 08/18/24 07:57
VLDL Cholesterol, Calc 21 mg/dl (0-30) 08/18/24 07:57
HDL Cholesterol 48 mg/dl 08/18/24 07:57
08/17/24
13:55
Fqj-C-Bcqvreszzxk Pept 4040
LAB Results
08/17/24
13:55
Troponin I < 0.012
Physical Exam
Constitutional: No acute distress
Cardiovascular: Rhythm & rate is regular
Respiratory: Wheeze Absent and Rhonchi Absent
GI: Soft, Non tender and Normal bowel sounds
Neuro/Psych: Alert and Oriented
Data Reviewed
-
Date of Service: August 19, 2024
Medical Decision Making: Reviewed Test Results
Echo: Report Reviewed by me
Medical Tests (PFT, Pathology etc): Report Reviewed by me
Labs: Labs Reviewed by me
--- NOTE | 2024-08-19 09:02 | W.PN.HOSP.TC ---
Addendum entered and electronically signed by Dwayne Prasad MD 08/19/24 14:02:
Permanent atrial fibrillation
Addendum entered and electronically signed by Dwayne Prasad MD 08/19/24 14:00:
Underweight
Original Note:
Today's Communication/Plan
-
IV Lasix
Assessment / Plan
Assessment / Plan
Physical exam:
General: Well Developed, Well Nourished and No Apparent Distress
HEENT: Normocephalic, Atraumatic and Moist Mucous Membranes
Respiratory: Clear to Auscultation; Negative Wheezes, Rales or Rhonchi
Cardiac: Regular Rhythm and S1/S2
GI: Soft, Nontender and Nondistended
Musculoskeletal: No Clubbing, No Cyanosis and No Edema
Neuro: Awake, Alert and Oriented
Psych: Calm
A/P:
# Acute on chronic hypoxic respiratory failure likely secondary to CHF/pleural effusion
-Titrate oxygen as able
-Will repeat chest x-ray in a.m.
-Continue supplemental oxygen to keep sat greater than 95, wean as tolerated
-BNP 4040
-COVID-negative, influenza AMB negative
-Chest x-ray with impression of Cardiomegaly with mild pulmonary edema, moderate right pleural effusion and small-moderate left pleural effusion
-Echo Jun 2024: Normal biventricular size and systolic function without regional wall motion abnormality. Mild concentric left ventricular hypertrophy. Stage I diastolic dysfunction. Mild mitral regurgitation.
-IV Lasix 40 mg IV daily continued
-Strict KIMBERLY
-Daily weight, fluid restriction
-Cardiology consult appreciated
-Change amlodipine to Aldactone 25 mg p.o. daily
# Anemia of chronic disease
-Hemoglobin stable at 10.7--> today is 9.9
-No active bleeding
To continue to monitor
#CVA with Residual Right Hemiparesis (Aug 2023)
# Permanent Atrial Fibrillation/Flutter
-EKG in A-fib, heart rate controlled
-Metoprolol Succinate 100 mg p.o. daily continued
-Continue Eliquis 2.5 mg p.o. twice daily for anticoagulation
#Essential Hypertension
-Norvasc continued
#Hyperlipidemia
-Continue Crestor
#Glaucoma
-Continue latanoprost and timolol drops
DVT Prophylaxis: Eliquis
Code Status: DNR
Total time spent on today's encounter was 52 minutes which included time spent in counseling the patient/family regarding diagnosis and treatment plan as listed above, goals of care, and symptom management. Case was discussed with nursing staff,
specialists, and care coordinators/case management. All labs and imaging personally reviewed by me. Remainder the time spent in detailed review of previous records, lab data, imaging, and other medical provider documentation.
Anticipated Discharge: 24 - 48 hours
Subjective/Interval History
-
Date of Service: August 19, 2024
Patient still having some shortness of breath and peripheral edema. No chest pain. Afebrile
Objective Data
-
Labs:
Laboratory Results
08/19/24
07:00
WBC 4.5 L
Hgb 9.7 L
Hct 31.9 L
Plt Count 313
Sodium 138
Potassium 3.6
Chloride 100
Carbon Dioxide 30
BUN 16
Creatinine 0.5 L
Glucose 91
Calcium 8.6
Vital Signs:
Vital Signs
Temp Pulse Resp BP Pulse Ox
97.7 F 80 22 132/74 98
08/19/24 07:30 08/19/24 07:30 08/19/24 07:30 08/19/24 07:30 08/19/24 07:30
I&O
08/18/24 08/19/24 08/20/24
06:59 06:59 06:59
Intake Total 0 / 0 120 / 120
Output Total 1150 / 1150
Balance -1150 / -1150 120 / 120
[2024-08-19] MEDS: TOPROL XL PO (10:15)
[2024-08-19] MEDS: TYLENOL 975 MG PO ×3 (10:15→21:15)
[2024-08-19] MEDS: ELIQUIS 2.5 MG PO ×2 (10:15→21:15)
[2024-08-19] MEDS: TIMOPTIC 0.5% OPHTHALMIC SOLUTION 1 DROP BOTH EYES (10:16)
[2024-08-19] MEDS: LIDOCAINE 4% PATCH 1 PATCH TOPICAL (10:16)
[2024-08-19] MEDS: LASIX 40 MG IV (10:17)
[2024-08-19] MEDS: ALDACTONE 25 MG PO (10:20)
[2024-08-19] MEDS: VITAMIN B-12 100 MCG PO (10:20)
--- NOTE | 2024-08-19 10:21 | CM ---
Addendum entered by Parul Barron 08/19/24 15:52:
CM spoke with [facility] intake via phone; Health Information Specialist reported that patient was current with the agency for PT; and accepted referral to resume services when discharged back to [facility]
At time of discharge, community outreach specialist needs to send Discharge Summary to [facility] via
Original Note:
PT recommends home health for PT [facility]; met with patient; she is agreeable
CM spoke also with patient's primary contact/son, Toni, via phone. He reported that patient was participating in PT w/ [facility] prior to admission; and agreeable to resumption of services. Referral for home PT sent to [facility] via [facility]
Patient is WC bound; per son, family unable to provide transportation when stable to return to [facility]
[2024-08-19] MEDS: FARXIGA 10 MG PO (10:22)
--- NOTE | 2024-08-19 11:36 | PN.CDI ---
CDI
- -
CDI:
Physician Documentation Request
Admit Date: 08/17/24 19:16
Dear Doctor Prasad,
Please review the following and provide your response in the progress notes.
Clinical Indicators:
- 08/19 Cardiology indicates paroxysmal atrial fibrillation/flutter
- 08/18 PN 'Permanent Atrial Fibrillation/Flutter'
- 08/17 EKG with atrial fibrillation
If possible, please provide further specificity regarding atrial fibrillation, such as:
Paroxysmal atrial fibrillation - terminates spontaneously or with intervention within 7 days of onset
Persistent atrial fibrillation - episodes of continuous AF that last more than 7 days and do not self-terminate
Permanent atrial fibrillation - when a decision has been made to accept the presence of AF and there is no further attempt to restore or maintain sinus rhythm
Other - please specify
Use of terms such as suspected, likely, concern for, or probable (associated with a specific diagnosis that is being evaluated, monitored, or treated as if it exists) are acceptable and can be coded in the inpatient setting, when documented at the
time of discharge.
Thank you,
Chacho Becker RN
CDI Specialist
Please use your independent medical judgment in providing your response.
--- NOTE | 2024-08-19 11:39 | PN.CDI ---
CDI
- -
CDI:
Physician Documentation Request
Admit Date: 08/17/24 19:16
Dear Doctor Shanice,
Please review the following and provide your response in the progress notes.
Clinical Indicators:
Height: 4'10
Weight: 92 lbs
BMI: 19.3
If possible, please provide an associated diagnosis related to the abnormal BMI, such as:
Underweight
Cachectic
Other (please specify)
Use of terms such as suspected, likely, concern for, or probable (associated with a specific diagnosis that is being evaluated, monitored, or treated as if it exists) are acceptable and can be coded in the inpatient setting, when documented at the
time of discharge.
Thank you,
Chacho Becker RN
CDI Specialist
Please use your independent medical judgment in providing your response.
[2024-08-19 15:00] VITALS: BP 116/74
[2024-08-19 19:00] VITALS: BP 114/71
[2024-08-19] MEDS: XALATAN OPHTHALMIC SOLUTION 1 DROP BOTH EYES (21:15)
[2024-08-19] MEDS: CRESTOR 5 MG PO (21:17)
[2024-08-19 23:00] VITALS: BP 132/76
[2024-08-20 03:00] VITALS: BP 111/72
[2024-08-20 05:39] VITALS: BMI 19.5
[2024-08-20 07:30] VITALS: BP 128/81
[2024-08-20 08:20] LABS: Hematocrit 35.7 % (37.0-47.0); Hemoglobin 10.5 g/dL (12.0-16.0); Mean Corp Hgb Conc. 29.4 g/dL (33.0-37.0); Mean Corpuscular Hgb 26.2 pg (27.0-31.0); Mean Platelet Volume 9.5 fL (7.4-10.4); Platelet Count 352 10^3/uL (130-400); Red Blood Cell Count 4.01 10^6/uL (4.20-5.40); Red Cell Dist. Width 14.5 % (11.5-14.5); White Blood Cell Count 5.3 10^3/uL (4.8-10.8)
--- NOTE | 2024-08-20 08:31 | W.PN.CD ---
Today's Communication / Plan
-
- Patient has diuresed well with Lasix 40 mg IV daily; can transition to Lasix 40 mg PO daily, which should be home regimen.
- No further cardiac recommendations at this time; outpatient follow-up with cardiology.
Impression / Plan
-
Rtfld-ol-becqztq HFpEF:
-Echo 06/07/24: EF 65-70%, mild LVH, stage I DD, severe biatrial enlargement, mild mitral regurgitation, moderate eccentric tricuspid regurgitation. PASP 45-50 mmHg.
-Patient has diuresed well with Lasix 40 mg IV daily; can transition to Lasix 40 mg PO daily, which should be home regimen.
-Continue Farxiga and spironolactone.
Afib/flutter, paroxysmal:
Stable
-Continue current dose of Toprol-XL
-Continue Eliquis.
HTN:
-Stable/controlled
-Continue current doses of metoprolol succinate and spironolactone; transitioning to PO Lasix as above.
hx CVA:
-Continue Eliquis and rosuvastatin.
Physical Exam
Vital Signs/Labs
Vital Signs
Temp Pulse Resp BP Pulse Ox
97.4 F 78 22 111/72 99
08/20/24 03:00 08/20/24 03:00 08/20/24 03:00 08/20/24 03:00 08/20/24 03:00
08/19/24 08/20/24 08/21/24
06:59 06:59 06:59
Actual Weight 41.986 kg 42.32 kg
08/20/24 07:00
Magnesium 2.0 mg/dl (1.6-2.3) 08/19/24 07:00
Triglycerides 109 mg/dl (10-149) 08/18/24 07:57
LDL Cholesterol, Calc 52 mg/dl 08/18/24 07:57
VLDL Cholesterol, Calc 21 mg/dl (0-30) 08/18/24 07:57
HDL Cholesterol 48 mg/dl 08/18/24 07:57
08/17/24
13:55
Kzp-Y-Mhzukpzorfs Pept 4040
LAB Results
08/17/24
13:55
Troponin I < 0.012
Physical Exam
Constitutional: No acute distress and Comfortable
EENT: Anicteric
Cardiovascular: Rhythm & rate is regular, Pedal edema is absent, Systolic murmur present (08/12) and S1S2 is normal
Respiratory: Respiratory effort normal and Rhonchi Present
GI: Soft
Neuro/Psych: AO x 3
Other: Skin (Warm, dry)
Data Reviewed
-
Date of Service: August 20, 2024
EKG: Tracing Personally Visualized and interpreted (Telemetry: Sinus rhythm)
Labs: Labs Reviewed by me
[2024-08-20] MEDS: TOPROL XL 100 MG PO (08:33)
[2024-08-20] MEDS: LASIX 40 MG IV (08:33)
[2024-08-20] MEDS: LIDOCAINE 4% PATCH 1 PATCH TOPICAL (08:33)
[2024-08-20] MEDS: ELIQUIS 2.5 MG PO ×2 (08:33→20:15)
[2024-08-20] MEDS: TYLENOL 975 MG PO ×3 (08:33→21:11)
[2024-08-20] MEDS: FARXIGA 10 MG PO (08:33)
[2024-08-20] MEDS: VITAMIN B-12 100 MCG PO (08:34)
[2024-08-20] MEDS: TIMOPTIC 0.5% OPHTHALMIC SOLUTION 1 DROP BOTH EYES (08:34)
[2024-08-20] MEDS: ALDACTONE 25 MG PO (08:34)
[2024-08-20 09:04] LABS: Blood Urea Nitrogen 13 mg/dl (7-17); Calcium 9.1 mg/dl (8.4-10.2); Carbon Dioxide 32 mmol/L (22-30); Chloride 95 mmol/L (98-107); Estimated Creatinine Clearance 41 ml/min; Glucose 80 mg/dl (70-99); Potassium 3.7 mmol/L (3.5-5.1); Sodium 136 mmol/L (135-145); eGFR > 60.00
--- NOTE | 2024-08-20 09:18 | W.PN.HOSP.TC ---
Today's Communication/Plan
-
Continue diuresis
Assessment / Plan
Assessment / Plan
Physical exam:
General: Well Developed, Well Nourished and No Apparent Distress
HEENT: Normocephalic, Atraumatic and Moist Mucous Membranes
Respiratory: Clear to Auscultation; Negative Wheezes, Rales or Rhonchi
Cardiac: Regular Rhythm and S1/S2
GI: Soft, Nontender and Nondistended
Musculoskeletal: No Clubbing, No Cyanosis and No Edema
Neuro: Awake, Alert and Oriented
Psych: Calm
A/P:
# Acute on chronic hypoxic respiratory failure likely secondary to CHF/pleural effusion
-Titrate oxygen as able
-Follow-up repeat chest x-ray today and he shows improvement on her CHF
-Continue supplemental oxygen to keep sat greater than 95, wean as tolerated
-BNP 4040
-COVID-negative, influenza AMB negative
-Chest x-ray with impression of Cardiomegaly with mild pulmonary edema, moderate right pleural effusion and small-moderate left pleural effusion
-Echo Jun 2024: Normal biventricular size and systolic function without regional wall motion abnormality. Mild concentric left ventricular hypertrophy. Stage I diastolic dysfunction. Mild mitral regurgitation.
-IV Lasix 40 mg IV daily continued and will switch to oral Lasix tomorrow
-Strict KMIBERLY
-Daily weight, fluid restriction
-Cardiology consult appreciated
-Change amlodipine to Aldactone 25 mg p.o. daily
# Anemia of chronic disease
-Hemoglobin stable at 10.7--> today is 10.5
-No active bleeding
To continue to monitor
#CVA with Residual Right Hemiparesis (Aug 2023)
# Permanent Atrial Fibrillation/Flutter
-EKG in A-fib, heart rate controlled
-Metoprolol Succinate 100 mg p.o. daily continued
-Continue Eliquis 2.5 mg p.o. twice daily for anticoagulation
#Essential Hypertension
-Norvasc continued
#Hyperlipidemia
-Continue Crestor
#Glaucoma
-Continue latanoprost and timolol drops
DVT Prophylaxis: Eliquis
Code Status: DNR
Anticipated Discharge: Within 24 hours
Subjective/Interval History
-
Date of Service: August 20, 2024
Patient feeling better, less shortness of breath. No chest pain
Objective Data
-
Labs:
Laboratory Results
08/20/24
07:00
WBC 5.3
Hgb 10.5 L
Hct 35.7 L
Plt Count 352
Sodium 136
Potassium 3.7
Chloride 95 L
Carbon Dioxide 32 H
BUN 13
Creatinine 0.5 L
Glucose 80
Calcium 9.1
Vital Signs:
Vital Signs
Temp Pulse Resp BP Pulse Ox
97.7 F 87 18 128/81 97
08/20/24 07:30 08/20/24 07:30 08/20/24 07:30 08/20/24 07:30 08/20/24 07:30
I&O
08/19/24 08/20/24 08/21/24
06:59 06:59 06:59
Intake Total 120 / 120 600 / 600
Balance 120 / 120 600 / 600
[2024-08-20 15:54] VITALS: BP 114/70
[2024-08-20 19:20] VITALS: BP 100/65
[2024-08-20] MEDS: CRESTOR 5 MG PO (21:12)
[2024-08-20] MEDS: XALATAN OPHTHALMIC SOLUTION 1 DROP BOTH EYES (21:12)
[2024-08-20 23:22] VITALS: BP 107/59
[2024-08-21 03:10] VITALS: BP 128/71
[2024-08-21 06:00] VITALS: BMI 18.3
[2024-08-21 07:45] VITALS: BP 131/81
[2024-08-21] MEDS: FARXIGA 10 MG PO (07:47)
[2024-08-21] MEDS: ALDACTONE 25 MG PO (07:47)
[2024-08-21] MEDS: ELIQUIS 2.5 MG PO ×2 (07:47→20:00)
[2024-08-21] MEDS: VITAMIN B-12 100 MCG PO (07:48)
[2024-08-21] MEDS: LASIX 40 MG PO (07:48)
[2024-08-21] MEDS: TYLENOL 975 MG PO ×3 (07:48→21:21)
[2024-08-21] MEDS: TOPROL XL 100 MG PO (07:48)
[2024-08-21] MEDS: TIMOPTIC 0.5% OPHTHALMIC SOLUTION 1 DROP BOTH EYES (07:49)
[2024-08-21] MEDS: LIDOCAINE 4% PATCH 1 PATCH TOPICAL (07:49)
[2024-08-21 08:06] LABS: Glucose - Point of Care 101 mg/dl (70-99)
--- NOTE | 2024-08-21 10:03 | W.PN.HOSP.TC ---
Today's Communication/Plan
-
Discharge planning
Assessment / Plan
Assessment / Plan
Physical exam:
General: Well Developed, Well Nourished and No Apparent Distress
HEENT: Normocephalic, Atraumatic and Moist Mucous Membranes
Respiratory: Clear to Auscultation; Negative Wheezes, Rales or Rhonchi
Cardiac: Regular Rhythm and S1/S2
GI: Soft, Nontender and Nondistended
Musculoskeletal: No Clubbing, No Cyanosis and No Edema
Neuro: Awake, Alert and Oriented
Psych: Calm
A/P:
# Acute on chronic hypoxic respiratory failure likely secondary to CHF/pleural effusion
-Titrate oxygen as able
-Follow-up repeat chest x-ray today and he shows improvement on her CHF
-Continue supplemental oxygen to keep sat greater than 95, wean as tolerated
-BNP 4040
-COVID-negative, influenza AMB negative
-Chest x-ray with impression of Cardiomegaly with mild pulmonary edema, moderate right pleural effusion and small-moderate left pleural effusion
-Echo Jun 2024: Normal biventricular size and systolic function without regional wall motion abnormality. Mild concentric left ventricular hypertrophy. Stage I diastolic dysfunction. Mild mitral regurgitation.
-Currently on oral Lasix 40 mg p.o. daily
-Strict KIMBERLY
-Daily weight, fluid restriction
-Cardiology consult appreciated
-Change amlodipine to Aldactone 25 mg p.o. daily
-Medically ready for discharge. Discussed with family preservation caseworker and might not be able to take her back over the weekend.
-Discharge when facility able to take her back.
# Respiratory insufficiency
Continue supplemental oxygen as needed
# Anemia of chronic disease
-Hemoglobin stable at 10.7--> last hemoglobin is 10.5
-No active bleeding
To continue to monitor
#CVA with Residual Right Hemiparesis (Aug 2023)
# Permanent Atrial Fibrillation/Flutter
-EKG in A-fib, heart rate controlled
-Metoprolol Succinate 100 mg p.o. daily continued
-Continue Eliquis 2.5 mg p.o. twice daily for anticoagulation
#Essential Hypertension
-Norvasc continued
#Hyperlipidemia
-Continue Crestor
#Glaucoma
-Continue latanoprost and timolol drops
DVT Prophylaxis: Eliquis
Code Status: DNR
Anticipated Discharge: 24 - 48 hours
Subjective/Interval History
-
Date of Service: August 21, 2024
Patient feels better. On 2 L of oxygen.
Objective Data
-
Labs:
Laboratory Results
08/21/24
09:23
Sodium Pending
Potassium Pending
Chloride Pending
Carbon Dioxide Pending
BUN Pending
Creatinine Pending
Glucose Pending
Calcium Pending
Vital Signs:
Vital Signs
Temp Pulse Resp BP Pulse Ox
97.7 F 73 18 131/81 98
08/21/24 07:45 08/21/24 07:48 08/21/24 07:45 08/21/24 07:48 08/21/24 07:45
I&O
08/20/24 08/21/24 08/22/24
06:59 06:59 06:59
Intake Total 600 / 600 890 / 890 120 / 120
Balance 600 / 600 890 / 890 120 / 120
[2024-08-21 10:55] LABS: Blood Urea Nitrogen 16 mg/dl (7-17); Calcium 9.2 mg/dl (8.4-10.2); Carbon Dioxide 36 mmol/L (22-30); Chloride 93 mmol/L (98-107); Estimated Creatinine Clearance 40 ml/min; Glucose 102 mg/dl (70-99); Potassium 3.7 mmol/L (3.5-5.1); Sodium 136 mmol/L (135-145); eGFR > 60.00
--- NOTE | 2024-08-21 12:29 | CM ---
CM reviewed chart, patient medically stable to return to [facility], multiple calls left to [facility], unable to leave a voicemail. Patient will require ambulance transport upon discharge. CM will continue to contact facility to confirm ability to
accept patient.
Plan; return to [facility] with [facility], ambulance transport required, forms on chart.
[facility]
Report [phone]

[facility] [phone]
--- NOTE | 2024-08-21 12:51 | PTCARENOTE ---
Assumed care of pt from previous nurse. Pt denies pain. Pt lungs are diminished, crackles in the bases. Pt 02 at 2L's. sating 98%. call jacinto is within reach, pt rings soila. will cont to monitor.
[2024-08-21] MEDS: CRESTOR 5 MG PO (21:21)
[2024-08-21] MEDS: XALATAN OPHTHALMIC SOLUTION 1 DROP BOTH EYES (21:21)
[2024-08-21 23:00] VITALS: BP 123/65
[2024-08-22 04:31] VITALS: BMI 18.3
[2024-08-22 05:10] LABS: Blood Urea Nitrogen 14 mg/dl (7-17); Carbon Dioxide 32 mmol/L (22-30); Chloride 94 mmol/L (98-107); Estimated Creatinine Clearance 40 ml/min; Glucose 93 mg/dl (70-99); Potassium 3.3 mmol/L (3.5-5.1); Sodium 134 mmol/L (135-145); eGFR > 60.00
[2024-08-22 07:48] VITALS: BP 124/66
[2024-08-22] MEDS: LASIX 40 MG PO (08:43)
[2024-08-22] MEDS: ALDACTONE 25 MG PO (08:43)
[2024-08-22] MEDS: FARXIGA 10 MG PO (08:43)
[2024-08-22] MEDS: VITAMIN B-12 100 MCG PO (08:44)
[2024-08-22] MEDS: TOPROL XL 100 MG PO (08:44)
[2024-08-22] MEDS: TYLENOL 975 MG PO ×3 (08:44→20:32)
[2024-08-22] MEDS: ELIQUIS 2.5 MG PO ×2 (08:44→20:32)
[2024-08-22] MEDS: TIMOPTIC 0.5% OPHTHALMIC SOLUTION 1 DROP BOTH EYES (08:45)
[2024-08-22] MEDS: LIDOCAINE 4% PATCH 1 PATCH TOPICAL (08:45)
--- NOTE | 2024-08-22 08:51 | W.PN.HOSP.TC ---
Today's Communication/Plan
-
Replete potassium. Continue oral diuretics. Discharge planning
Assessment / Plan
Assessment / Plan
Physical exam:
General: Well Developed, Well Nourished and No Apparent Distress
HEENT: Normocephalic, Atraumatic and Moist Mucous Membranes
Respiratory: Clear to Auscultation; Negative Wheezes, Rales or Rhonchi
Cardiac: Regular Rhythm and S1/S2
GI: Soft, Nontender and Nondistended
Musculoskeletal: No Clubbing, No Cyanosis and No Edema
Neuro: Awake, Alert and Oriented
Psych: Calm
A/P:
# Acute on chronic hypoxic respiratory failure likely secondary to CHF/pleural effusion
-Titrate oxygen as able
-Follow-up repeat chest x-ray today and he shows improvement on her CHF
-Continue supplemental oxygen to keep sat greater than 95, wean as tolerated
-BNP 4040
-COVID-negative, influenza AMB negative
-Chest x-ray with impression of Cardiomegaly with mild pulmonary edema, moderate right pleural effusion and small-moderate left pleural effusion
-Echo Jun 2024: Normal biventricular size and systolic function without regional wall motion abnormality. Mild concentric left ventricular hypertrophy. Stage I diastolic dysfunction. Mild mitral regurgitation.
-Currently on oral Lasix 40 mg p.o. daily
-Strict KIMBERLY
-Daily weight, fluid restriction
-Cardiology consult appreciated
-Change amlodipine to Aldactone 25 mg p.o. daily
-Medically ready for discharge. Discussed with manager rn case and might not be able to take her back over the weekend.
-Discharge when facility able to take her back.
# Respiratory insufficiency
Continue supplemental oxygen as needed
# Anemia of chronic disease
-Hemoglobin stable at 10.7--> last hemoglobin is 10.5
-No active bleeding
To continue to monitor
#Hypokalemia
Replete and trend
#Hyponatremia
Mild
Monitor
#CVA with Residual Right Hemiparesis (Aug 2023)
# Permanent Atrial Fibrillation/Flutter
-EKG in A-fib, heart rate controlled
-Metoprolol Succinate 100 mg p.o. daily continued
-Continue Eliquis 2.5 mg p.o. twice daily for anticoagulation
#Essential Hypertension
-Norvasc continued
#Hyperlipidemia
-Continue Crestor
#Glaucoma
-Continue latanoprost and timolol drops
DVT Prophylaxis: Eliquis
Code Status: DNR
Anticipated Discharge: Within 24 hours
Subjective/Interval History
-
Date of Service: August 22, 2024
Patient doing well overall. No shortness of breath. No chest pain. On supplemental oxygen.
Objective Data
-
Labs:
Laboratory Results
08/22/24
04:21
Sodium 134 L
Potassium 3.3 L
Chloride 94 L
Carbon Dioxide 32 H
BUN 14
Creatinine 0.5 L
Glucose 93
Calcium 9.0
Vital Signs:
Vital Signs
Temp Pulse Resp BP Pulse Ox
97.5 F 71 18 124/66 97
08/22/24 07:48 08/22/24 08:44 08/22/24 07:48 08/22/24 08:44 08/22/24 07:48
I&O
08/21/24 08/22/24 08/23/24
06:59 06:59 06:59
Intake Total 890 / 890 600 / 600
Balance 890 / 890 600 / 600
[2024-08-22] MEDS: KCL 40 MEQ PO (09:29)
[2024-08-22 15:14] VITALS: BP 113/70
[2024-08-22] MEDS: XALATAN OPHTHALMIC SOLUTION 1 DROP BOTH EYES (20:32)
[2024-08-22] MEDS: CRESTOR 5 MG PO (20:32)
[2024-08-22 23:12] VITALS: BP 113/60
[2024-08-23 06:00] VITALS: BMI 18.3
--- NOTE | 2024-08-23 06:47 | W.PN.HOSP.TC ---
Today's Communication/Plan
-
discharge pending home facility acceptance
Assessment / Plan
Assessment / Plan
Physical exam:
General: Well Developed, Well Nourished and No Apparent Distress
HEENT: Normocephalic, Atraumatic and Moist Mucous Membranes
Respiratory: Clear to Auscultation; Negative Wheezes, Rales or Rhonchi
Cardiac: Regular Rhythm and S1/S2
GI: Soft, Nontender and Nondistended
Musculoskeletal: No Clubbing, No Cyanosis and No Edema
Neuro: Awake, Alert and Oriented
Psych: Calm
A/P: 89F HTN CVA afib here for acute on chronic respiratory failure 2/2 acute on chronic HFpEF
# Acute on chronic hypoxic respiratory failure likely secondary to CHF/pleural effusion
-weaned down to baseline 2L
-Chest x-ray with impression of Cardiomegaly with mild pulmonary edema, moderate right pleural effusion and small-moderate left pleural effusion
-Following diuresis, repeat chest x-ray showed improvement pulm Edema
-BNP 4040
-COVID negative
-Echo Jun 2024: Normal biventricular size and systolic function without regional wall motion abnormality. Mild concentric left ventricular hypertrophy. Stage I diastolic dysfunction. Mild mitral regurgitation.
-Currently on oral Lasix 40 mg p.o. daily
-Strict KIMBERLY
-Daily weight, fluid restriction
-Cardiology consult appreciated
-Amlodipine changed to Aldactone 25 mg p.o. daily
-Medically stable for discharge
# Anemia of chronic disease
-H&H stable
-No active bleeding
#Hypokalemia
resolved
#Hyponatremia
resolved
#CVA with Residual Right Hemiparesis (Aug 2023)
# Permanent Atrial Fibrillation/Flutter
-EKG in A-fib, heart rate controlled
-Metoprolol Succinate 100 mg p.o. daily continued
-Continue Eliquis 2.5 mg p.o. twice daily (renally dosed due to age and weight)
#Essential Hypertension
-Norvasc switched to Aldactone as above
#Hyperlipidemia
-Continue Crestor
#Glaucoma
-Continue latanoprost and timolol drops
DVT Prophylaxis: Eliquis
Code Status: DNR
Medically stable for discharge back to [facility] pending facility acceptance
discussed with patient and patient's nephew NICOLASA Toni
Total Time Preparing Discharge ___40____ minutes including examination of the patient, summary of the hospital stay, instructions for continuing care to all relevant caregivers; and preparation of discharge records, prescriptions, and referral
forms if necessary.
Anticipated Discharge: Today
Subjective/Interval History
-
Date of Service: August 23, 2024
No acute distress sitting up comfortably in bed. Overall reports feeling well. Denies new acute issues. Eager to go home.
Objective Data
-
Labs:
Laboratory Results
08/23/24
06:00
Sodium Pending
Potassium Pending
Chloride Pending
Carbon Dioxide Pending
BUN Pending
Creatinine Pending
Glucose Pending
Calcium Pending
Vital Signs:
Vital Signs
Temp Pulse Resp BP Pulse Ox
97.9 F 58 16 113/60 99
08/22/24 23:12 08/22/24 23:12 08/22/24 23:12 08/22/24 23:12 08/22/24 23:59
I&O
08/21/24 08/22/24 08/23/24
06:59 06:59 06:59
Intake Total 890 / 890 600 / 600 600 / 600
Balance 890 / 890 600 / 600 600 / 600
[2024-08-23] MEDS: TYLENOL 975 MG PO ×3 (07:40→21:00)
[2024-08-23] MEDS: ELIQUIS 2.5 MG PO ×2 (07:41→21:00)
[2024-08-23] MEDS: VITAMIN B-12 100 MCG PO (07:41)
[2024-08-23] MEDS: ALDACTONE 25 MG PO (07:41)
[2024-08-23] MEDS: FARXIGA 10 MG PO (07:41)
[2024-08-23] MEDS: LASIX 40 MG PO (07:41)
[2024-08-23] MEDS: TOPROL XL 100 MG PO (07:41)
[2024-08-23] MEDS: TIMOPTIC 0.5% OPHTHALMIC SOLUTION 1 DROP BOTH EYES (07:42)
[2024-08-23] MEDS: LIDOCAINE 4% PATCH 1 PATCH TOPICAL (07:42)
[2024-08-23 07:45] VITALS: BP 151/71
[2024-08-23 09:45] LABS: Blood Urea Nitrogen 15 mg/dl (7-17); Calcium 9.6 mg/dl (8.4-10.2); Carbon Dioxide 33 mmol/L (22-30); Chloride 93 mmol/L (98-107); Estimated Creatinine Clearance 40 ml/min; Glucose 90 mg/dl (70-99); Potassium 4.6 mmol/L (3.5-5.1); Sodium 135 mmol/L (135-145); eGFR > 60.00
--- NOTE | 2024-08-23 11:23 | W.HF.CON ---
Heart Failure
- LV Function
Left ventricular function study result: LV Ejection fraction >/= 50% (ECHO 06/07/24)
Ejection Fraction Percentage: 65-70
- ARNI
Patient already on ARNI: No
Heart Failure ARNI Not Indicated: LV Ejection Fraction >/= 40%
- ACEI/ARB
Patient already on ACEI/ARB: No
Heart Failure ACEI/ARB Not Indicated: LV Ejection Fraction > 40%
- Beta Cydney
Patient already on Evidence Based Beta Cydney: Yes
- Mineralocorticord Receptor Antagonist
Patient already on MRA: Yes
- SGLT-2 Inhibitor
Patient already on SGLT-2 Inhibitor: Yes
- Afib Anticoagulation
Patient already on Anticoagulation for Afib: Yes
- NYHA CHF Classification
NYHA CHF Classification Level: Class III - Symptoms w/ min exertion, interferes w/ nml daily activity
- ACC/AHA Stage
ACC/AHA Stage: Stage C: Symptomatic Heart Failure
--- NOTE | 2024-08-23 11:37 | CM ---
Addendum entered by Gloria Persaud 08/23/24 15:22:
Per Amrita admissions at [facility] they can accept patient tomorrow morning, physician made aware. Patient needs ambulance transport to [facility].
Original Note:
software design manager reviewed patient's chart and reached out to [facility] and left message for a return call from [facility].
Plan; return to [facility] with [facility], ambulance transport required, forms on chart.
[facility]
Report [phone]

[phone]
--- NOTE | 2024-08-23 14:14 | W.DCSUMMARY ---
Discharge Summary
Discharge Data
Date of Admission: 08/17/24
Date of Discharge: 08/23/24
-
Pending Results: No
Hospital Course
89F HTN CVA afib here for acute on chronic respiratory failure 2/2 acute on chronic HFpEF. Over the course of hospitalization, patient was weaned down to baseline oxygen supplementation 2L. Chest x-ray with impression of Cardiomegaly mild pulmonary
edema, moderate right pleural effusion and small-moderate left pleural effusion. Following IV diuresis, repeat chest x-ray showed improvement pulm Edema. BNP 4040. COVID negative
-Echo Jun 2024: Normal biventricular size and systolic function without regional wall motion abnormality. Mild concentric left ventricular hypertrophy. Stage I diastolic dysfunction. Mild mitral regurgitation. Cardio eval appreciated. Patient
was eventually transitioned back to oral Lasix with increase home dose from 20 mg to 40 mg daily. Amlodipine was changed to Aldactone 25 mg p.o. daily for hypertension and better control heart failure. Anemia of chronic disease, H&H stable, no
active bleeding noted during stay. Medically stable, patient was discharged back to [facility] assisted living with home PT/OT and outpatient follow up recommendations.
Discharge Plan
-
Patient Disposition: Assisted Living
Discharge Diagnosis/Procedures: Acute on Chronic Respiratory Failure secondary to acute on chronic heart failure with preserved ejection fraction
Mild Anemia
Condition: Fair
Diet: Low Cholesterol, 2 Gram Sodium and Restrict fluids to 48 oz
Activity: With assistance and As tolerated
Driving Restrictions: No driving
Bathing Restrictions: None
Blood Work: Repeat CBC and BMP with primary care provider in 1 week of discharge
Others Tests: repeat chest X-ray with primary care provider in 1 month of discharge.
Other Services: PT and OT
Specialty Instructions: Weigh Daily- Call MD for wt gain/loss 3 lbs overnight/5 lbs in 1 week
Activity Restrictions/Additional Instructions:
Please follow up with primary care provider in 1 week of discharge and keep your appointment with Cardiology.
Home Lasix has been increased to 40 mg daily for better control heart failure.
Amlodipine has been changed to Aldactone for blood pressure control and better control heart failure.
Please take medications as prescribed/recommended and follow up with primary care provider and/or other healthcare provider involved in your care for refills and/or further adjustment to your medication regimen as necessary.
Instructions: *PCP/Other [facility] Heart Failure Instructions
Referrals:
Annamarie Mendoza CRNP [Specified Professional Personl] - 09/10/24 4:20 pm
Venancio Grace DO [Family Provider] - in one week
Prescriptions:
New
furosemide 40 mg Tablet
40 mg PO DAILY Qty: 30 0RF
spironolactone 25 mg Tablet
25 mg PO DAILY Qty: 30 0RF
Continued
metoprolol succinate [Toprol XL] 100 mg Tablet Extended Release 24 Hr
100 mg PO DAILY
latanoprost 0.005 % Drops
1 drp BOTH EYES HS
acetaminophen [Tylenol] 325 mg Tablet
975 mg PO TID
cyanocobalamin (vitamin B-12) 100 mcg Tablet
100 mcg PO DAILY
polyethylene glycol 3350 [Miralax] 17 gram Powder In Packet
17 g PO DAILYPRN PRN (Reason: mild pain)
timolol maleate 0.5 % Drops
1 drp BOTH EYES DAILY
loratadine [Loradamed] 10 mg Tablet
10 mg PO DAILYPRN PRN (Reason: allergies)
rosuvastatin [Crestor] 5 mg Tablet
5 mg PO HS
Eliquis 2.5 mg Tablet
2.5 mg PO BID
lidocaine 4 % Adhesive Patch,Medicated
1 patch TOPICAL DAILY
Rx Instructions:
rt knee
guaifenesin 600 mg tablet extended release 12hr
600 mg PO [id number] PRN (Reason: cough)
dapagliflozin propanediol [Farxiga] 10 mg tablet
10 mg PO DAILY Qty: 30 1RF
Discontinued
amlodipine [Norvasc] 5 mg Tablet
5 mg PO DAILY
furosemide 20 mg Tablet
20 mg PO DAILY Qty: 30 1RF
Discharge Orders:
Discharge Patient (As Directed); Ordered 08/23/24
Ordered By: John Leonard
Discharge Date and Time
Print Language: MAORI
[2024-08-23 15:30] VITALS: BP 117/68
[2024-08-23] MEDS: CRESTOR 5 MG PO (21:00)
[2024-08-23] MEDS: XALATAN OPHTHALMIC SOLUTION 1 DROP BOTH EYES (21:01)
[2024-08-23 23:30] VITALS: BP 123/65
[2024-08-24 05:51] VITALS: BMI 18.8
--- NOTE | 2024-08-24 08:05 | W.PN.HOSP.TC ---
Today's Communication/Plan
-
discharge
Assessment / Plan
Assessment / Plan
Physical exam:
General: Well Developed, Well Nourished and No Apparent Distress
HEENT: Normocephalic, Atraumatic and Moist Mucous Membranes
Respiratory: Clear to Auscultation; Negative Wheezes, Rales or Rhonchi
Cardiac: Regular Rhythm and S1/S2
GI: Soft, Nontender and Nondistended
Musculoskeletal: No Clubbing, No Cyanosis and No Edema
Neuro: Awake, Alert and Oriented
Psych: Calm
A/P: 89F HTN CVA afib here for acute on chronic respiratory failure 2/2 acute on chronic HFpEF
# Acute on chronic hypoxic respiratory failure likely secondary to CHF/pleural effusion
-weaned down to baseline 2L
-Chest x-ray with impression of Cardiomegaly with mild pulmonary edema, moderate right pleural effusion and small-moderate left pleural effusion
-Following diuresis, repeat chest x-ray showed improvement pulm Edema
-BNP 4040
-COVID negative
-Echo Jun 2024: Normal biventricular size and systolic function without regional wall motion abnormality. Mild concentric left ventricular hypertrophy. Stage I diastolic dysfunction. Mild mitral regurgitation.
-Currently on oral Lasix 40 mg p.o. daily
-Strict KIMBERLY
-Daily weight, fluid restriction
-Cardiology consult appreciated
-Amlodipine changed to Aldactone 25 mg p.o. daily
-Medically stable for discharge
# Anemia of chronic disease
-H&H stable
-No active bleeding
#Hypokalemia
resolved
#Hyponatremia
resolved
#CVA with Residual Right Hemiparesis (Aug 2023)
# Permanent Atrial Fibrillation/Flutter
-EKG in A-fib, heart rate controlled
-Metoprolol Succinate 100 mg p.o. daily continued
-Continue Eliquis 2.5 mg p.o. twice daily (renally dosed due to age and weight)
#Essential Hypertension
-Norvasc switched to Aldactone as above
#Hyperlipidemia
-Continue Crestor
#Glaucoma
-Continue latanoprost and timolol drops
DVT Prophylaxis: Eliquis
Code Status: DNR
Medically stable for discharge back to [facility] pending facility acceptance
discussed with patient and patient's nephew NICOLASA Muñoz
I spent a total of 30 minutes with the patient or on the floor. More than 50% of this time involved counseling and coordination of care.
Anticipated Discharge: Today
Subjective/Interval History
-
Date of Service: August 24, 2024
Seen and examined at bedside in no acute distress. Denies new acute issues. Eager to go home.
Objective Data
-
Vital Signs:
Vital Signs
Temp Pulse Resp BP Pulse Ox
97.6 F 65 18 123/65 99
08/23/24 23:30 08/23/24 23:30 08/23/24 23:30 08/23/24 23:30 08/23/24 23:30
I&O
08/23/24 08/24/24 08/25/24
06:59 06:59 06:59
Intake Total 600 / 600 480 / 480
Balance 600 / 600 480 / 480
[2024-08-24] MEDS: VITAMIN B-12 100 MCG PO (08:27)
[2024-08-24] MEDS: ALDACTONE 25 MG PO (08:27)
[2024-08-24] MEDS: ELIQUIS 2.5 MG PO (08:28)
[2024-08-24] MEDS: TOPROL XL 100 MG PO (08:28)
[2024-08-24] MEDS: LASIX 40 MG PO (08:29)
[2024-08-24] MEDS: TYLENOL 975 MG PO (08:30)
[2024-08-24] MEDS: FARXIGA 10 MG PO (08:30)
[2024-08-24] MEDS: LIDOCAINE 4% PATCH 1 PATCH TOPICAL (08:31)
[2024-08-24] MEDS: TIMOPTIC 0.5% OPHTHALMIC SOLUTION 1 DROP BOTH EYES (08:33)
[2024-08-24 08:40] VITALS: BP 115/77
--- NOTE | 2024-08-24 10:36 | CM ---
regional program manager spoke with Amrita in admissions at [facility] this am and plan is for patient to transfer to [facility] today, 11am forklift picker.
frederick; return to [facility] with [facility], ambulance transport required, forms on chart.
[facility]
Report [phone]
== END 2024-08-24 11:22 | disposition home health service (06) | DRG 291 ==
LOC: 4 WEST ACU 19:16
PROVIDERS: Hospitalist; Registered Nurse; ADMITTING PHYSICIAN Hospitalist; ATTENDING PHYSICIAN Internal Medicine; EMERGENCY PHYSICIAN Student in an Organized Health Care Education/Training Program; FAMILY PHYSICIAN Internal Medicine; OTHER PHYSICIAN Internal Medicine Cardiovascular Disease
DX: I11.0 Hypertensive heart disease with heart failure (principal); I50.33 Acute on chronic diastolic (congestive) heart failure; J96.21 Acute and chronic respiratory failure with hypoxia; I69.351 Hemiplegia and hemiparesis following cerebral infarction affecting right dominant side; I48.21 Permanent atrial fibrillation; I48.92 Unspecified atrial flutter; E87.1 Hypo-osmolality and hyponatremia; Z68.1 Body mass index [BMI] 19.9 or less, adult; Z11.52 Encounter for screening for COVID-19; Z66 Do not resuscitate; Z87.891 Personal history of nicotine dependence; D63.8 Anemia in other chronic diseases classified elsewhere; Z79.01 Long term (current) use of anticoagulants; H40.9 Unspecified glaucoma; E87.6 Hypokalemia; E78.00 Pure hypercholesterolemia, unspecified; R63.6 Underweight
CPT/HCPCS: 71046; 80048; 80053; 80061; 82962; 83735; 83880; 84443; 84484; 85025; 85027; 87502; 87811; 93005; 96374; 97162; 97166; 99285

== ENCOUNTER → 2024-09-07 12:09 | Outpatient (REF) | payer MEDICARE, SELFPAY ==
[2024-09-07 13:25] LABS: Hematocrit 33.4 % (37.0-47.0); Hemoglobin 9.7 g/dL (12.0-16.0); Mean Corpuscular Volume 89.5 fL (81.0-99.0); Mean Platelet Volume 9.5 fL (7.4-10.4); Platelet Count 428 10^3/uL (130-400); Red Blood Cell Count 3.73 10^6/uL (4.20-5.40); Red Cell Dist. Width 14.8 % (11.5-14.5)
[2024-09-07 13:54] LABS: Blood Urea Nitrogen 20 mg/dl (7-17); Calcium 9.4 mg/dl (8.4-10.2); Carbon Dioxide 29 mmol/L (22-30); Chloride 99 mmol/L (98-107); Glucose 96 mg/dl (70-99); Potassium 3.9 mmol/L (3.5-5.1); Sodium 136 mmol/L (135-145); eGFR > 60.00
== END ==
LOC: OLABPATH 12:09
PROVIDERS: ATTENDING PHYSICIAN Internal Medicine
DX: J96.01 Acute respiratory failure with hypoxia (principal); I50.21 Acute systolic (congestive) heart failure
CPT/HCPCS: 36415; 80048; 85027